=== PATIENT | male | born 2000 | race Caucasian/White ===

== ENCOUNTER 2022-03-24 13:05 | Inpatient (IN) ==
[2022-03-24] MEDS ORDERED: LORazepam 2 MG/1 ML VIAL ONE ×3 (13:46→13:51)
[2022-03-24] MEDS ORDERED: levETIRAcetam 1,000 MG in 0.9 % SODIUM CHLORIDE 100 ML IV STA (13:50)
[2022-03-24] MEDS ORDERED: KETAMINE HCL INJ 50 MG/ML 10 ML VIAL ONE (13:56)
[2022-03-24] MEDS ORDERED: diphenhydrAMINE 50 MG/ML VIAL ONE ×2 (14:00→15:12)
[2022-03-24 14:17] LABS: Basophils # (auto) 0.06 K/uL (0-0.2); Basophils % (auto) 0.5 %; Eosinophils # (auto) 0.04 K/uL (0-0.50); Eosinophils % (auto) 0.3 %; Hematocrit (blood only) 46.8 % (40.1-51.0); Immature Granulocytes # (auto) 0.11 K/uL (0.00-0.02); Immature Granulocytes % (auto) 0.9 %; Lymphocytes # (auto) 1.87 K/uL (1.2-3.4); Lymphocytes % (auto) 14.5 %; Mean Corpuscular Hemoglobin 32.5 pg (25.0-34.0); Mean Corpuscular Hgb Conc 34.2 g/dL (32.0-36.0); Mean Corpuscular Volume 94.9 fL (80.0-100.0); Mean Platelet Volume 10.1 fL (9.4-12.4); Monocytes # (auto) 0.67 K/uL (0.24-0.82); Monocytes % (auto) 5.2 %; Neutrophils # (auto) 10.18 K/uL (1.4-6.5); Neutrophils % (auto) 78.6 %; Platelet Count 307 K/uL (130-400); RDW Coefficient of Variation 12.2 % (11.5-14.5); RDW Standard Deviation 42.6 fL (36.4-46.3); Red Blood Count 4.93 M/uL (4.63-6.08); White Blood Count 12.93 K/ul (4.8-10.8)
[2022-03-24] MEDS ORDERED: LORazepam 2 MG/1 ML VIAL IV STA ×2 (14:18)
[2022-03-24] MEDS ORDERED: KETAMINE HCL INJ 50 MG/ML 10 ML VIAL IV STA ×2 (14:18→14:48)
--- NOTE | 2022-03-24 14:24 | Emergency Department Note ---
Impression & Plan Delirium, Seizure ED Provider Note HISTORY OF PRESENT ILLNESS: Patient is a 23-year-old male presenting with seizure-like activity. Per report, patient was found by his roommate in his parked car and having seizure- like activity. He was able to get the patient out of the car and called 911. On EMS arrival, they found the patient face down and postictal. Roommate reports that the patient was acting very abnormally today and seemed to be having significant panic attacks. No reported seizure history. No reported changes in medications. No reported head trauma. On arrival to the ER, the patient is actively seizing ROS: Patient currently has altered mental status and is unable to provide accurate information regarding ROS, histories, meds, or allergies. Any information regarding ROS, Past medical or surgical history, social or family history documented below has been obtained from the EMR. Any additional history regarding this cannot be obtained presently due to his medical condition. PHYSICAL EXAM: Constitutional: Patient appears in mild distress. HENT: Head: Normocephalic and atraumatic. Eyes: EOMI, PERRL Mouth/Throat: Mucous membranes moist. Mucousa is bloody. Small laceration to tongue. Neck: Trachea midline. Neck supple. Cardiovascular: Tachycardic with regular rhythm. No murmurs, rubs or gallops. Intact distal pulses. Pulmonary/Chest: No respiratory distress. Breath sounds clear and equal bilaterally. No wheezes or rales. No chest wall tenderness to palpation. Abdominal: BS +. Abdomen soft, no tenderness, rebound or guarding. Back: No midline spinal tenderness, no paraspinal tenderness, no CVA tenderness. Musculoskeletal: No edema, tenderness or deformity noted. Skin: Warm and dry. No rash, erythema, pallor or cyanosis Psychiatric: Unable to assess Neurological: Patient witnessed having a tonic-clonic seizure. Lasted for about 1 minute and was given 2 mg of Ativan. Patient is postictal and confused but moving all extremities spontaneously MDM: - Patient presented with seizure-like activity. On my assessment, the patient is actively seizing. He was given 2 mg of IV Ativan with cessation of the seizure. However, the patient was significantly confused postictal and was attempting to punch myself and nursing staff. He was given an additional 2 mg of Ativan but continued to be unruly. For patient and staff safety, the patient was given 100 mg IV ketamine and 50 mg of IV Benadryl for sedation. He was then placed in restraints in order to facilitate care. -About 20 minutes after sedation was given, patient began to thrash on the bed and attempt to block restraints. He was yelling obscenities at nursing staff. He was given an additional 100 mg of IV ketamine, Ativan and further Benadryl for sedation - EKG negative for acute ischemic changes. - Laboratory workup showed leukocytosis (WBC 12.93 - likely secondary to seizure episode); stable electrolytes; elevated anion gap (17 - due to elevated lactate); elevated lactate (16); elevated procal (21.23) - Bonner inserted. - Initial CXR negative for acute pathology. -Patient again awoke from sedation completely oriented yelling obscenities and attempting to swing at staff while in restraints. Decision was made to intubate the patient for agitated delirium. RSI with etomidate, 100 mg IV ketamine and rocuronium. Post-intubation sedation with propofol. - CT head wo contrast ordered. - Hospitlaist, Dr. Euceda, consulted for admission. - Patient admitted to ICU under hospitalist service for further evaluation and management. Endotracheal Intubation Indication: agitated delirium. The patient was on 100% oxygen via NC prior to the procedure. Suction, airway equipment, RSI drugs, respiratory equipment, and appropriate personnel were prepared prior to the initiation of the procedure. Induction was performed with 20 mg IV etomidate and 100 mg IV ketamine. After observing the clinical benefit of the medications, the airway was easily visualized utilizing a glidescope. A 7.5 size ETT tube was placed atraumatically to 25 cm using standard technique. The cuff inflated without signs of malfunction. There were bilateral breath sounds, positive colormetric change, no gastric sounds, a good capnography waveform, and post procedure pulse oximetry was 95%. Post intubation sedation was administered using propofol. There were no complications. ASSESSMENT AND PLAN: Diagnosis: agitated delirium; seizures Plan: admit Past Med/Surg History Medical History Lumbar pain Social History Smoking Status: Current some day smoker Hx Alcohol Use: Yes Alcohol Intake Frequency: 2-3 x/Week Alcohol Intake Frequency Comment: 1-2 drinks/week Hx Substance Use: No Preferred Language: Azeri current occupational status: student Feels Safe at Home: Yes Allergies Allergies Allergy/AdvReac Type Severity Reaction Status Date / Time No Known Allergies Allergy Verified 03/24/22 15:13 Home Meds Home Medications Medication Instructions Recorded Confirmed No Known Home Medications 03/24/22 03/24/22 Results & Data (ED) Vital Signs Vital Signs - 24 hr 03/24/22 13:16 03/24/22 13:27 03/24/22 15:03 Temperature 36.6 C Temperature Source Oral Pulse Rate 105 H Pulse Rate [Left Finger] Pulse Rhythm Regular Respiratory Rate 18 Respiratory Effort / Characteristics Non-Labored Spontaneous Respiratory Depth Normal Respiratory Pattern Regular Blood Pressure 118/62 Blood Pressure [Left Arm] Blood Pressure Mean 80 Blood Pressure Mean [Left Arm] Blood Pressure Position Lying Blood Pressure Position [Left Arm] Pulse Oximetry 95 100 Oxygen Delivery Method Room Air Room Air Nasal Cannula Oxygen Flow Rate 95 4 Sepsis Recent Fever Within 48 Hours No Sepsis New/Unexplained Change in Mental Status No Sepsis Action Taken by Nursing No Action Required Oxygen Flow Rate - Titration 2 Pulse Oximetry Post Tiitration 100 03/24/22 16:00 Temperature Temperature Source Pulse Rate Pulse Rate [Left Finger] 119 H Pulse Rhythm Respiratory Rate 21 Respiratory Effort / Characteristics Respiratory Depth Respiratory Pattern Blood Pressure Blood Pressure [Left Arm] 166/89 H Blood Pressure Mean Blood Pressure Mean [Left Arm] 114 Blood Pressure Position Blood Pressure Position [Left Arm] Lying Pulse Oximetry 95 Oxygen Delivery Method Mechanical Vent Oxygen Flow Rate Sepsis Recent Fever Within 48 Hours Sepsis New/Unexplained Change in Mental Status Sepsis Action Taken by Nursing Oxygen Flow Rate - Titration Pulse Oximetry Post Tiitration Laboratory Data Result diagrams: 03/24/22 13:22 03/24/22 13:22 Lab Results 03/24/22 03/24/22 03/24/22 Range/Units 13:22 13:22 13:22 WBC 12.93 H (4.8-10.8) K/ul RBC 4.93 (4.63-6.08) M/uL Hgb 16.0 (14.0-18.0) g/dl POC Hgb (14.0-18.0) g/dl Hct 46.8 (40.1-51.0) % POC Hct (42-52) % MCV 94.9 (80.0-100.0) fL MCH 32.5 (25.0-34.0) pg MCHC 34.2 (32.0-36.0) g/dL RDW Std Deviation 42.6 (36.4-46.3) fL RDW Coeff of Hailey 12.2 (11.5-14.5) % Plt Count 307 (130-400) K/uL MPV 10.1 (9.4-12.4) fL Immature Gran % (Auto) 0.9 % Neut % (Auto) 78.6 % Lymph % (Auto) 14.5 % [place] % (Auto) 5.2 % Eos % (Auto) 0.3 % Baso % (Auto) 0.5 % Neut # (Auto) 10.18 H (1.4-6.5) K/uL Lymph # (Auto) 1.87 (1.2-3.4) K/uL [place] # (Auto) 0.67 (0.24-0.82) K/uL Eos # (Auto) 0.04 (0-0.50) K/uL Baso # (Auto) 0.06 (0-0.2) K/uL Immature Gran # (Auto) 0.11 H (0.00-0.02) K/uL POC Sodium (135-144) mmol/L Sodium 136 (136-145) mmol/L POC Potassium (3.3-5.0) mmol/L Potassium 4.5 (3.5-5.1) mmol/L POC Chloride (101-112) mmol/L Chloride 103 (98-107) mmol/L Carbon Dioxide 16 L (21-32) mmol/L POC Total CO2 (24-31) mmol/L Anion Gap 17 H (3-11) POC Anion Gap (16-25) mmol/L POC BUN (7-18) mg/dl BUN 17 (6-23) mg/dl Creatinine 1.33 (0.6-1.4) mg/dl POC Creatinine (0.6-1.3) mg/dl Est Cr Clr Drug Dosing 95.6 ml/min Est GFR ( Amer) 87.3 ml/min Est GFR (Non-Af Amer) 75.3 ml/min BUN/Creatinine Ratio 12.8 (10-20) Glucose 159 H (70-99(Fasting)) mg/dl POC Glucose (other) (70-99) mg/dl Lactate (0.4-2.0) mmol/L Calcium 9.5 (8.5-10.1) mg/dl POC Ioniz Calcium Pat (1.12-1.32) mmol/l Total Bilirubin 0.4 (0.2-1.0) mg/dl AST 25 (13-39) U/L ALT 23 (7-52) U/L Alkaline Phosphatase 74 (34-104) U/L Total Protein 7.8 (6.0-8.3) gm/dl Albumin 4.9 (3.4-5.0) gm/dl Globulin 2.9 (2.5-4.0) gm/dl Albumin/Globulin Ratio 1.7 (0.9-2) Prolactin 21.23 ng/ml Urine Color Urine Appearance (Clear) Urine pH (4.5-7.5) Ur Specific [place] (1.000-1.030) Urine Protein (Negative) Urine Glucose (UA) (Negative) Urine Ketones (Negative) Urine Blood (Negative) Urine Nitrite (Negative) Urine Bilirubin (Negative) Urine Urobilinogen (Negative) Ur Leukocyte Esterase (Negative) Ethyl Alcohol mg/dL (<10.0) mg/dl 03/24/22 03/24/22 03/24/22 Range/Units 13:22 14:19 14:22 WBC (4.8-10.8) K/ul RBC (4.63-6.08) M/uL Hgb (14.0-18.0) g/dl POC Hgb 17.0 (14.0-18.0) g/dl Hct (40.1-51.0) % POC Hct 50 (42-52) % MCV (80.0-100.0) fL MCH (25.0-34.0) pg MCHC (32.0-36.0) g/dL RDW Std Deviation (36.4-46.3) fL RDW Coeff of Hailey (11.5-14.5) % Plt Count (130-400) K/uL MPV (9.4-12.4) fL Immature Gran % (Auto) % Neut % (Auto) % Lymph % (Auto) % [place] % (Auto) % Eos % (Auto) % Baso % (Auto) % Neut # (Auto) (1.4-6.5) K/uL Lymph # (Auto) (1.2-3.4) K/uL [place] # (Auto) (0.24-0.82) K/uL Eos # (Auto) (0-0.50) K/uL Baso # (Auto) (0-0.2) K/uL Immature Gran # (Auto) (0.00-0.02) K/uL POC Sodium 141 (135-144) mmol/L Sodium (136-145) mmol/L POC Potassium 4.0 (3.3-5.0) mmol/L Potassium (3.5-5.1) mmol/L POC Chloride 110 (101-112) mmol/L Chloride (98-107) mmol/L Carbon Dioxide (21-32) mmol/L POC Total CO2 10 L (24-31) mmol/L Anion Gap (3-11) POC Anion Gap 26.0 H (16-25) mmol/L POC BUN 19 H (7-18) mg/dl BUN (6-23) mg/dl Creatinine (0.6-1.4) mg/dl POC Creatinine 1.3 (0.6-1.3) mg/dl Est Cr Clr Drug Dosing ml/min Est GFR ( Amer) ml/min Est GFR (Non-Af Amer) ml/min BUN/Creatinine Ratio (10-20) Glucose (70-99(Fasting)) mg/dl POC Glucose (other) 161 H (70-99) mg/dl Lactate 16.0 H* (0.4-2.0) mmol/L Calcium (8.5-10.1) mg/dl POC Ioniz Calcium Pat 1.21 (1.12-1.32) mmol/l Total Bilirubin (0.2-1.0) mg/dl AST (13-39) U/L ALT (7-52) U/L Alkaline Phosphatase (34-104) U/L Total Protein (6.0-8.3) gm/dl Albumin (3.4-5.0) gm/dl Globulin (2.5-4.0) gm/dl Albumin/Globulin Ratio (0.9-2) Prolactin ng/ml Urine Color Urine Appearance (Clear) Urine pH (4.5-7.5) Ur Specific [place] (1.000-1.030) Urine Protein (Negative) Urine Glucose (UA) (Negative) Urine Ketones (Negative) Urine Blood (Negative) Urine Nitrite (Negative) Urine Bilirubin (Negative) Urine Urobilinogen (Negative) Ur Leukocyte Esterase (Negative) Ethyl Alcohol mg/dL < 10.0 (<10.0) mg/dl 03/24/22 Range/Units 15:30 WBC (4.8-10.8) K/ul RBC (4.63-6.08) M/uL Hgb (14.0-18.0) g/dl POC Hgb (14.0-18.0) g/dl Hct (40.1-51.0) % POC Hct (42-52) % MCV (80.0-100.0) fL MCH (25.0-34.0) pg MCHC (32.0-36.0) g/dL RDW Std Deviation (36.4-46.3) fL RDW Coeff of Hailey (11.5-14.5) % Plt Count (130-400) K/uL MPV (9.4-12.4) fL Immature Gran % (Auto) % Neut % (Auto) % Lymph % (Auto) % [place] % (Auto) % Eos % (Auto) % Baso % (Auto) % Neut # (Auto) (1.4-6.5) K/uL Lymph # (Auto) (1.2-3.4) K/uL [place] # (Auto) (0.24-0.82) K/uL Eos # (Auto) (0-0.50) K/uL Baso # (Auto) (0-0.2) K/uL Immature Gran # (Auto) (0.00-0.02) K/uL POC Sodium (135-144) mmol/L Sodium (136-145) mmol/L POC Potassium (3.3-5.0) mmol/L Potassium (3.5-5.1) mmol/L POC Chloride (101-112) mmol/L Chloride (98-107) mmol/L Carbon Dioxide (21-32) mmol/L POC Total CO2 (24-31) mmol/L Anion Gap (3-11) POC Anion Gap (16-25) mmol/L POC BUN (7-18) mg/dl BUN (6-23) mg/dl Creatinine (0.6-1.4) mg/dl POC Creatinine (0.6-1.3) mg/dl Est Cr Clr Drug Dosing ml/min Est GFR ( Amer) ml/min Est GFR (Non-Af Amer) ml/min BUN/Creatinine Ratio (10-20) Glucose (70-99(Fasting)) mg/dl POC Glucose (other) (70-99) mg/dl Lactate (0.4-2.0) mmol/L Calcium (8.5-10.1) mg/dl POC Ioniz Calcium Pat (1.12-1.32) mmol/l Total Bilirubin (0.2-1.0) mg/dl AST (13-39) U/L ALT (7-52) U/L Alkaline Phosphatase (34-104) U/L Total Protein (6.0-8.3) gm/dl Albumin (3.4-5.0) gm/dl Globulin (2.5-4.0) gm/dl Albumin/Globulin Ratio (0.9-2) Prolactin ng/ml Urine Color Yellow Urine Appearance Clear (Clear) Urine pH 5.0 (4.5-7.5) Ur Specific [place] 1.014 (1.000-1.030) Urine Protein 1+ H (Negative) Urine Glucose (UA) Negative (Negative) Urine Ketones Negative (Negative) Urine Blood 2+ H (Negative) Urine Nitrite Negative (Negative) Urine Bilirubin Negative (Negative) Urine Urobilinogen Negative (Negative) Ur Leukocyte Esterase Negative (Negative) Ethyl Alcohol mg/dL (<10.0) mg/dl Administered Medications Propofol (Diprivan) 1,000 mg in 100 mls @ 10.956 mls/hr IV .[id number] [facility]; Protocol Stop: 03/27/22 15:59 Last Admin: 03/24/22 16:00 Dose: 20 mcg/kg/min, 11 mls/hr Documented By: LOLA Co-signed By: MARK Propofol (Propofol Bolus From Bag) 20 mg IV Q5M PRN PRN Reason: Sedation Stop: 03/27/22 15:56 Last Admin: 03/24/22 16:25 Dose: 20 mg Documented By: LOLA Co-signed By: MARK Discontinued Medications Diphenhydramine HCl (Diphenhydramine 50 Mg/Ml Vial) Confirm Administered Dose 50 mg .ROUTE .STK-MED ONE Stop: 03/24/22 14:01 Last Admin: 03/24/22 14:33 Dose: 50 mg Documented By: PEARL Diphenhydramine HCl (Diphenhydramine 50 Mg/Ml Vial) Confirm Administered Dose 50 mg .ROUTE .STK-MED ONE Stop: 03/24/22 15:13 Last Admin: 03/24/22 15:17 Dose: 25 mg Documented By: PEARL Levetiracetam 1,000 mg/ Sodium (Chloride) 110 mls @ 440 mls/hr IV NOW STA Stop: 03/24/22 14:04 Last Infusion: 03/24/22 14:57 Dose: 0 mls/hr Documented By: Admin: 03/24/22 14:32 Dose: 440 mls/hr Documented By: PEARL Sodium Chloride (Nss 1000ml) 1,000 mls @ 999 mls/hr IV .Q1H1M ONE Stop: 03/24/22 15:48 Last Admin: 03/24/22 14:57 Dose: 999 mls/hr Documented By: NEETU Ketamine HCl (Ketamine Hcl Inj 50 Mg/Ml 10 Ml Vial) Confirm Administered Dose 500 mg .ROUTE .STK-MED ONE Stop: 03/24/22 13:57 Last Admin: 03/24/22 14:32 Dose: Not Given Documented By: PEARL Ketamine HCl (Ketamine Hcl Inj 50 Mg/Ml 10 Ml Vial) 100 mg IV NOW STA Stop: 03/24/22 14:19 Last Admin: 03/24/22 14:31 Dose: 100 mg Documented By: PEARL Ketamine HCl (Ketamine Hcl Inj 50 Mg/Ml 10 Ml Vial) 100 mg IV NOW STA Stop: 03/24/22 14:49 Last Admin: 03/24/22 14:56 Dose: 100 mg Documented By: PEARL Lorazepam (Lorazepam 1 Mg/1 Ml Syr) Confirm Administered Dose 1 mg .ROUTE .STK- MED ONE Stop: 03/24/22 13:47 Last Admin: 03/24/22 14:32 Dose: Not Given Documented By: PEARL Lorazepam (Lorazepam 1 Mg/1 Ml Syr) Confirm Administered Dose 1 mg .ROUTE .STK- MED ONE Stop: 03/24/22 13:49 Last Admin: 03/24/22 14:32 Dose: Not Given Documented By: PEARL Lorazepam (Lorazepam 1 Mg/1 Ml Syr) Confirm Administered Dose 2 mg .ROUTE .STK- MED ONE Stop: 03/24/22 13:52 Last Admin: 03/24/22 14:32 Dose: Not Given Documented By: PEARL Lorazepam (Lorazepam 1 Mg/1 Ml Syr) 2 mg IV NOW STA; Protocol Stop: 03/24/22 14:19 Last Admin: 03/24/22 14:32 Dose: 2 mg Documented By: PEARL Lorazepam (Lorazepam 1 Mg/1 Ml Syr) 2 mg IV NOW STA; Protocol Stop: 03/24/22 14:19 Last Admin: 03/24/22 14:31 Dose: 2 mg Documented By: PEARL Miscellaneous (Rapid Sequence Induction Bag) Confirm Administered Dose 1 each .ROUTE .STK-MED ONE Stop: 03/24/22 15:37 Last Admin: 03/24/22 16:19 Dose: Not Given Documented By: LOLA Propofol (Propofol Iv Emulsion 10 Mg/Ml 100 Ml Vial) Confirm Administered Dose 1,000 mg IV .STK-MED ONE Stop: 03/24/22 15:48 Last Admin: 03/24/22 16:19 Dose: Not Given Documented By: LOLA Imaging Data Radiologist's Impression: Chest X-Ray 03/24/22 14:02 SINGLE VIEW CHEST CLINICAL HISTORY: Seizure. FINDINGS: An AP, portable, supine chest radiograph is obtained. No prior studies are available for comparison at the time of dictation. The examination is degraded by portable technique and apical lordotic positioning. The cardiomediastinal silhouette is unremarkable. The lungs and pleural spaces are clear. No pneumothorax is seen. The bony thorax is grossly intact. IMPRESSION: No active disease in the chest. ACT 112: Negative or not required by law. Electronically signed by: Luis Contreras M.D. 03/24/2022 2:35 PM Chest X-Ray 03/24/22 16:00 SINGLE VIEW CHEST CLINICAL HISTORY: Intubation. FINDINGS: 2 AP, portable, supine chest radiographs are compared to study dated 03/24/2022. An endotracheal tube has been placed. The tip projects 2.5 cm above the trever. The cardiomediastinal silhouette is unremarkable. Bilateral airspace opacities are new from previous. No large pleural effusion or pneumothorax is seen. The bony thorax is grossly intact. IMPRESSION: 1. An endotracheal tube has been placed as above. 2. Multifocal bilateral airspace opacities are new from today's earlier examination. The appearance/time course favors developing pulmonary edema. Multifocal pneumonia could appear similar and clinical correlation will be required. Radiographic follow-up to resolution is recommended. ACT 112: Negative or not required by law. Electronically signed by: Luis Contreras M.D. 03/24/2022 4:17 PM Discharge Plan Visit Data Chief Complaint: Seizure Stated Complaint: SEIZURE ED Provider: Patricia Guzman Discharge Problem: Delirium, Seizure Patient Disposition: Admitted As Inpatient Forms Stand Alone [facility]: [facility] Prescriptions Prescriptions: No Action No Known Home Medications Referrals Referrals: PCP,NO [Primary Care Provider] -
[2022-03-24 14:33] LABS: iSTAT Creatinine 1.3 mg/dl (0.6-1.3); iSTAT Ionized Calcium 1.21 mmol/l (1.12-1.32)
[2022-03-24 14:35] LABS: Albumin Globulin Ratio 1.7 (0.9-2); Albumin Level 4.9 gm/dl (3.4-5.0); BUN Creatinine Ratio 12.8 (10-20); Bilirubin,Total 0.4 mg/dl (0.2-1.0); Calcium 9.5 mg/dl (8.5-10.1); Creatinine Clr Calc Pharmacy 95.6 ml/min; Est GFR (African American) 87.3 ml/min; Est GFR (Non-African American) 75.3 ml/min; Globulin 2.9 gm/dl (2.5-4.0); Potassium 4.5 mmol/L (3.5-5.1); Total Protein 7.8 gm/dl (6.0-8.3)
--- NOTE | 2022-03-24 14:37 | XRay Report ---
SINGLE VIEW CHEST CLINICAL HISTORY: Seizure. FINDINGS: An AP, portable, supine chest radiograph is obtained. No prior studies are available for co mparison at the time of dictation. The examination is degraded by portable technique and apical lordo tic positioning. The cardiomediastinal silhouette is unremarkable. The lungs and pleural spaces are c lear. No pneumothorax is seen. The bony thorax is grossly intact. IMPRESSION: No active disease in the chest. ACT 112: Negative or not required by law. Electronically signed by: Luis Contreras M.D. 03/24/2022 2:35 PM
[2022-03-24] MEDS ORDERED: SODIUM CHLORIDE 0.9% 1000ML 1,000 ML IV ONE ×2 (14:48→17:27)
[2022-03-24] MEDS ORDERED: RAPID SEQUENCE INDUCTION BAG ONE (15:36)
[2022-03-24] MEDS ORDERED: PROPOFOL IV EMULSION 10 MG/ML 100 ML VIAL IV ONE (15:47)
[2022-03-24] MEDS ORDERED: STAT IV Infusion **Titration per Protocol STA ×2 (15:57→16:47)
[2022-03-24] MEDS: propofoL 1,000 MG/100 ML VIAL IV SCH ×2 (16:00→21:45)
[2022-03-24 16:05] LABS: Appearance Urine Clear (Clear); Bacteria Urine Automated Negative (Negative); Bilirubin Urine Negative (Negative); Blood Urine 2+ (Negative); Color Urine Yellow; Glucose Urine UA Negative (Negative); Ketones Urine Negative (Negative); Leukocyte Esterase Urine Negative (Negative); Nitrite Urine Negative (Negative); Protein Urine 1+ (Negative); RBC Urine Automated 0-4 /hpf (0-4); Specific Gravity Urine 1.014 (1.000-1.030); Urobilinogen Urine Negative (Negative)
--- NOTE | 2022-03-24 16:19 | XRay Report ---
SINGLE VIEW CHEST CLINICAL HISTORY: Intubation. FINDINGS: 2 AP, portable, supine chest radiographs are compared to study dated 03/24/2022. An endotrac heal tube has been placed. The tip projects 2.5 cm above the trever. The cardiomediastinal silhouette is unremarkable. Bilateral airspace opacities are new from previous. No large pleural effusion or pn eumothorax is seen. The bony thorax is grossly intact. IMPRESSION: 1. An endotracheal tube has been placed as above. 2. Multifocal bilateral airspace opacities are new from today's earlier examination. The appearance/t cristina course favors developing pulmonary edema. Multifocal pneumonia could appear similar and clinical correlation will be required. Radiographic follow-up to resolution is recommended. ACT 112: Negative or not required by law. Electronically signed by: Luis Contreras M.D. 03/24/2022 4:17 PM
--- NOTE | 2022-03-24 16:19 | History & Physical Report ---
Date of Service March 24, 2022 Assessment & Plan (1) Seizure: Plan: Seizure, delirium.? Encephalopathy No known prior history of seizure Observed seizure activity while in the ER, postictal delirium Patient with history of marijuana use, no known heart drug use Extreme agitation in ER required intubation and sedation Due to severe agitation did receive a total of 300 mg ketamine, 75 mg Benadryl, 5 mg Ativan, 20 mg etomidate, and subsequently rocuroni um/propofol/fentanyl after intubation for airway protection Loaded with 1 g Keppra, continued 500 mg twice daily --> discontinued while on propofol U tox positive for marijuana, negative for PCP CThead pending Consistent with seizure lactate is elevated, patient with a mild leukocytosis? Demargination, no history of fever leading up to admission. - CT naf VBG trended Afebrile on admission, developed a fever after admission. MRI pending Empirically covered with acyclovir/azithromycin/ceftriaxone/vancomycin/dexamethasone Acute hypoxic respiratory failure,? Aspiration pneumonia Initially reported no respiratory symptoms, by roommate reported may have had a sore throat 5 days ago Did develop a fever following admission, MRI pended and covered with empiric antibiotics as Given severe illness and presentation covered with antibiotics as above Blood cultures pending Currently intubated on mechanical ventilation as noted Patient with past history of vape use, none in last 6 months per his brother and no observed vape use per patient's roommate. DVT prophylaxis: SCDs CODE STATUS: Full code Disposition: ICU Diet: N.p.o. (2) Delirium: History of Present Illness Primary Care Provider: NO PCP Elías is a 22-year-old male who resents with altered mental status and who was found down, and on arrival to the ER was actively seizing. Patient was reportedly with altered behavior and increased anxiety for 1 day. 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 He received 200 mg of ketamine, 75 mg of Benadryl, and a total of 5 mg of Ativan and still remained extremely combative. Patient received 20 mg of etomidate, another 100 mg of ketamine, and required rocuronium and intubation for sedation and airway protection. He was loaded with 1 g of Keppra for observed seizure on entry. Urine tox is pending. CThead is pending EKG: Sinus tachycardia, rate 110. No ST segment changes. No T wave inversions. History unable to be obtained the patient did intubation and sedation. Did talk to patient's brother and mother by phone. Patient's mother is Latrice Contreras available at [phone], who lives in [place] and is currently in route to the hospital. She reports that he is otherwise healthy with no chronic medical problems. Did have acne on Accutane as a teenager and history of some bloody noses in childhood, otherwise no medical problems and takes no regular medications. No known medication allergies. Occasional social alcohol use, marijuana use, no known recreational drug/heart drug use. No personal or family history of seizures. No family history of early VA, encephalopathy, heart/lung/renal disease. 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 Per report he was last normal yesterday evening and has had no fever, chills, cough and was not complaining of infecti ous symptoms or being ill leading up to his hospitalization. Per brother has vape in the past but has not in the last couple of months. Per patient's remain he has never seen the patient vape Medical History: Reviewed Medications: Reviewed Surgical History: Reviewed Allergies: Reviewed Social History: Social alcohol, marijuana use. No known heart drug/recreational drug use Code Status: Full code Allergies Allergy/AdvReac Type Severity Reaction Status Date / Time No Known Allergies Allergy Verified 03/24/22 15:13 Home Medications Medication Instructions Recorded Confirmed Type No Known Home Medications 03/24/22 03/24/22 History Past Med/Surg History Medical History Acute encephalopathy Acute hypoxemic respiratory failure Lumbar pain Marijuana abuse Sepsis Social History Smoking Status: Current some day smoker Hx Alcohol Use: Yes Alcohol Intake Frequency: 2-3 x/Week Alcohol Intake Frequency Comment: 1-2 drinks/week Hx Substance Use: No Preferred Language: [place] current occupational status: student Feels Safe at Home: Yes Review of Systems Review of Systems: Unobtainable due to ETT Physical Exam Physical Exam: General: Sedated, ETT in place. HEENT: Atraumatic, normocephalic. Pulm: Intubated, ventilated, diffusely coarse Cardiac: Tachycardic, -mrg. Radial pulses intact and symmetrical. Abdominal: Nontender, nondistended, soft. BS present. Extremities: Warm, dry Results & Data Results & [facility] ([facility]) Vital Signs (Past 12 Hours) Vital Signs Temp Pulse Resp BP Pulse Ox O2 Del Method O2 Flow Rate 03/24/22 15:03 100 Nasal Cannula 4 03/24/22 13:27 Room Air 95 03/24/22 13:16 36.6 C 105 H 18 118/62 95 Room Air PG Care Time/CCT Total # of Minutes Spent Total Time Spent with Patient: Total time spent is greater than 50% in coordination of care (as documented) at patient's floor/unit and/or counseling patient: Coding Level of Care Code 47591 Initial Inpt Care Lvl 3 Diagnoses Seizure R56.9 Delirium R41.0
[2022-03-24] MEDS: PROPOFOL BOLUS FROM BAG IV PRN ×4 (16:25→17:00)
[2022-03-24 16:39] LABS: Uric Acid Crystals Urine Present (None Prsent)
[2022-03-24] MEDS ORDERED: fentaNYL citrate 2,500 MCG/250 ML BAG IV ONE (16:45)
[2022-03-24] MEDS ORDERED: fentaNYL BOLUS from BAG IV STA (16:48)
[2022-03-24] MEDS: fentaNYL citrate 2,500 MCG/250 ML BAG IV SCH (16:50)
[2022-03-24 16:54] LABS: Amphetamines+Metham, Urine Neg (Neg); Barbiturates, Urine Neg (Neg); Benzodiazepine, Urine Neg (Neg); Cocaine, Urine Neg (Neg); MDMA (Ecstacy), Urine Neg (Neg); Methadone, Urine Neg (Neg); Opiate, Urine Neg (Neg); Phencyclidine, Urine Neg (Neg)
--- NOTE | 2022-03-24 16:56 | Electrocardiogram Report ---
Test Reason : Blood Pressure : / mmHG Vent. Rate : 111 BPM Atrial Rate : 111 BPM P-R Int : 132 ms QRS Dur : 086 ms QT Int : 332 ms P-R-T Axes : 063 061 036 degrees QTc Int : 451 ms Poor data quality, interpretation may be adversely affected Sinus tachycardia Poor R wave progression, consider anterior MN vs. lead placement vs. LVH Abnormal ECG No previous ECGs available Confirmed by Jose Elias Schulz ([id number]) on 03/24/2022 4:56:09 PM Referred By: Confirmed By:Jose Elias Schulz
[2022-03-24] MEDS: fentaNYL BOLUS from BAG IV PRN (17:00)
[2022-03-24] MEDS ORDERED: LORazepam 2 MG/1 ML VIAL IV PRN (17:04)
[2022-03-24 17:11] LABS: Base Excess VBG -12.6 mEq/L; HCO3 VBG 17 mmol/L; Oxygen Saturation VBG 99.3 %; PCO2 VBG 50 mmHg (38-50); PO2 VBG 120 mmHg; pH VBG 7.13 (7.36-7.41)
[2022-03-24 17:38] LABS: iSTAT Arterial Blood Gas HCO3 20 meg/L (19-24); iSTAT Arterial Blood Gas pCO2 41 mmHg (35-46); iSTAT Arterial Blood Gas pH 7.31 (7.35-7.45); iSTAT Arterial Blood Gas pO2 86 mmHg (80-95); iSTAT Carbon Dioxide 21 mmol/L (24-31); iSTAT Hematocrit 38 % (42-52); iSTAT Hemoglobin 12.9 g/dl (14.0-18.0); iSTAT Potassium 4.3 mmol/L (3.3-5.0); iSTAT Sodium 140 mmol/L (135-144)
--- NOTE | 2022-03-24 18:04 | CT Scan Report ---
CT SCAN OF THE BRAIN WITHOUT IV CONTRAST CLINICAL HISTORY: New onset seizure. COMPARISON STUDY: No priors. TECHNIQUE: Unenhanced axial CT scan of the brain is performed from the vertex to the skull base. A d ose lowering technique was utilized adhering to the principles of ALARA. The skull base was scanned t wice due to motion artifact. CT DOSE: 2360.32 mGy.cm FINDINGS: An endotracheal tube is noted on the security guard dispatcher tomogram Brain parenchyma: The brain parenchyma is normal in appearance. There is no hemorrhage, mass effect, or evidence of acute territorial ischemia by CT criteria. Romero-white matter differentiation is preser chelita. No extra-axial fluid collection is seen. Ventricles, sulci, cisterns: Normal in configuration. Intracranial vasculature: The visualized intracranial vasculature at the skull base is normal in appe arance. Calvarium: Unremarkable. Sinuses and mastoids: The visualized paranasal sinuses are clear. The mastoid air cells are well pneu matized. Orbits: The bony orbits are grossly intact. IMPRESSION: There is no hemorrhage, mass effect, or evidence of acute territorial ischemia by CT willem orta. ACT 112: Negative or not required by law. Electronically signed by: Luis Contreras M.D. 03/24/2022 6:02 PM
[2022-03-24] MEDS ORDERED: NORMOSOL-R 1,000 ML IV SCH (18:29)
[2022-03-24] MEDS ORDERED: NORMOSOL-R 1,000 ML IV ONE (18:35)
[2022-03-24] MEDS ORDERED: AZITHROMYCIN 500 MG in DEXTROSE 5% 250 ML IV STA ×2 (18:35→21:48)
[2022-03-24] MEDS ORDERED: VANCOMYCIN CONSULT ACTIVE PRN ×2 (18:38→18:43)
[2022-03-24] MEDS ORDERED: VANCOMYCIN HCL 1,750 MG in SODIUM CHLORIDE 0.9% 500 ML IV ONE (18:38)
[2022-03-24] MEDS ORDERED: ETOMIDATE 2 MG/ML 20 ML VIAL IV ONE (18:40)
[2022-03-24] MEDS ORDERED: ROCURONIUM BROMIDE 10 MG/ML 5 ML VIAL IV ONE (18:40)
[2022-03-24] MEDS ORDERED: LACTATED RINGER'S 1,000 ML IV ONE ×2 (18:43→21:36)
[2022-03-24] MEDS ORDERED: cefTRIAXone SODIUM 2,000 MG in DEXTROSE 5% 50 ML IV SCH (18:45)
--- NOTE | 2022-03-24 19:04 | Critical Care Consultation ---
Date of Consultation March 24, 2022 Assessment & Plan (1) Acute hypoxemic respiratory failure: Chest x-ray with bilateral reticulonodular infiltrates. CT chest without contrast pending. ?EVALI. ? Aspiration pneumonitis ? Atypical pneumonia ? Vasculitis such as pulmonary renal syndrome in the context of blood and protein in the urine. Obtain sputum cultures. Broad-spectrum antibiotics. Bio fire ordered. Consider bronchoscopy when more stable. Dexamethasone for potential idiopathic pneumonitis. Continue lung protective ventilation strategy. (2) Acute encephalopathy: Patient with likely seizure. ? Ingestion. ? Encephalitis versus meningitis. MRI brain pending. CT head negative. Will need to consider LP. We will start empiric acyclovir. Dexamethasone for potential meningitis. Check Tylenol level, salicylate and CK level. Doubt serotonin syndrome or neuroleptic malignant syndrome. If CK level elevated, will discontinue fentanyl. Hold on further antiepileptic at this time. Consider EEG. Patient currently on propofol. (3) Sepsis: Broad-spectrum antibiotics as above with vancomycin, acyclovir, azithromycin and ceftriaxone. Blood cultures, urine cultures and sputum cultures ordered. We will consider LP. (4) Marijuana abuse: ?EVALI Plan CRITICAL CARE TIME - I have personally spent 51 minutes of critical care time in the direct management of this patient. This is a life/limb threatening event. This includes time spent evaluating patient, direct bedside care, chart review, placing orders, interpretation of diagnostic studies, discussion with consultants, patient, and family members, as well as other required patient management activities. This time is exclusive of all separately billable procedures, and teaching time and separate from and in addition to any other critical care service time. History of Present Illness Attending Physician: Orlin Euceda MD History of Present Illness 22-year-old male who presented to the hospital with seizure-like activity. No history is obtainable from the patient as he is currently intubated and sedated. History is obtained from discussion with the hospitalist, bedside nurse and chart review. Apparently he was brought in by EMS as his roommate thought that the patient was having seizure-like activity. In the ER he was found to be extremely combative and was ultimately intubated due to hypoxia and airway protection. On exam in the ICU, he appeared intubated and sedated. He was tachypneic on the ventilator. He is currently on propofol and fentanyl. We increased the fentanyl and propofol rates and the patient appeared more comfortable and in sync with the ventilator. Labs were significant for a mixed respiratory and metabolic acidosis. Urine tox screen was significant for marijuana. Mild leukocytosis was seen. Severe lactic acidosis on presentation was seen up to 16 which decreased to 2.4. Allergies Allergy/AdvReac Type Severity Reaction Status Date / Time No Known Allergies Allergy Verified 03/24/22 15:13 Home Medications Medication Instructions Recorded Confirmed Type No Known Home Medications 03/24/22 03/24/22 History Patient History Medical History (Updated 03/24/22 @ 18:58 by Geo Coppola MD) Acute encephalopathy Acute hypoxemic respiratory failure Lumbar pain Marijuana abuse Sepsis Social History Smoking Status: Current some day smoker Hx Alcohol Use: Yes Alcohol Intake Frequency: 2-3 x/Week Alcohol Intake Frequency Comment: 1-2 drinks/week Hx Substance Use: No Preferred Language: Lithuanian current occupational status: student Feels Safe at Home: Yes Review of Systems Review of Systems: All systems reviewed & are unremarkable except as noted in HPI & below Physical Exam Physical Exam: Constitutional: Patient appears to be of their stated age. Patient is in no apparent distress. Patient is well-developed. Eyes: Pupils are equal round and reactive to light. Conjunctivae are normal. Anicteric sclera. Ears nose, mouth and throat: Intubated with a 7-1/2 tube. Neck: Trachea is midline. Visual inspection is normal. Respiratory: Coarse breath sounds bilaterally. Cardiovascular: Regular rate and rhythm. No murmurs. No edema. Gastrointestinal: Normal bowel sounds, soft, nontender and nondistended. No hepatosplenomegaly noted. Musculoskeletal: No cyanosis. Patient is able to move all extremities. Strength is 5 out of 5 in the upper and lower extremities. Skin: No rashes, warm dry and intact. Neurologic: No obvious focal neurological deficits seen. Psychiatric: Alert and oriented x3 with a euthymic affect. Results & Data Results & Data ([facility]) Vital Signs (Past 12 Hours) Vital Signs Temp Pulse Pulse Resp BP BP Pulse Ox 03/24/22 17:31 98 H 18 92/54 L 98 03/24/22 16:51 118 H 22 140/74 95 03/24/22 16:49 124 H 20 95 03/24/22 16:00 119 H 21 166/89 H 95 03/24/22 15:03 100 03/24/22 13:27 03/24/22 13:16 36.6 C 105 H 18 118/62 95 O2 Del Method O2 Flow Rate FiO2 03/24/22 17:31 Mechanical Vent 03/24/22 16:51 Mechanical Vent 03/24/22 16:49 30 03/24/22 16:00 Mechanical Vent 03/24/22 15:03 Nasal Cannula 4 03/24/22 13:27 Room Air 95 03/24/22 13:16 Room Air Coding Level of Care Code Critical Care 1st 30-74 mins Diagnoses Acute hypoxemic respiratory failure J96.01 Acute encephalopathy G93.40 Sepsis A41.9 Marijuana abuse F12.10 Time Spent (min) 51
[2022-03-24] MEDS ORDERED: VANCOMYCIN HCL 2,250 MG in SODIUM CHLORIDE 0.9% 500 ML IV SCH (19:30)
[2022-03-24] MEDS: dexAMETHasone 6 MG in SYRINGE 0 ML IV SCH (20:09)
[2022-03-24] MEDS ORDERED: Nursing to Pharmacy Communication SCH ×2 (20:45→21:45)
[2022-03-24 20:48] LABS: Adenovirus PCR Not Detected (NotDetected); Bordetella parapertussis PCR Not Detected (NotDetected); Bordetella pertussis PCR Not Detected (NotDetected); Chlamydia pneumoniae PCR Not Detected (NotDetected); Coronavirus 229E PCR Not Detected (NotDetected); Coronavirus CoV-2 (COVID19)PCR Not Detected (NotDetected); Coronavirus HKU1 PCR Not Detected (NotDetected); Coronavirus NL63 PCR Not Detected (NotDetected); Coronavirus OC43PCR Not Detected (NotDetected); Human Metapneumovirus PCR Not Detected (NotDetected); Influenza A PCR Not Detected (NotDetected); Influenza B PCR Not Detected (NotDetected); Mycoplasma pneumoniae PCR Not Detected (NotDetected); Parainfluenza Virus 1 PCR Not Detected (NotDetected); Parainfluenza Virus 2 PCR Not Detected (NotDetected); Parainfluenza Virus 3 PCR Not Detected (NotDetected); Parainfluenza Virus 4 PCR Not Detected (NotDetected); Respiratory Syncytial VirusPCR DETECTED (NotDetected)
[2022-03-24 20:51] LABS: Rhinovirus/Enterovirus PCR DETECTED (NotDetected)
[2022-03-24] MEDS ORDERED: FLUARIX QUADRIVALENT 0.5 ML SYR IM ONE (20:57)
[2022-03-24 21:06] LABS: Acetaminophen < 3 ug/ml (10-30); Salicylate < 3.0 mg/dl (3.0-30)
[2022-03-24] MEDS ORDERED: GADOBUTROL 65ML VIAL IV ONE (21:17)
[2022-03-24] MEDS: ACYCLOVIR SOD 900 MG in DEXTROSE 5% 250 ML IV SCH (22:16)
[2022-03-24] MEDS: ICU Protocol for HYPERglycemia SCH (22:38)
[2022-03-25] MEDS: cefTRIAXone SODIUM 2,000 MG in DEXTROSE 5% 50 ML IV SCH ×3 (00:08→20:54)
[2022-03-25 01:13] LABS: Appearance Urine Clear (Clear); Bacteria Urine Automated Negative (Negative); Bilirubin Urine Negative (Negative); Blood Urine 1+ (Negative); Color Urine Yellow; Epithelial Cell Urine Auto 20-30 /lpf (0-5); Glucose Urine UA Negative (Negative); Ketones Urine Negative (Negative); Leukocyte Esterase Urine Trace (Negative); Nitrite Urine Negative (Negative); Protein Urine Negative (Negative); RBC Urine Automated 0-4 /hpf (0-4); Specific Gravity Urine 1.005 (1.000-1.030); Urobilinogen Urine Negative (Negative); pH Urine 5.5 (4.5-7.5)
[2022-03-25] MEDS: propofoL 1,000 MG/100 ML VIAL IV SCH ×6 (01:27→22:24)
[2022-03-25] MEDS: ACYCLOVIR SOD 900 MG in DEXTROSE 5% 250 ML IV SCH (03:23)
[2022-03-25] MEDS: dexAMETHasone 6 MG in SYRINGE 0 ML IV SCH (03:23)
[2022-03-25 04:37] LABS: Albumin Globulin Ratio 1.7 (0.9-2); Albumin Level 3.6 gm/dl (3.4-5.0); BUN Creatinine Ratio 10.7 (10-20); Bilirubin,Total 0.4 mg/dl (0.2-1.0); Creatinine Clr Calc Pharmacy 64.4 ml/min; Est GFR (African American) 54.3 ml/min; Est GFR (Non-African American) 46.9 ml/min; Globulin 2.1 gm/dl (2.5-4.0); Magnesium 2.4 mg/dl (1.7-2.4); Phosphorus 4.8 mg/dl (2.5-4.9); Potassium 4.1 mmol/L (3.5-5.1); Total Protein 5.7 gm/dl (6.0-8.3)
[2022-03-25 04:39] LABS: Basophils # (auto) 0.01 K/uL (0-0.2); Basophils % (auto) 0.1 %; Hematocrit (blood only) 34.7 % (40.1-51.0); Immature Granulocytes # (auto) 0.03 K/uL (0.00-0.02); Immature Granulocytes % (auto) 0.3 %; Lymphocytes # (auto) 0.81 K/uL (1.2-3.4); Lymphocytes % (auto) 7.8 %; Mean Corpuscular Hemoglobin 32.7 pg (25.0-34.0); Mean Corpuscular Hgb Conc 34.6 g/dL (32.0-36.0); Mean Corpuscular Volume 94.6 fL (80.0-100.0); Mean Platelet Volume 9.7 fL (9.4-12.4); Monocytes # (auto) 0.65 K/uL (0.24-0.82); Monocytes % (auto) 6.3 %; Neutrophils # (auto) 8.84 K/uL (1.4-6.5); Neutrophils % (auto) 85.5 %; Platelet Count 219 K/uL (130-400); RDW Coefficient of Variation 12.5 % (11.5-14.5); RDW Standard Deviation 43.8 fL (36.4-46.3); Red Blood Count 3.67 M/uL (4.63-6.08); White Blood Count 10.34 K/ul (4.8-10.8)
--- NOTE | 2022-03-25 07:06 | XRay Report ---
XR chest 1V portable CLINICAL HISTORY: Endotracheal tube placement. COMPARISON STUDY: Chest radiograph March 24, 2022 at 4:[address] March 24, 2022. FINDINGS: Tip of endotracheal tube is 4.6 cm above the trever. There is no pneumothorax. Cardiac size is normal. No pleural effusion is identified. Bilateral lower lobe consolidation is again noted. IMPRESSION: 1. Satisfactory positioning of the endotracheal tube. 2. Persistent bibasilar consolidation. This may reflect pneumonia or aspiration pneumonitis. ACT 112: Negative or not required by law. Electronically signed by: Tyler Shepard M.D. 03/25/2022 7:05 AM
[2022-03-25] MEDS: ICU Protocol for HYPERglycemia SCH ×4 (07:34→21:07)
--- NOTE | 2022-03-25 07:35 | CT Scan Report ---
CT chest diagnostic wo con CT DOSE: 652.50 mGy.cm CLINICAL HISTORY: 22 years-old Male with evaluate pulmonoary barton for lung injury pattern. Acute r espiratory failure TECHNIQUE: Multiaxial CT images of the chest were performed without contrast. A dose lowering techni que was utilized adhering to the principles of ALARA. COMPARISON: Chest radiograph of same day FINDINGS: Unremarkable thyroid. Residual thymic tissue anterior mediastinum. Subcentimeter mediastina l and hilar lymph nodes are likely reactive. The heart is normal in size. Unremarkable thoracic aorta . Trace pleural effusions. Endotracheal tube is present within the trachea, 2.6 cm superior to the bayron na. Dense dependent lower lobe consolidation with additional linear consolidation within the medial s egment of the right middle lobe. Associated air bronchograms with groundglass densities. Mild additio nal dependent consolidation of the upper lobes. No overt pulmonary edema identified. Limited exam secondary to upper extremity positioning. No acute process of the imaged upper abdomen. No acute fracture is seen. IMPRESSION: 1. Satisfactory positioning of the endotracheal tube. 2. Density dependent predominant bilateral airspace opacities with air bronchograms are suggestive of aspiration. 3. No pneumothorax. ACT 112: Negative or not required by law. Electronically signed by: Jos Marin M.D. 03/25/2022 7:34 AM
--- NOTE | 2022-03-25 07:43 | Magnetic Resonance Report ---
MR brain wo/w con HISTORY: 22 years-old Male Encephalitis? Acutely altered mental status with seizures and respiratory failure COMPARISON: Head CT of same day TECHNIQUE: Multiplanar multisequence MRI of the brain was obtained both with and without the use of 9 cc Gadavist FINDINGS: Inserter Promotional Item localizer images demonstrate no gross extracranial abnormality. No restricted diffusion to sugg est acute or subacute infarct. Midline structures appear unremarkable. No acute intracranial hemorrha ge, midline shift, abnormal extra-axial collection, hydrocephalus or intracranial mass. Volume and si gnal of the brain parenchyma is within normal limits. No acute seizure focus identified. No evidence of mesial temporal sclerosis, moore matter heterotopia or cortical dysplasia. Cerebral venous sinuses and major arterial flow voids appear patent. Skull, orbits and soft tissues a re unremarkable. Mastoid air cells are clear. Layering secretions are noted within the oral pharyngea l airway. No abnormal enhancement. IMPRESSION: 1. No acute intracranial abnormality. 2. No evidence of mesial temporal sclerosis or abnormal enhancement. ACT 112: Negative or not required by law. The above report was generated using voice recognition software. It may contain grammatical, syntax o r spelling errors. Electronically signed by: Jos Marin M.D. 03/25/2022 7:41 AM
[2022-03-25] MEDS ORDERED: VANCOMYCIN HCL 1,000 MG in SODIUM CHLORIDE 0.9% 250 ML IV SCH (08:00)
[2022-03-25] MEDS ORDERED: STAT IV STA ×2 (08:20→18:19)
[2022-03-25] MEDS: NORMOSOL-R 1,000 ML IV SCH ×2 (08:55→16:37)
[2022-03-25] MEDS ORDERED: levETIRAcetam 500 MG in 0.9 % SODIUM CHLORIDE 100 ML IV SCH (09:00)
[2022-03-25] MEDS ORDERED: CALCIUM GLUCONATE 10% 1,000 MG in DEXTROSE 5% 50 ML IV ONE (09:00)
--- NOTE | 2022-03-25 09:07 | Critical Care Progress Note ---
Date of Service March 25, 2022 Assessment & Plan (1) Acute hypoxemic respiratory failure: Plan: CT chest with findings concerning for aspiration pneumonia and mild groundglass opacities. Patient positive for RSV and enterovirus on bio fire. Check ABG today. Low threshold for proning. Continue lung protective ventilation strategy. Discontinuing IV dexamethasone. Sputum cultures pending. Continue broad-spectrum antibiotics for possible superimposed bacterial infection. Will continue with daily spontaneous awakening trials and SBT. (2) Acute encephalopathy: Plan: Patient with likely seizure. ? Ingestion.? Withdrawal? Hypoxic encephalopathy. MRI brain unremarkable. CT head negative. Will need to consider LP. CK level, acetaminophen and salicylate level negative. Neurology consult placed. We will hold off on EEG and further antiepileptics at this time. Continue propofol and fentanyl. (3) Sepsis: Plan: Broad-spectrum antibiotics as above with vancomycin, azithromycin and ceftriaxone. Discontinue acyclovir is extremely unlikely that the patient has herpes encephalitis based on MRI imaging. Blood cultures, urine cultures and sputum cultures ordered. We will consider LP. (4) Marijuana abuse: Plan: ?EVALI (5) Acute kidney injury: Plan: Possibly ischemic ATN versus nephritis given blood and protein seen in the urine. We will start gentle crystalloid infusion. Low threshold for nephrology consultation. Repeat BMP later today. We will obtain renal ultrasound. Will discontinue acyclovir as this could cause CARLEE. Plan DVT prophylaxis with heparin 5000 units twice daily. If we do not end up proning the patient, will start tube feeds. CRITICAL CARE TIME - I have personally spent 47 minutes of critical care time in the direct management of this patient. This is a life/limb threatening event. This includes time spent evaluating patient, direct bedside care, chart review, placing orders, interpretation of diagnostic studies, discussion with consultants, patient, and family members, as well as other required patient management activities. This time is exclusive of all separately billable procedures, and teaching time and separate from and in addition to any other critical care service time. Admission and Anticipated Discharge Date Admission Date: March 24, 2022 Subjective We trialed the sedation vacation and a spontaneous breathing trial. Patient became extremely combative and at 1 point almost pulled off his endotracheal tube. He has thick pink-tinged secretions on occasion. He desaturated significantly during the spontaneous breathing trial to the low 80s and became tachypneic. He was able to follow commands intermittently like squeezing my fingers and wiggling his toes. He is currently on 14 of PEEP and 55% FiO2. He is on high doses of propofol and fentanyl. Review of Systems Review of Systems: Unobtainable due to cognitive status and Unobtainable due to endotracheal tube Physical Exam Physical Exam: Constitutional: Patient appears to be of their stated age. Intubated. Eyes: Pupils are equal round and reactive to light. Conjunctivae are normal. Anicteric sclera. Ears nose, mouth and throat: Intubated with a 7-1/2 tube. Neck: Trachea is midline. Visual inspection is normal. Respiratory: Coarse breath sounds bilaterally. Cardiovascular: Regular rate and rhythm. No murmurs. No edema. Gastrointestinal: Normal bowel sounds, soft, nontender and nondistended. No hepatosplenomegaly noted. Musculoskeletal: No cyanosis. Patient is able to move all extremities. Strength is 5 out of 5 in the upper and lower extremities. Skin: No rashes, warm dry and intact. Neurologic: No obvious focal neurological deficits seen. Psychiatric: Intubated and sedated. Results & Data Results & Data ([facility]) Vital Signs (Past 12 Hours) Vital Signs Temp Pulse Resp BP Pulse Ox O2 Del Method FiO2 03/25/22 08:07 98 H 20 89 L 75 03/25/22 07:30 37.0 C 79 18 106/60 94 Mechanical Vent 0.4 03/25/22 07:15 37.0 C 79 18 95 03/25/22 07:00 37.0 C 77 18 03/25/22 03:10 81 18 98 40 03/25/22 05:00 36.9 C 80 18 03/25/22 04:56 36.9 C 83 18 98 03/25/22 04:56 109/54 L 03/25/22 04:00 37.1 C 85 18 103/48 L 03/25/22 03:00 37.3 C 79 16 113/61 03/25/22 02:00 37.5 C 82 18 113/61 03/25/22 01:00 37.4 C 80 18 111/64 03/25/22 00:00 37.3 C 83 18 113/62 03/24/22 23:00 37.5 C 87 18 112/54 L 03/25/22 04:00 40 03/25/22 00:00 40 12/10/22 00:00 87 03/24/22 22:00 Mechanical Vent 03/24/22 22:50 37.5 C 86 18 98 03/24/22 22:40 37.6 C H 87 18 98 03/24/22 22:30 37.7 C H 85 18 03/24/22 22:20 82 18 99 03/24/22 22:10 85 18 99 03/24/22 22:00 86 19 100 03/24/22 21:54 90 13 100 03/24/22 22:20 82 18 99 40 Coding Level of Care Code Critical Care 1st 30-74 mins Diagnoses Acute hypoxemic respiratory failure J96.01 Acute encephalopathy G93.40 Sepsis A41.9 Marijuana abuse F12.10 Acute kidney injury N17.9 Time Spent (min) 47
--- NOTE | 2022-03-25 09:22 | Neurology Consultation ---
Date of Consultation March 25, 2022 Assessment & Plan (1) Seizure: (2) Acute encephalopathy: (3) Acute hypoxemic respiratory failure: (4) Sepsis: Plan patient had new onset seizures March 24 of uncertain etiology, but likely secondary to infection/sepsis. The patient had a positive marijuana test ( and the patient's mother states that he gets medical marijuana not marijuana "off the street"). Unfortunately, I cannot perform a neurologic examination because of the heavy sedation and intubation. He has been agitated with an acute cephalopathy and has an acute hypoxemic respiratory failure. Other considerations would be toxin exposure versus withdrawal syndrome Recommendations: 1. Consider LP to evaluate for infection. 2. hold on EEG for now but may consider in the future depending on his clinical course. 3. I will follow and hopefully I can do a more complete neuro exam once his sedation has been lowered. Overall, I spent 60 minutes with this case including review of records, review of MRI films, direct evaluation the patient at bedside, and discussion of the case with the patient's mother via telephone, and the RN and Dr. Coppola at bedside, including differential diagnosis and treatment options. History of Present Illness Reason for Consultation: Patient is a 22-year-old, who I was asked to see at the request of NAIF Simmons, for neurologic consultation regarding new onset seizures and acute encephalopathy Requesting Physician: NAIF Simmons Attending Physician: Matheus Xiong MD History of Present Illness patient is a 22-year-old student who came to the emergency room March 24 after having witnessed seizure activity in a parked car by his roommate. By the time EMS arrived at the scene he was not seizing and seemed postictal. There was history that the patient was having "panic attacks" and being somewhat abnormal with his behavior that day. I spoke to the patient's mother, Ulises Self, who as to the history. 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 Although he occasionally has wine and alcohol according to the patient's mother he is not a heavy drinker. She also does not believe he uses any tobacco products. He has never had any history of seizures or major illnesses or head trauma as an infant, child, or teen. He has no history of medical problems or surgeries. The only medicine he might have been taking was Accutane in the past for acne. He arrived at the emergency room at 1:16 p.m. on March 24 with temperature of 36.6, pulse 105, respiratory rate 28, blood pressure 118/62 and O2 satura tion 95%. He had a witnessed generalized tonic-clonic seizure in the emergency room and was given Ativan. following the seizure activity the patient was very confused and combative. He he became extremely agitated despite a total of 8 mg of Ativan and was given ketamine and Benadryl. Finally, it was decided to intubate the patient because of his agitated confusion. Prior to this he had no focal findings on exam , and he did have the ability to follow commands. Temperature was elevated after admission between 1800 and 2300 Hours on March 24. Maximum was 37.9. Today patient has not been febrile. Chest x-ray was unremarkable and a CT scan of the head was unremarkable. CT scan of the chest showed changes consistent with probable aspiration. An MRI of the brain, with and without contrast, was unremarkable with no lesions or evidence of inflammation or encephalitis. I reviewed these films. The patient's initial white count was elevated at 12.9 with elevated neutrophils. Today the white count has improved. Lactate was elevated at 16 and prolactin was elevated at 21. The rest of the Chem profile was unremarkable. Urinalysis was unremarkable and tox screen was positive for marijuana only. Apparently the patient was taken off sedation around 7 o'clock this morning. He could follow commands and seemed to have a symmetrical examination without obvious deficits but was very agitated. He then had coughing fits bringing up thick sputum. He was then put back on sedation. When I arrived to see him at 9:00 a.m. he was on a considerable amount of propofol and fentanyl sedation. Allergies Allergy/AdvReac Type Severity Reaction Status Date / Time No Known Allergies Allergy Verified 03/24/22 15:13 Home Medications Medication Instructions Recorded Confirmed Type No Known Home Medications 03/24/22 03/24/22 History Patient History Medical History Acute encephalopathy Acute hypoxemic respiratory failure Acute kidney injury Lumbar pain Marijuana abuse Sepsis Social History (Updated 03/25/22 @ 09:42 by Gilmar Ramos MD) Smoking Status: Unknown if ever smoked Second Hand Exposure: No; Do You Dip or Chew Tobacco: No; Tobacco Cessation Education Requested by Patient: No Hx Alcohol Use: Yes Alcohol type: hard liquor Alcohol Intake Frequency: 2-3 x/Week Alcohol Intake Frequency Comment: 1-2 drinks/week Hx Substance Use: No Preferred Language: Wallisian Communication Ability: Unable Gastroenterology Teacher Required: No Beliefs That Will Affect Care: None Current Living Situation: Other current occupational status: student 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 The patient was on large dose propofol and fentanyl and was heavily sedated. Therefore, no neurologic examination could be performed. He was afebrile and blood pressure was 106/60 with a pulse of 89 and regular. Temperature was 37.0 an O2 saturation was 90% on mechanical ventilation Results & Data ([facility]) Vital Signs (Past 12 Hours) Vital Signs Temp Pulse Resp BP Pulse Ox O2 Del Method FiO2 03/25/22 08:07 98 H 20 89 L 75 03/25/22 07:30 37.0 C 79 18 106/60 94 Mechanical Vent 0.4 03/25/22 07:15 37.0 C 79 18 95 03/25/22 07:00 37.0 C 77 18 03/25/22 03:10 81 18 98 40 03/25/22 05:00 36.9 C 80 18 03/25/22 04:56 36.9 C 83 18 98 03/25/22 04:56 109/54 L 03/25/22 04:00 37.1 C 85 18 103/48 L 03/25/22 03:00 37.3 C 79 16 113/61 03/25/22 02:00 37.5 C 82 18 113/61 03/25/22 01:00 37.4 C 80 18 111/64 03/25/22 00:00 37.3 C 83 18 113/62 03/24/22 23:00 37.5 C 87 18 112/54 L 03/25/22 04:00 40 03/25/22 00:00 40 03/25/22 00:00 87 03/24/22 22:00 Mechanical Vent 03/24/22 22:50 37.5 C 86 18 98 03/24/22 22:40 37.6 C H 87 18 98 03/24/22 22:30 37.7 C H 85 18 03/24/22 22:20 82 18 99 03/24/22 22:10 85 18 99 03/24/22 22:00 86 19 100 03/24/22 21:54 90 13 100 03/24/22 22:20 82 18 99 40 PG Care Time/CCT Total # of Minutes Spent Total Time Spent with Patient: Total time spent is greater than 50% in coordination of care (as documented) at patient's floor/unit and/or counseling patient: Coding Level of Care Code 49977 Inpt Consult Level 5 Diagnoses Seizure R56.9 Acute encephalopathy G93.40 Acute hypoxemic respiratory failure J96.01 Sepsis A41.9 Time Spent (min) 60
--- NOTE | 2022-03-25 09:25 | XRay Report ---
XR chest 1V portable CLINICAL HISTORY: Sudden hypoxia. COMPARISON STUDY: Chest CT March 24, 2022 and chest radiograph performed earlier today. FINDINGS: Tip of endotracheal tube is 4.4 cm above the trever. There is no pneumothorax or pleural ef fusion. Bilateral lower lobe consolidation persists. Cardiac size is normal. Mediastinal contours are normal. There is no evidence for pulmonary edema. IMPRESSION: 1. Satisfactory positioning of the endotracheal tube. 2. Persistent bibasilar consolidation suggestive of pneumonia or aspiration pneumonitis. ACT 112: Negative or not required by law. Electronically signed by: Tyler Shepard M.D. 03/25/2022 9:24 AM
[2022-03-25] MEDS: ALBUT/IPRATROP 3MG/0.5MG NEB 3 ML VIAL NEB SCH ×4 (10:57→23:23)
[2022-03-25 11:09] LABS: iSTAT Allen Test Pass; iSTAT Art Bld Gas pCO2 Correct 41 mmHg (35-46); iSTAT Art Bld Gas pH Corrected 7.325 (7.35-7.45); iSTAT Arterial Blood Gas HCO3 21 meg/L (19-24); iSTAT Arterial Blood Gas pCO2 40 mmHg (35-46); iSTAT Arterial Blood Gas pH 7.33 (7.35-7.45); iSTAT Arterial Blood Gas pO2 104 mmHg (80-95); iSTAT Arterial Blood Gas pO2 C 105; iSTAT Carbon Dioxide 22 mmol/L (24-31); iSTAT FiO2 45 %; iSTAT Hematocrit 34 % (42-52); iSTAT Hemoglobin 11.6 g/dl (14.0-18.0); iSTAT Potassium 4.2 mmol/L (3.3-5.0); iSTAT Site R Radial; iSTAT Sodium 142 mmol/L (135-144)
--- NOTE | 2022-03-25 11:35 | Hospitalist Progress Note ---
Date of Service March 25, 2022 Assessment & Plan (1) Seizure: Plan: -Patient was brought to the hospital after a seizure, no previous history of seizure according to his mother Observed seizure activity while in the ER, lactate elevated Patient with history of marijuana use Extreme agitation in ER required intubation and sedation U tox positive for marijuana, negative for PCP CThead did not show any acute pathology -MRI brain essentially wnl, no suggestion of encephalitis, no meningeal enhancement Empirically covered with acyclovir/azithromycin/ceftriaxone/vancomycin/dexamethasone -May need Lumbar Puncture (2) Acute hypoxemic respiratory failure: Plan: Acute hypoxic respiratory failure, chest x ray suggest Aspiration pneumonia Currently Intubated, ventilated and sedated -Wean as tolerated -Appreciate Critical care (3) Delirium: Plan continue hospitalization DVT prophylaxis: SCDs CODE STATUS: Full code Admission and Anticipated Discharge Date Admission Date: March 24, 2022 Subjective patient seen and examined, intubated, sedated and ventilated, mother by the bedside Review of Systems Review of Systems: unable to obtain Physical Exam Physical Exam: The patient is intubated, ventilated and sedated HEENT--unable to fully evaluate Neck--supple. No JVD. No bruits. Thyroid normal, trachea midline, no adenopathy. Heart--normal S1 and S2. No murmurs, rubs or gallops. Lungs--clear bilaterally, no respiratory distress, no accessory muscle use. Abdomen--normal bowel sounds and soft. Mild epigastric and left sided abdominal pain Extremities--no cyanosis or clubbing. No edema. Dermatologic--normal skin turgor, normal color, no abnormal lymph nodes, no rash. Neurologic--intubated , sedated Rheumatologic--normal range of motion. Psychiatric--unable to assess Results & Data Results & Data ([facility]) Vital Signs (Past 12 Hours) Vital Signs Temp Pulse Resp BP Pulse Ox O2 Del Method FiO2 03/25/22 11:14 88 16 95 40 03/25/22 09:45 98.8 F 80 16 95 03/25/22 09:30 99.0 F 81 16 03/25/22 09:15 99.0 F 79 16 92 03/25/22 09:00 99.0 F 84 16 90 03/25/22 08:45 99.0 F 85 16 90 03/25/22 08:34 105/55 L 03/25/22 08:34 99.0 F 88 14 87 L 03/25/22 08:30 99.0 F 90 16 03/25/22 08:24 99.0 F 94 H 18 90 03/25/22 08:24 110/54 L 03/25/22 08:15 98.8 F 96 H 18 89 L 03/25/22 08:00 98.8 F 99 H 16 88 L 03/25/22 08:00 122/70 03/25/22 07:45 98.8 F 81 18 97 03/25/22 08:03 Mechanical Vent 03/25/22 08:00 40 03/25/22 08:07 98 H 20 89 L 75 03/25/22 07:30 98.6 F 79 18 106/60 94 Mechanical Vent 0.4 03/25/22 07:15 98.6 F 79 18 95 03/25/22 07:00 98.6 F 77 18 03/25/22 03:10 81 18 98 40 03/25/22 05:00 98.4 F 80 18 03/25/22 04:56 98.4 F 83 18 98 03/25/22 04:56 109/54 L 03/25/22 04:00 98.8 F 85 18 103/48 L 03/25/22 03:00 99.1 F 79 16 113/61 03/25/22 02:00 99.5 F 82 18 113/61 03/25/22 01:00 99.3 F 80 18 111/64 03/25/22 00:00 99.1 F 83 18 113/62 03/25/22 04:00 40 03/25/22 00:00 40 03/25/22 00:00 87 PG Care Time/CCT Total # of Minutes Spent Total Time Spent with Patient: Total time spent is greater than 50% in coordination of care (as documented) at patient's floor/unit and/or counseling patient: Coding Level of Care Code 64531 Subseq Hosp Care Lvl 2 Diagnoses Seizure R56.9 Acute hypoxemic respiratory failure J96.01 Delirium R41.0 Time Spent (min) 35
[2022-03-25] MEDS: fentaNYL citrate 2,500 MCG/250 ML BAG IV SCH (12:03)
--- NOTE | 2022-03-25 12:11 | Ultrasound Report ---
RENAL ULTRASOUND CLINICAL HISTORY: Acute kidney injury. COMPARISON STUDY: None. TECHNIQUE: Sonography of the kidneys and the urinary bladder was performed. FINDINGS: The right kidney measures 10.9 cm in length and the left measures 11.6 cm. There is no hydr onephrosis. Renal echogenicity may be slightly increased. 1.5 cm right renal cyst is present. No raj l calculi are identified. A Bonner balloon within the bladder is present. Bladder is not collapsed. Th ere is possible debris within the bladder. IMPRESSION: 1. No hydronephrosis. 2. Possible debris versus artifact within the bladder. This could be correlated with urinalysis. ACT 112: Negative or not required by law. Electronically signed by: Tyler Shepard M.D. 03/25/2022 12:09 PM
[2022-03-25] MEDS ORDERED: VANCOMYCIN HCL 1,000 MG in SODIUM CHLORIDE 0.9% 250 ML IV STA (12:44)
--- NOTE | 2022-03-25 13:02 | Pharmacy Report ---
Pharmacy PK ABX Note - Date of Service March 25, 2022 - Assessment and Plan Assessment * 22 year old M receiving ceftriaxone, vancomycin, and azithromycin for treatment of sepsis 2nd PNA and/or meningitis. Currently intubated in ICU. LP being considered. * CARLEE noted with increase in SCr from 1.33 to 1.97 mg/dL. UOP remains adequate * Will stop scheduled vancomycin and dose via level * STAT random level this AM therapeutic at 16.1 mcg/mL. Will give a one-time 11 mg/kg dose of vancomycin and obtain a random level w AM labs Plan Vancomycin * 1000 mg IV x1 * Random level ordered for 03/26 w AM labs Pharmacy will continue to follow and will adjust dose/frequency as necessary. Thank you. Pharmacy has transitioned to AUC monitoring for vancomycin. AUC/LEÓN is the preferred PK/PD target and is associated with decreased risk of nephrotoxicity compared to traditional trough targets.
[2022-03-25] MEDS ORDERED: VECURONIUM BROMIDE 10 MG VIAL IV ONE (16:12)
[2022-03-25] MEDS ORDERED: VECURONIUM BROMIDE 10 MG VIAL IV STA ×2 (16:25)
[2022-03-25] MEDS ORDERED: NORMOSOL-R 500 ML IV ONE (16:32)
[2022-03-25] MEDS ORDERED: METOPROLOL TARTRATE 1 MG/ML VIAL IV STA (16:32)
[2022-03-25] MEDS ORDERED: METOPROLOL TARTRATE 1 MG/ML VIAL IV ONE (16:33)
[2022-03-25] MEDS: MIDAZOLAM HCL 1 MG/ML 2ML VIAL IV PRN ×2 (17:00→18:35)
[2022-03-25 17:15] LABS: BUN Creatinine Ratio 10.6 (10-20); Calcium 8.8 mg/dl (8.5-10.1); Est GFR (African American) 43.9 ml/min; Est GFR (Non-African American) 37.9 ml/min; Potassium 4.4 mmol/L (3.5-5.1)
[2022-03-25] MEDS ORDERED: STAT IV Infusion **Titration per Protocol STA ×3 (18:07→18:19)
[2022-03-25] MEDS ORDERED: NOREPINEPHRINE/D5W 4 MG/250 ML PLCT IV SCH (18:15)
[2022-03-25] MEDS: CISATRACURIUM BESYLATE 40 MG in DEXTROSE 5% 80 ML IV SCH ×2 (18:44→22:42)
[2022-03-25] MEDS: MIDAZOLAM HCL 125 MG/250 ML BAG IV SCH (19:30)
[2022-03-25] MEDS: ACETAMINOPHEN 325 MG TAB PO PRN (20:21)
[2022-03-25] MEDS: SODIUM CHLOR 7% 4 ML NEB NEB SCH (20:31)
[2022-03-25] MEDS: HEPARIN SOD 5,000 UNIT/0.5 ML VIAL SQ SCH (20:50)
[2022-03-25] MEDS: ARTIFICIAL TEARS OP OINT 3.5 GM TUBE OP SCH ×2 (20:51→23:05)
[2022-03-25 21:01] LABS: BUN Creatinine Ratio 12.2 (10-20); Calcium 8.2 mg/dl (8.5-10.1); Creatinine Clr Calc Pharmacy 59.6 ml/min; Est GFR (African American) 49.4 ml/min; Est GFR (Non-African American) 42.6 ml/min; Potassium 4.1 mmol/L (3.5-5.1)
[2022-03-25] MEDS ORDERED: CISATRACURIUM BOLUS FROM BAG IV ONE (21:33)
[2022-03-25] MEDS: AZITHROMYCIN 250 MG in DEXTROSE 5% 250 ML IV SCH (21:41)
[2022-03-26] MEDS ORDERED: ACETAMINOPHEN 1,000 MG/100 ML VIAL IV STA (00:06)
[2022-03-26] MEDS: NORMOSOL-R 1,000 ML IV SCH ×3 (00:53→18:26)
[2022-03-26] MEDS: CISATRACURIUM BESYLATE IV SCH ×4 (01:34→19:28)
[2022-03-26] MEDS: DEXTROSE 5% IV SCH ×4 (01:34→19:28)
[2022-03-26] MEDS: CISATRACURIUM BESYLATE 40 MG in DEXTROSE 5% 80 ML IV SCH (01:38)
[2022-03-26] MEDS: propofoL 1,000 MG/100 ML VIAL IV SCH ×11 (02:07→19:28)
[2022-03-26] MEDS: ALBUT/IPRATROP 3MG/0.5MG NEB 3 ML VIAL NEB SCH ×4 (02:24→15:52)
[2022-03-26 03:58] LABS: Calcium 7.9 mg/dl (8.5-10.1); Creatinine Clr Calc Pharmacy 69.4 ml/min; Est GFR (African American) 59.4 ml/min; Est GFR (Non-African American) 51.2 ml/min; Magnesium 2.3 mg/dl (1.7-2.4); Phosphorus 4.5 mg/dl (2.5-4.9); Potassium 4.2 mmol/L (3.5-5.1)
[2022-03-26 04:25] LABS: iSTAT Allen Test Pass; iSTAT Art Bld Gas pCO2 Correct 57 mmHg (35-46); iSTAT Art Bld Gas pH Corrected 7.236 (7.35-7.45); iSTAT Arterial Blood Gas HCO3 24 meg/L (19-24); iSTAT Arterial Blood Gas pCO2 58 mmHg (35-46); iSTAT Arterial Blood Gas pH 7.24 (7.35-7.45); iSTAT Arterial Blood Gas pO2 71 mmHg (80-95); iSTAT Arterial Blood Gas pO2 C 71; iSTAT Carbon Dioxide 26 mmol/L (24-31); iSTAT FiO2 70 %; iSTAT Hematocrit 40 % (42-52); iSTAT Hemoglobin 13.6 g/dl (14.0-18.0); iSTAT Potassium 4.1 mmol/L (3.3-5.0); iSTAT Site R Radial; iSTAT Sodium 140 mmol/L (135-144)
[2022-03-26] MEDS: ARTIFICIAL TEARS OP OINT 3.5 GM TUBE OP SCH ×6 (04:53→21:41)
[2022-03-26 05:08] LABS: Basophils # (auto) 0.02 K/uL (0-0.2); Basophils % (auto) 0.1 %; Hematocrit (blood only) 40.2 % (40.1-51.0); Hemoglobin 13.1 g/dl (14.0-18.0); Immature Granulocytes % (auto) 0.5 %; Lymphocytes # (auto) 1.03 K/uL (1.2-3.4); Lymphocytes % (auto) 5.3 %; Mean Corpuscular Hemoglobin 32.2 pg (25.0-34.0); Mean Corpuscular Hgb Conc 32.6 g/dL (32.0-36.0); Mean Corpuscular Volume 98.8 fL (80.0-100.0); Mean Platelet Volume 10.4 fL (9.4-12.4); Monocytes % (auto) 5.1 %; Neutrophils # (auto) 17.42 K/uL (1.4-6.5); Platelet Count 219 K/uL (130-400); RDW Standard Deviation 47.1 fL (36.4-46.3); Red Blood Count 4.07 M/uL (4.63-6.08); White Blood Count 19.57 K/ul (4.8-10.8)
[2022-03-26] MEDS: fentaNYL citrate 2,500 MCG/250 ML BAG IV SCH (06:12)
[2022-03-26] MEDS ORDERED: VANCOMYCIN LEVEL ONE (07:30)
[2022-03-26] MEDS: ICU Protocol for HYPERglycemia SCH ×3 (07:32→14:11)
[2022-03-26] MEDS: cefTRIAXone SODIUM 2,000 MG in DEXTROSE 5% 50 ML IV SCH (07:52)
[2022-03-26] MEDS: HEPARIN SOD 5,000 UNIT/0.5 ML VIAL SQ SCH ×2 (07:53→19:29)
--- NOTE | 2022-03-26 07:56 | XRay Report ---
XR chest 1V portable HISTORY: 22 years-old Male evaluate OGT placement and ETT/lung fileds status post placement of an en dotracheal and enteric tube COMPARISON: Chest radiograph of same day at 9:11 AM TECHNIQUE: Semierect AP view of the chest FINDINGS: The cardiomediastinal and hilar silhouettes are unchanged. Layering pleural effusions with progressiv e bibasilar consolidation. Pulmonary vascular congestion suggested. No pneumothorax. Endotracheal tub e overlies the midline, 4.8 cm superior to the trever. Enteric tube distal tip projected over the dis bryn stomach versus proximal duodenum. Bones appear grossly intact. IMPRESSION: 1. Endotracheal and enteric tube placement as above. 2. Layering pleural effusions with progressively worsened bibasilar opacities. 3. No pneumothorax. ACT 112: Negative or not required by law. The above report was generated using voice recognition software. It may contain grammatical, syntax o r spelling errors. Electronically signed by: Jos Marin M.D. 03/26/2022 7:55 AM
[2022-03-26] MEDS: SODIUM CHLOR 7% 4 ML NEB NEB SCH ×2 (08:14→20:47)
[2022-03-26] MEDS ORDERED: VANCOMYCIN HCL 1,000 MG in SODIUM CHLORIDE 0.9% 250 ML IV STA (09:23)
[2022-03-26] MEDS ORDERED: MEROPENEM 2,000 MG in 0.9 % SODIUM CHLORIDE 58 ML IV SCH (10:00)
--- NOTE | 2022-03-26 10:15 | Pharmacy Report ---
Pharmacy PK ABX Note - Date of Service March 26, 2022 - Assessment and Plan Assessment * 22 year old M receiving ceftriaxone, vancomycin, and azithromycin for treatment of sepsis 2nd PNA and/or meningitis. Currently intubated in ICU. LP being considered. * CARLEE noted with increase in SCr from 1.33 to 1.97 mg/dL. UOP remains adequate * Will stop scheduled vancomycin and dose via level * STAT random level this AM therapeutic at 16.1 mcg/mL. Will give a one-time 11 mg/kg dose of vancomycin and obtain a random level w AM labs Plan Vancomycin * 1000 mg IV x1 * Random level ordered for 03/26 w AM labs Pharmacy will continue to follow and will adjust dose/frequency as necessary. Thank you. Pharmacy has transitioned to AUC monitoring for vancomycin. AUC/LEÓN is the preferred PK/PD target and is associated with decreased risk of nephrotoxicity compared to traditional trough targets.
[2022-03-26] MEDS ORDERED: POLYETHYLENE (MIRALAX) 17 GM PACK PO PRN (10:16)
--- NOTE | 2022-03-26 10:23 | Critical Care Progress Note ---
Date of Service March 26, 2022 Assessment & Plan (1) ARDS (adult respiratory distress syndrome): Plan: Patient with ARDS essentially secondary to RSV and aspiration pneumonitis. We will transition antibiotics to cefepime and Flagyl. Patient appears to have severe ARDS. We will likely proceed with proning today. Continue lung protective ventilation strategy and neuromuscular blockade. Allow for permissive hypercapnia with a pH of 7.25 or greater. Sputum cultures pending. (2) Acute hypoxemic respiratory failure: Plan: See comments above. (3) Acute encephalopathy: Plan: Patient with likely seizure. ? Ingestion.? Withdrawal? Hypoxic encephalopathy. MRI brain unremarkable. CT head negative. Doubtful of meningitis as the patient does follow commands but becomes very combative when sedation is weaned. Neurology consult placed. We will hold off on EEG and further antiepileptics at this time. Continue propofol and fentanyl. (4) Sepsis: Plan: Secondary to RSV and aspiration pneumonia. We will transition antibiotics to cefepime and Flagyl. MRSA screen was negative and will DC vancomycin. Doubtful of meningitis as noted above. (5) Marijuana abuse: Plan: ?EVALI (6) Acute kidney injury: Plan: Creatinine improved, but still elevated. Urine output appears adequate. We will continue with gentle hydration. We will adjust nephrotoxic medications. If creatinine rises again, will need to consider transfer to tertiary center for renal biopsy. SUSANNE screen, ANCA screen and anti-GBM screen pending. (7) RSV (acute bronchiolitis due to respiratory syncytial virus): Plan: Supportive care as above. We will hold off on steroids at this time. I did give him a dose of steroids on admission. Plan DVT prophylaxis with heparin 5000 units twice daily. CRITICAL CARE TIME - I have personally spent 61 minutes of critical care time in the direct management of this patient. This is a life/limb threatening event. This includes time spent evaluating patient, direct bedside care, chart review, placing orders, interpretation of diagnostic studies, discussion with consultants, patient, and family members, as well as other required patient management activities. This time is exclusive of all separately billable procedures, and teaching time and separate from and in addition to any other critical care service time. Admission and Anticipated Discharge Date Admission Date: March 24, 2022 Subjective Patient seen and examined. Remains on propofol, fentanyl and Nimbex infusion. Review of systems unable to be obtained due to the patient's intubation status and sedation status. Physical Exam Physical Exam: Constitutional: Patient appears to be of their stated age. Intubated. Eyes: Pupils are equal round and reactive to light. Conjunctivae are normal. Anicteric sclera. Ears nose, mouth and throat: Intubated with a 7-1/2 tube. Neck: Trachea is midline. Visual inspection is normal. Respiratory: Coarse breath sounds bilaterally. Cardiovascular: Regular rate and rhythm. No murmurs. No edema. Gastrointestinal: Normal bowel sounds, soft, nontender and nondistended. No hepatosplenomegaly noted. Musculoskeletal: No cyanosis. Patient is able to move all extremities. Skin: No rashes, warm dry and intact. Neurologic: No obvious focal neurological deficits seen. Psychiatric: Intubated and sedated. Results & Data Results & Data ([facility]) Vital Signs (Past 12 Hours) Vital Signs Temp Pulse Pulse Resp BP Pulse Ox O2 Del Method 03/26/22 08:45 37.7 C H 156 H 17 94 03/26/22 08:30 37.6 C H 156 H 17 95 03/26/22 08:30 181/118 H 03/26/22 08:15 37.6 C H 115 H 20 94 03/26/22 08:00 37.6 C H 116 H 20 94 03/26/22 08:00 108/72 03/26/22 07:45 37.6 C H 116 H 20 94 03/26/22 07:30 37.6 C H 115 H 20 95 Mechanical Vent 03/26/22 07:30 101/63 03/26/22 07:15 37.5 C 116 H 20 95 03/26/22 07:00 37.5 C 115 H 20 96 03/26/22 07:00 98/64 L 03/26/22 07:30 96 H 20 95 03/26/22 08:49 Mechanical Vent 03/26/22 08:00 03/26/22 06:20 37.3 C 115 H 20 94 03/26/22 06:10 37.3 C 115 H 20 94 03/26/22 06:00 37.2 C 117 H 20 94 03/26/22 06:00 95/63 L 03/26/22 05:50 37.2 C 120 H 20 94 03/26/22 05:40 37.2 C 121 H 20 94 03/26/22 05:30 37.2 C 121 H 20 94 03/26/22 05:30 103/68 03/26/22 05:20 37.1 C 120 H 20 93 03/26/22 05:10 37.1 C 121 H 20 94 03/26/22 05:00 37.1 C 120 H 20 93 03/26/22 05:00 118/79 03/26/22 04:50 37.0 C 123 H 20 93 03/26/22 04:40 37.0 C 122 H 20 93 03/26/22 04:30 37.0 C 119 H 20 94 03/26/22 04:30 119/81 03/26/22 04:20 36.9 C 125 H 20 93 03/26/22 04:10 36.9 C 123 H 20 96 03/26/22 02:30 120 H 16 94 03/26/22 04:12 20 03/26/22 04:00 36.9 C 124 H 16 94 03/26/22 04:00 106/71 03/26/22 03:50 36.9 C 125 H 16 94 03/26/22 03:40 36.9 C 125 H 16 94 03/26/22 03:30 36.9 C 126 H 16 94 03/26/22 03:30 112/72 03/26/22 03:20 36.9 C 127 H 16 93 03/26/22 03:10 36.9 C 127 H 16 95 03/26/22 03:00 36.9 C 127 H 16 96 03/26/22 03:00 119/70 03/26/22 02:50 36.9 C 126 H 16 96 03/26/22 02:45 37.0 C 128 H 16 96 03/26/22 02:45 113/73 03/26/22 02:40 37.0 C 124 H 16 95 03/26/22 02:30 37.1 C 119 H 16 96 03/26/22 02:20 37.1 C 121 H 13 95 03/26/22 02:10 37.2 C 121 H 16 94 03/26/22 02:00 37.2 C 121 H 16 94 03/26/22 02:00 113/80 03/26/22 01:50 37.3 C 122 H 14 94 03/26/22 01:40 37.4 C 120 H 16 93 03/26/22 01:30 37.4 C 123 H 16 93 03/26/22 01:30 122/66 03/26/22 01:20 37.5 C 126 H 14 93 03/26/22 01:10 37.6 C H 129 H 16 94 03/26/22 01:00 37.7 C H 127 H 16 94 03/26/22 01:00 136/58 L 03/26/22 00:50 37.8 C H 131 H 14 93 03/26/22 00:40 37.8 C H 134 H 16 94 03/26/22 00:30 37.9 C H 135 H 16 94 03/26/22 00:30 112/66 03/26/22 00:20 38.0 C H 138 H 13 93 03/26/22 04:00 03/25/22 23:23 129 H 16 93 Mechanical Vent 03/25/22 23:15 129 H 16 93 03/26/22 00:10 38.1 C H 139 H 16 94 03/26/22 00:00 38.1 C H 143 H 16 93 03/26/22 00:00 117/61 03/25/22 23:50 38.2 C H 144 H 13 93 03/25/22 23:40 38.2 C H 144 H 13 93 03/25/22 23:30 38.3 C H 137 H 16 94 03/25/22 23:30 124/75 03/25/22 23:20 38.4 C H 130 H 16 93 03/25/22 23:10 38.5 C H 130 H 16 92 03/25/22 23:00 38.6 C H 132 H 16 90 03/25/22 23:00 127/58 L 03/25/22 22:50 38.6 C H 133 H 16 93 03/25/22 22:40 38.7 C H 132 H 16 89 L 03/25/22 22:30 38.7 C H 135 H 16 90 03/25/22 22:30 110/58 L 03/25/22 22:23 38.7 C H 135 H 16 91 03/25/22 22:23 113/57 L 03/25/22 22:20 38.6 C H 136 H 16 93 03/26/22 00:00 03/26/22 00:00 149 H FiO2 03/26/22 08:45 03/26/22 08:30 03/26/22 08:30 03/26/22 08:15 03/26/22 08:00 03/26/22 08:00 03/26/22 07:45 03/26/22 07:30 0.55 03/26/22 07:30 03/26/22 07:15 03/26/22 07:00 03/26/22 07:00 03/26/22 07:30 60 03/26/22 08:49 03/26/22 08:00 0.55 03/26/22 06:20 03/26/22 06:10 03/26/22 06:00 03/26/22 06:00 03/26/22 05:50 03/26/22 05:40 03/26/22 05:30 03/26/22 05:30 03/26/22 05:20 03/26/22 05:10 03/26/22 05:00 03/26/22 05:00 03/26/22 04:50 03/26/22 04:40 03/26/22 04:30 03/26/22 04:30 03/26/22 04:20 03/26/22 04:10 03/26/22 02:30 70 03/26/22 04:12 60 03/26/22 04:00 03/26/22 04:00 03/26/22 03:50 03/26/22 03:40 03/26/22 03:30 03/26/22 03:30 03/26/22 03:20 03/26/22 03:10 03/26/22 03:00 03/26/22 03:00 03/26/22 02:50 03/26/22 02:45 03/26/22 02:45 03/26/22 02:40 03/26/22 02:30 03/26/22 02:20 03/26/22 02:10 03/26/22 02:00 03/26/22 02:00 03/26/22 01:50 03/26/22 01:40 03/26/22 01:30 03/26/22 01:30 03/26/22 01:20 03/26/22 01:10 03/26/22 01:00 03/26/22 01:00 03/26/22 00:50 03/26/22 00:40 03/26/22 00:30 03/26/22 00:30 03/26/22 00:20 03/26/22 04:00 60 03/25/22 23:23 80 03/25/22 23:15 80 03/26/22 00:10 03/26/22 00:00 03/26/22 00:00 03/25/22 23:50 03/25/22 23:40 03/25/22 23:30 03/25/22 23:30 03/25/22 23:20 03/25/22 23:10 03/25/22 23:00 03/25/22 23:00 03/25/22 22:50 03/25/22 22:40 03/25/22 22:30 03/25/22 22:30 03/25/22 22:23 03/25/22 22:23 03/25/22 22:20 03/26/22 00:00 80 03/26/22 00:00 Coding Level of Care Code Critical Care 1st 30-74 mins Diagnoses ARDS (adult respiratory distress syndrome) J80 Acute hypoxemic respiratory failure J96.01 Acute encephalopathy G93.40 Sepsis A41.9 Marijuana abuse F12.10 Acute kidney injury N17.9 RSV (acute bronchiolitis due to respiratory syncytial virus) J21.0 Time Spent (min) 61
--- NOTE | 2022-03-26 10:36 | XRay Report ---
XR chest 1V portable HISTORY: 22 years-old Male follow up aspiration acute respiratory failure COMPARISON: 03/25/2022 TECHNIQUE: AP view of the chest FINDINGS: The cardiomediastinal and hilar silhouettes are unchanged. Layering pleural effusions with unchanged bibasilar consolidation. Pulmonary vascular congestion suggested. No pneumothorax. Endotracheal tube overlies the midline, 4.4 cm superior to the trever. Enteric tube distal tip projected over the dista l stomach versus proximal duodenum. Bones appear grossly intact. IMPRESSION: 1. Stable endotracheal and enteric tubes. 2. Unchanged layering pleural effusions with bibasilar consolidation. ACT 112: Negative or not required by law. The above report was generated using voice recognition software. It may contain grammatical, syntax o r spelling errors. Electronically signed by: Jos Marin M.D. 03/26/2022 10:33 AM
--- NOTE | 2022-03-26 10:44 | Hospitalist Progress Note ---
Date of Service March 26, 2022 Assessment & Plan (1) Seizure: Plan: -Patient was brought to the hospital after a seizure, no previous history of seizure according to his mother Observed seizure activity while in the ER,initial lactate elevated Patient with history of marijuana use Extreme agitation in ER required intubation and sedation U tox positive for marijuana, negative for PCP CThead did not show any acute pathology -MRI brain essentially wnl, no suggestion of encephalitis, no meningeal enhancement Initially Empirically covered with acyclovir/azithromycin/ceftriaxone/vancomycin/dexamethasone -Acyclovir has been discontinued -Patient still intubated , sedated and ventilated -May need Lumbar Puncture (2) Acute hypoxemic respiratory failure: Plan: Acute hypoxic respiratory failure, chest x ray suggest Aspiration pneumonia Currently Intubated, ventilated and sedated -Suggest to broaden antibiotics on account of suspected aspiration PNA -Wean as tolerated -Appreciate Critical care (3) HTN (hypertension): Plan: Elevated Blood pressure, no diagnosis of HTN IV PRN meds for BP control (4) Aspiration pneumonia: Plan: Followin seizure X ray suggests aspiration Patient now on Cefepime, Azithromycin, Flagyl (5) Delirium: Plan continue hospitalization DVT prophylaxis: SCDs CODE STATUS: Full code Admission and Anticipated Discharge Date Admission Date: March 24, 2022 Subjective patient seen and examined, still intubated, sedated and ventilated Review of Systems Review of Systems: unable to obtain Physical Exam Physical Exam: The patient is intubated, ventilated and sedated HEENT--unable to fully evaluate Neck--supple. No JVD. No bruits. Thyroid normal, trachea midline, no adenopathy. Heart--normal S1 and S2. No murmurs, rubs or gallops. Lungs--clear bilaterally, no respiratory distress, no accessory muscle use. Abdomen--normal bowel sounds and soft. Mild epigastric and left sided abdominal pain Extremities--no cyanosis or clubbing. No edema. Dermatologic--normal skin turgor, normal color, no abnormal lymph nodes, no rash. Neurologic--intubated , sedated Rheumatologic--normal range of motion. Psychiatric--unable to assess Results & Data Results & Data ([facility]) Vital Signs (Past 12 Hours) Vital Signs Temp Pulse Pulse Resp BP Pulse Ox O2 Del Method 03/26/22 08:45 99.9 F H 156 H 17 94 03/26/22 08:30 99.7 F H 156 H 17 95 03/26/22 08:30 181/118 H 03/26/22 08:15 99.7 F H 115 H 20 94 03/26/22 08:00 99.7 F H 116 H 20 94 03/26/22 08:00 108/72 03/26/22 07:45 99.7 F H 116 H 20 94 03/26/22 07:30 99.7 F H 115 H 20 95 Mechanical Vent 03/26/22 07:30 101/63 03/26/22 07:15 99.5 F 116 H 20 95 03/26/22 07:00 99.5 F 115 H 20 96 03/26/22 07:00 98/64 L 03/26/22 07:30 96 H 20 95 03/26/22 08:49 Mechanical Vent 03/26/22 08:00 03/26/22 06:20 99.1 F 115 H 20 94 03/26/22 06:10 99.1 F 115 H 20 94 03/26/22 06:00 99.0 F 117 H 20 94 03/26/22 06:00 95/63 L 03/26/22 05:50 99.0 F 120 H 20 94 03/26/22 05:40 99.0 F 121 H 20 94 03/26/22 05:30 99.0 F 121 H 20 94 03/26/22 05:30 103/68 03/26/22 05:20 98.8 F 120 H 20 93 03/26/22 05:10 98.8 F 121 H 20 94 03/26/22 05:00 98.8 F 120 H 20 93 03/26/22 05:00 118/79 03/26/22 04:50 98.6 F 123 H 20 93 03/26/22 04:40 98.6 F 122 H 20 93 03/26/22 04:30 98.6 F 119 H 20 94 03/26/22 04:30 119/81 03/26/22 04:20 98.4 F 125 H 20 93 03/26/22 04:10 98.4 F 123 H 20 96 03/26/22 02:30 120 H 16 94 03/26/22 04:12 20 03/26/22 04:00 98.4 F 124 H 16 94 03/26/22 04:00 106/71 12/11/22 03:50 98.4 F 125 H 16 94 03/26/22 03:40 98.4 F 125 H 16 94 03/26/22 03:30 98.4 F 126 H 16 94 03/26/22 03:30 112/72 03/26/22 03:20 98.4 F 127 H 16 93 03/26/22 03:10 98.4 F 127 H 16 95 03/26/22 03:00 98.4 F 127 H 16 96 03/26/22 03:00 119/70 03/26/22 02:50 98.4 F 126 H 16 96 03/26/22 02:45 98.6 F 128 H 16 96 03/26/22 02:45 113/73 03/26/22 02:40 98.6 F 124 H 16 95 03/26/22 02:30 98.8 F 119 H 16 96 03/26/22 02:20 98.8 F 121 H 13 95 03/26/22 02:10 99.0 F 121 H 16 94 03/26/22 02:00 99.0 F 121 H 16 94 03/26/22 02:00 113/80 03/26/22 01:50 99.1 F 122 H 14 94 03/26/22 01:40 99.3 F 120 H 16 93 03/26/22 01:30 99.3 F 123 H 16 93 03/26/22 01:30 122/66 03/26/22 01:20 99.5 F 126 H 14 93 03/26/22 01:10 99.7 F H 129 H 16 94 03/26/22 01:00 99.9 F H 127 H 16 94 03/26/22 01:00 136/58 L 03/26/22 00:50 100.0 F H 131 H 14 93 03/26/22 00:40 100.0 F H 134 H 16 94 03/26/22 00:30 100.2 F H 135 H 16 94 03/26/22 00:30 112/66 03/26/22 00:20 100.4 F H 138 H 13 93 03/26/22 04:00 03/25/22 23:23 129 H 16 93 Mechanical Vent 03/25/22 23:15 129 H 16 93 03/26/22 00:10 100.6 F H 139 H 16 94 03/26/22 00:00 100.6 F H 143 H 16 93 03/26/22 00:00 117/61 03/25/22 23:50 100.8 F H 144 H 13 93 03/25/22 23:40 100.8 F H 144 H 13 93 03/25/22 23:30 100.9 F H 137 H 16 94 03/25/22 23:30 124/75 03/25/22 23:20 101.1 F H 130 H 16 93 03/25/22 23:10 101.3 F H 130 H 16 92 03/25/22 23:00 101.5 F H 132 H 16 90 03/25/22 23:00 127/58 L 03/25/22 22:50 101.5 F H 133 H 16 93 03/25/22 22:40 101.7 F H 132 H 16 89 L 03/26/22 00:00 03/26/22 00:00 149 H FiO2 03/26/22 08:45 03/26/22 08:30 03/26/22 08:30 03/26/22 08:15 03/26/22 08:00 03/26/22 08:00 03/26/22 07:45 03/26/22 07:30 0.55 03/26/22 07:30 03/26/22 07:15 03/26/22 07:00 03/26/22 07:00 03/26/22 07:30 60 03/26/22 08:49 03/26/22 08:00 0.55 03/26/22 06:20 03/26/22 06:10 03/26/22 06:00 03/26/22 06:00 03/26/22 05:50 03/26/22 05:40 03/26/22 05:30 03/26/22 05:30 03/26/22 05:20 03/26/22 05:10 03/26/22 05:00 03/26/22 05:00 03/26/22 04:50 03/26/22 04:40 03/26/22 04:30 03/26/22 04:30 03/26/22 04:20 03/26/22 04:10 03/26/22 02:30 70 03/26/22 04:12 60 03/26/22 04:00 03/26/22 04:00 03/26/22 03:50 03/26/22 03:40 03/26/22 03:30 03/26/22 03:30 03/26/22 03:20 03/26/22 03:10 03/26/22 03:00 03/26/22 03:00 03/26/22 02:50 03/26/22 02:45 03/26/22 02:45 03/26/22 02:40 03/26/22 02:30 03/26/22 02:20 03/26/22 02:10 03/26/22 02:00 03/26/22 02:00 03/26/22 01:50 03/26/22 01:40 03/26/22 01:30 03/26/22 01:30 03/26/22 01:20 03/26/22 01:10 03/26/22 01:00 03/26/22 01:00 03/26/22 00:50 03/26/22 00:40 03/26/22 00:30 03/26/22 00:30 03/26/22 00:20 03/26/22 04:00 60 03/25/22 23:23 80 03/25/22 23:15 80 03/26/22 00:10 03/26/22 00:00 03/26/22 00:00 03/25/22 23:50 03/25/22 23:40 03/25/22 23:30 03/25/22 23:30 03/25/22 23:20 03/25/22 23:10 03/25/22 23:00 03/25/22 23:00 03/25/22 22:50 03/25/22 22:40 03/26/22 00:00 80 03/26/22 00:00 PG Care Time/CCT Total # of Minutes Spent Total Time Spent with Patient: Total time spent is greater than 50% in coordination of care (as documented) at patient's floor/unit and/or counseling patient: Coding Level of Care Code 31634 Subseq Hosp Care Lvl 2 Diagnoses Seizure R56.9 Acute hypoxemic respiratory failure J96.01 HTN (hypertension) I10 Aspiration pneumonia J69.0 Delirium R41.0 Time Spent (min) 35
[2022-03-26 10:52] LABS: BUN Creatinine Ratio 11.4 (10-20); Calcium 7.9 mg/dl (8.5-10.1); Creatinine Clr Calc Pharmacy 76.2 ml/min; Est GFR (African American) 66.8 ml/min; Est GFR (Non-African American) 57.6 ml/min; Potassium 4.1 mmol/L (3.5-5.1)
[2022-03-26] MEDS: CEFEPIME 2,000 MG in SYRINGE 0 ML IV SCH ×2 (11:03→17:33)
[2022-03-26] MEDS: DOCUSATE SODIUM/SENNA 50/8.6MG TAB PO SCH (11:09)
[2022-03-26] MEDS: metroNIDAZOLE 500 MG/100 ML BAG IV SCH ×2 (11:12→17:38)
[2022-03-26] MEDS ORDERED: LACTATED RINGER'S 500 ML IV ONE (12:52)
[2022-03-26] MEDS ORDERED: ACETAMINOPHEN 1,000 MG/100 ML VIAL IV PRN (13:35)
[2022-03-26] MEDS: ACETAMINOPHEN 1,000 MG/100 ML VIAL IV PRN ×2 (13:57→21:40)
--- NOTE | 2022-03-26 13:59 | Procedure Note ---
Supervising Physician Co-Signing Physician Notes PREOPERATIVE DIAGNOSIS: Aspiration pneumonia POSTOPERATIVE DIAGNOSIS: Aspiration PROCEDURE PERFORMED: Flexible fiberoptic bronchoscopy with bronchial washings from the right lower lobe COMPLICATIONS: None. INDICATION: Airway clearance and evaluation for infection PROCEDURE: Informed consent was taken from patient's surrogate, mother. She understand the risks and benefits of the procedure and wished to proceed. Patient was on the ventilator with continuous sedation running. Bronchoscope was inserted via the endotracheal tube. Endotracheal tube appeared to be appropriately placed above the trever. Trever was sharp. Bilateral tracheobronchial tree inspection was performed. Thick mucoid impactions were noted particular in the lower lobes bilaterally which were aspirated free. Washings were performed of the right lower lobe.. Purulent material was aspirated. Scope was ultimately withdrawn and the patient tolerated procedure well. Recommendations: Bronchial fluid sent for cultures, cytology and cell counts. [facility] [place] Procedure Codes (Charges) Pulmonary/Thoracic Procedure 1: Pulmonary and Thoracic: 45674 Dx bronchoscopy/wash
--- NOTE | 2022-03-26 15:00 | XRay Report ---
XR chest 1V portable HISTORY: 22 years-old Male post bronch status post bronchoscopy COMPARISON: Chest radiograph of same day at 10:19 AM TECHNIQUE: AP view of the chest FINDINGS: The cardiomediastinal and hilar silhouettes are unchanged. Layering pleural effusions with persistent bibasilar consolidation. Pulmonary vascular congestion suggested. No pneumothorax. Endotracheal tube overlies the midline, 4.3 cm superior to the trever. Telemetry leads are coiled over the chest. The enteric tube distal tip is projecting inferiorly outside the [id number]. Bones appear grossly inta ct. IMPRESSION: 1. Stable endotracheal and enteric tubes. 2. Persistent layering pleural effusions with bibasilar consolidation. 3. No pneumothorax identified. ACT 112: Negative or not required by law. The above report was generated using voice recognition software. It may contain grammatical, syntax o r spelling errors. Electronically signed by: Jos Marin M.D. 03/26/2022 2:58 PM
--- NOTE | 2022-03-26 15:47 | Communication Note ---
Date of Service: March 26, 2022 Patient placed in a prone position at 1545 with my supervision at bedside. Patient tolerated proning maneuver well. Decreased FiO2 from 45 to 40%. We will obtain an ABG in an hour. Prone for 16 to 20 hours. Continue to wean Nimbex as able. Coding Level of Care Code None
[2022-03-26] MEDS: MIDAZOLAM HCL 125 MG/250 ML BAG IV SCH (15:54)
[2022-03-26 16:49] LABS: Neutrophil Body Fluid Man 90 %
[2022-03-26 16:50] LABS: Fluid Mono/Macrophage 7 %; Lymphocyte Body Fluid Man 3 %
--- NOTE | 2022-03-26 17:25 | XCELERA ---
[id number]
[2022-03-26 17:38] LABS: iSTAT Allen Test Pass; iSTAT Art Bld Gas pCO2 Correct 50 mmHg (35-46); iSTAT Art Bld Gas pH Corrected 7.316 (7.35-7.45); iSTAT Arterial Blood Gas HCO3 25 meg/L (19-24); iSTAT Arterial Blood Gas pCO2 46 mmHg (35-46); iSTAT Arterial Blood Gas pH 7.34 (7.35-7.45); iSTAT Arterial Blood Gas pO2 60 mmHg (80-95); iSTAT Arterial Blood Gas pO2 C 68; iSTAT Carbon Dioxide 27 mmol/L (24-31); iSTAT FiO2 45 %; iSTAT Hematocrit 37 % (42-52); iSTAT Hemoglobin 12.6 g/dl (14.0-18.0); iSTAT Potassium 3.5 mmol/L (3.3-5.0); iSTAT Site L Radial; iSTAT Sodium 140 mmol/L (135-144)
[2022-03-26] MEDS ORDERED: IPRATROPIUM BROMIDE NEB SOLN 0.02% 2.5 ML VIAL NEB PRN (17:39)
[2022-03-26] MEDS ORDERED: LEVALBUTEROL 1.25MG/0.5ML NEB NEB PRN (17:39)
[2022-03-26] MEDS ORDERED: VANCOMYCIN HCL 1,000 MG in SODIUM CHLORIDE 0.9% 250 ML IV ONE (21:00)
[2022-03-26] MEDS: AZITHROMYCIN 250 MG in DEXTROSE 5% 250 ML IV SCH (21:39)
[2022-03-26 22:57] LABS: Marijuana Quant, GCMS Urine 186 ng/mL (<5)
[2022-03-27] MEDS: propofoL 1,000 MG/100 ML VIAL IV SCH ×9 (00:24→19:17)
[2022-03-27] MEDS: DEXTROSE 5% IV SCH ×6 (01:44→11:39)
[2022-03-27] MEDS: CISATRACURIUM BESYLATE IV SCH ×6 (01:44→11:39)
[2022-03-27] MEDS: NORMOSOL-R 1,000 ML IV SCH ×2 (01:47→09:00)
[2022-03-27] MEDS: CEFEPIME 2,000 MG in SYRINGE 0 ML IV SCH (01:53)
[2022-03-27] MEDS: metroNIDAZOLE 500 MG/100 ML BAG IV SCH (01:54)
[2022-03-27] MEDS: ARTIFICIAL TEARS OP OINT 3.5 GM TUBE OP SCH ×3 (02:47→11:09)
[2022-03-27 04:14] LABS: iSTAT Allen Test Pass; iSTAT Art Bld Gas pCO2 Correct 46 mmHg (35-46); iSTAT Art Bld Gas pH Corrected 7.369 (7.35-7.45); iSTAT Arterial Blood Gas HCO3 26 meg/L (19-24); iSTAT Arterial Blood Gas pCO2 44 mmHg (35-46); iSTAT Arterial Blood Gas pH 7.39 (7.35-7.45); iSTAT Arterial Blood Gas pO2 58 mmHg (80-95); iSTAT Arterial Blood Gas pO2 C 63; iSTAT Carbon Dioxide 27 mmol/L (24-31); iSTAT FiO2 50 %; iSTAT Hematocrit 35 % (42-52); iSTAT Hemoglobin 11.9 g/dl (14.0-18.0); iSTAT Potassium 3.5 mmol/L (3.3-5.0); iSTAT Site L Radial; iSTAT Sodium 139 mmol/L (135-144)
[2022-03-27 05:20] LABS: Basophils # (auto) 0.05 K/uL (0-0.2); Basophils % (auto) 0.5 %; Eosinophils # (auto) 0.07 K/uL (0-0.50); Eosinophils % (auto) 0.7 %; Hematocrit (blood only) 34.3 % (40.1-51.0); Hemoglobin 11.7 g/dl (14.0-18.0); Immature Granulocytes # (auto) 0.04 K/uL (0.00-0.02); Immature Granulocytes % (auto) 0.4 %; Lymphocytes # (auto) 1.29 K/uL (1.2-3.4); Lymphocytes % (auto) 12.4 %; Mean Corpuscular Hemoglobin 32.7 pg (25.0-34.0); Mean Corpuscular Hgb Conc 34.1 g/dL (32.0-36.0); Mean Corpuscular Volume 95.8 fL (80.0-100.0); Mean Platelet Volume 10.2 fL (9.4-12.4); Monocytes # (auto) 0.72 K/uL (0.24-0.82); Monocytes % (auto) 6.9 %; Neutrophils # (auto) 8.26 K/uL (1.4-6.5); Neutrophils % (auto) 79.1 %; Platelet Count 187 K/uL (130-400); RDW Coefficient of Variation 12.6 % (11.5-14.5); RDW Standard Deviation 44.5 fL (36.4-46.3); Red Blood Count 3.58 M/uL (4.63-6.08); White Blood Count 10.43 K/ul (4.8-10.8)
[2022-03-27 05:57] LABS: BUN Creatinine Ratio 11.6 (10-20); Calcium 7.9 mg/dl (8.5-10.1); Creatinine Clr Calc Pharmacy 112.9 ml/min; Est GFR (African American) 107.5 ml/min; Est GFR (Non-African American) 92.7 ml/min; Magnesium 1.9 mg/dl (1.7-2.4); Phosphorus 2.3 mg/dl (2.5-4.9); Potassium 3.5 mmol/L (3.5-5.1)
--- NOTE | 2022-03-27 06:12 | Electrocardiogram Report ---
Test Reason : Blood Pressure : / mmHG Vent. Rate : 141 BPM Atrial Rate : 141 BPM P-R Int : 142 ms QRS Dur : 076 ms QT Int : 270 ms P-R-T Axes : 068 067 059 degrees QTc Int : 413 ms Sinus tachycardia Otherwise normal ECG When compared with ECG of 24-MAR-2022 13:13, No significant change was found Confirmed by Devyn Sebastian ([id number]) on 03/27/2022 6:12:35 AM Referred By: REFERRED SELF Confirmed By:Devyn Sebastian
[2022-03-27] MEDS: fentaNYL citrate 2,500 MCG/250 ML BAG IV SCH (06:40)
[2022-03-27] MEDS: SODIUM CHLOR 7% 4 ML NEB NEB SCH ×2 (07:56→20:31)
[2022-03-27] MEDS: ALBUT/IPRATROP 3MG/0.5MG NEB 3 ML VIAL NEB PRN ×3 (07:56→16:02)
[2022-03-27] MEDS: DOCUSATE SODIUM/SENNA 50/8.6MG TAB PO SCH (08:00)
[2022-03-27] MEDS: ACETAMINOPHEN 1,000 MG/100 ML VIAL IV PRN ×2 (08:18→15:21)
--- NOTE | 2022-03-27 09:29 | Critical Care Progress Note ---
Date of Service March 27, 2022 Assessment & Plan (1) ARDS (adult respiratory distress syndrome): Plan: ICU Assessment and Plans Reason Critically Ill: 22-year-old male here with PMHx medical marijuana usage who presented with seizure and who was admitted for [facility]. Neuro - [facility] ICU: NEGATIVE Sedation: Propofol, fentanyl, midazolam, PRN ativan Analgesia: PRN tylenol Acute Encephalopathy -MRI brain unremarkable. CT head negative. -Neurology consulted, seizure 03/24 likely 2/2 infection hold EEG -lumbar puncture today, obtained 14cc clear CSF CSF studies and meningitis panel negative -he has been off acyclovir since 03/25 4am -cefepime flyagyl azithromycin discontinued, will use rocephin 2000mg q12hr -testing for HIV, lyme consent received from mom -discontinue neuromuscular blockade Cardiac - Elevated Troponin -downtrending Respiratory - ARDS -Patient with ARDS essentially secondary to RSV and aspiration pneumonitis. -sputum culture MSSA -mechanically vented and proned, will stop proning today -dc neuromuscular blockade -he has been off acyclovir since 03/25 4am -cefepime flyagyl azithromycin discontinued, will use rocephin 2g q12hr GI - -NPO -on prophylactic PPI -continue bowel regime RENAL/LYTES - CARLEE -resolved, replace lytes as needed, continue to monitor -SUSANNE screen, ANCA screen and anti-GBM screen pending. - No concerns at this time. ENDO - No concerns at this time. HEME - Stable H&H. Heparin on hold ID - Sepsis 2/2 MSSA pneumonia -cefepime Flagyl azithromycin discontinued, will use rocephin 2g q12hr for 10 days total abx -monitor fever curve, continue PRN tylenol INTEGUMENTARY - skin clean dry intact LINES/IV ACCESS - PIVs intact. DVT PROPHYLAXIS - -heparin on hold Thank you for allowing us to be part of this patient's care. Please refer to Dr. Moore's documentation for any further recommendations. (2) RSV (acute bronchiolitis due to respiratory syncytial virus): (3) HTN (hypertension): (4) Aspiration pneumonia: (5) Sepsis: (6) Acute encephalopathy: (7) Acute hypoxemic respiratory failure: (8) Seizure: (9) Marijuana abuse: (10) Acute kidney injury: Admission and Anticipated Discharge Date Admission Date: March 24, 2022 Supervising Physician Co-Signing Physician Notes Dr. Guevara was resident physician during care of patient. I separately evaluated patient for burns portions of the history and the exam. I was present during the critical portion of medical decision making, and I discussed the case with the resident. I generally agree with the findings and plan. Improving ARDS, MSSA pneumonia on appropriate antibiotic coverage anticipate 10 days antibiotic duration. We will discussed with patient's mother regarding possible LP, has been off acyclovir, white count downtrending however still having fevers. Certainly the patient's purulence in his lungs could be explaining his fevers. Will also discuss possible HIV testing and hepatitis C given illicit substances in his UDS. If family agreeable with lumbar puncture, will obtain then return from prone positioning and discontinue neuromuscular blockade. De-escalate from cefepime to Rocephin as single agent discontinue Flagyl. I have personally spent 55 minutes of critical care time in the direct management of this patient. This is a life/limb threatening event. This includes time spent evaluating patient, direct bedside care, chart review, placing orders, interpretation of diagnostic studies, discussion with consultants, patient, and/or family members regarding treatment decisions, as well as other required patient management activities. This time is exclusive of all separately billable procedures, and teaching time and separate from and in addition to any other critical care service time. Subjective Patient seen at bedside, prone and intubated. Review of Systems Review of Systems: Unobtainable due to endotracheal tube Physical Exam Constitutional: well developed, well nourished and + mechanically ventilated Neck: trachea midline, no thyromegaly Respiratory: Auscultation: lungs clear to auscultation bilaterally Cardiovascular: Rate/Rhythm: regular rate and regular rhythm Skin: no rashes, warm and dry Neurologic: + obtunded Results & Data Results & Data ([facility] [place]) Vital Signs (Past 12 Hours) Vital Signs Temp Pulse Resp BP Pulse Ox O2 Del Method FiO2 03/27/22 08:52 Mechanical Vent 50 03/27/22 08:00 50 03/27/22 08:00 103 H 03/27/22 08:00 103 H 20 97 50 03/27/22 06:00 38.0 C H 107 H 20 97 03/27/22 05:30 37.9 C H 110 H 20 96 03/27/22 05:00 38.0 C H 106 H 20 91 03/27/22 05:00 165/81 H 03/27/22 04:30 38.1 C H 117 H 17 94 03/27/22 04:00 38.2 C H 116 H 20 91 03/27/22 04:00 147/87 H 03/27/22 03:30 38.1 C H 127 H 20 95 03/27/22 03:00 38.0 C H 116 H 20 96 03/27/22 03:00 163/98 H 03/27/22 02:30 37.8 C H 127 H 20 97 03/27/22 02:01 37.7 C H 107 H 18 97 03/27/22 02:01 138/81 03/27/22 02:00 37.7 C H 110 H 20 96 03/27/22 01:30 37.9 C H 102 H 20 92 03/27/22 01:30 99/59 L 03/27/22 04:00 50 03/27/22 04:33 20 50 03/27/22 02:23 111 H 20 96 50 03/27/22 01:15 97/58 L 03/27/22 01:15 37.9 C H 107 H 20 92 03/27/22 01:00 38.0 C H 111 H 20 90 03/27/22 01:00 100/49 L 03/27/22 00:46 97/55 L 03/27/22 00:46 38.1 C H 111 H 17 91 03/27/22 00:30 38.1 C H 116 H 22 93 03/27/22 00:30 155/105 H 03/27/22 00:15 119/82 03/27/22 00:15 38.1 C H 110 H 20 93 03/27/22 00:00 38.2 C H 110 H 20 96 03/27/22 00:00 124/69 03/26/22 23:45 115/73 03/26/22 23:45 38.2 C H 115 H 20 96 03/26/22 23:30 38.3 C H 118 H 20 96 03/26/22 23:30 130/71 03/26/22 23:15 107/59 L 03/26/22 23:15 38.4 C H 119 H 20 96 03/26/22 23:00 38.4 C H 126 H 20 93 03/26/22 23:00 138/75 03/26/22 22:45 128/72 03/26/22 22:45 121 H 20 96 03/27/22 00:00 50 03/26/22 22:30 128 H 20 96 03/26/22 22:30 136/74 03/26/22 22:15 119/86 03/26/22 22:15 126 H 20 95 03/26/22 22:00 38.4 C H 137 H 20 95 03/26/22 22:00 135/81 03/26/22 21:45 140/77 03/26/22 21:45 108 H 20 95 03/26/22 21:30 144 H 20 95 03/26/22 21:30 157/103 H 03/26/22 22:48 124 H 20 96 50 Resident Activity Tracking Resident Involvement: Resident Care Provided Care Provided: Adult Hospital Medicine
[2022-03-27] MEDS: HEPARIN SOD 5,000 UNIT/0.5 ML VIAL SQ SCH (10:17)
[2022-03-27] MEDS ORDERED: LIDOCAINE 1% LOCAL 20 ML VIAL ONE (10:33)
--- NOTE | 2022-03-27 10:48 | Procedure Note ---
Procedure Note Date of Service March 27, 2022 Note Procedure Date: 03/27/2022 Procedure: Lumbar puncture Pre-procedure Diagnosis: Acute Encephalopathy Post-procedure Diagnosis: same as above Prior to Procedure: Informed Consent: The risks, benefits, indications, potential complications, and alternatives were explained to the [patient/family] and informed consent obtained. Attending Staff: Tramaine Moore DO Resident/Physician Diet Supervisor: Belinda Guevara D.O. Indications: Elías Contreras is a 22 year old male patient with acute encephalopathy The identity of the patient was confirmed and a bedside time out was performed. Description of Procedure: Patient was positioned in the right lateral decubitus position, prepped and draped in usual sterile fashion. The L3-4 space located with bilateral iliac crests as landmarks. 1% Lidocaine without epinephrine was used to anesthetize the area. A 18 gauge spinal needle was introduced into the subarachnoid space. Stylet was removed with appropriate fluid return. Needle removed after adequate fluid collected and sterile bandage placed at puncture site. 14 mL of CSF fluid collected. Fluid was clear. Specimen(s): sent for Gram Stain, culture, cell count, glucose, protein, meningitis biofire Complications: none Estimated Blood Loss: trace Coding Resident Activity Tracking Resident Involvement: Resident Care Provided Care Provided: Adult [facility]
[2022-03-27] MEDS: cefTRIAXone SODIUM 2,000 MG in DEXTROSE 5% 50 ML IV SCH ×2 (11:08→23:18)
[2022-03-27] MEDS: LACTULOSE SYRUP 30 GM/45 ML UDP PO SCH (11:08)
[2022-03-27] MEDS: PANTOprazole 40 MG in SYRINGE 0 ML IV SCH (11:08)
[2022-03-27 11:24] LABS: Lyme Ab IgG w/WB Rflx Negative (Negative); Lyme Ab IgM w/WB Rflx Negative (Negative)
[2022-03-27 11:54] LABS: Total Protein CSF 30.8 mg/dl (15-45)
[2022-03-27] MEDS ORDERED: POTASSIUM PHOS 3 MMOL/1 ML INFUSION IV STA (11:54)
[2022-03-27 12:10] LABS: Appearance CSF Clear; CSF Count Tube # 3; CSF Xanthrochromic No xanthochromia; Color CSF Colorless
[2022-03-27] MEDS ORDERED: POTASSIUM PHOSPHATE 18 MMOL in SODIUM CHLORIDE 0.9% 500 ML IV ONE (12:30)
[2022-03-27 12:49] LABS: Cryptococcus neoformans/ga PCR Not Detected (NotDetected); Cytomegalovirus PCR Not Detected (NotDetected); Enterovirus PCR Not Detected (NotDetected); Escherichia coli K1 PCR Not Detected (NotDetected); Haemophilius influenzae PCR Not Detected (NotDetected); Herpes Simplex Virus 1 PCR Not Detected (NotDetected); Herpes Simplex Virus 2 PCR Not Detected (NotDetected); Human Herpes Virus 6 PCR Not Detected (NotDetected); Human Parechovirus PCR Not Detected (NotDetected); Listeria monocytogenes PCR Not Detected (NotDetected); Neisseria meningitidis PCR Not Detected (NotDetected); Streptococcus agalactiae PCR Not Detected (NotDetected); Streptococcus pneumoniae PCR Not Detected (NotDetected); Varicella Zoster Virus PCR Not Detected (NotDetected)
[2022-03-27] MEDS ORDERED: FUROSEMIDE INJ 20 MG/2 ML VIAL IV ONE (13:38)
[2022-03-27] MEDS: TUBE FEEDING WATER FLUSH NG SCH ×2 (13:51→20:31)
[2022-03-27] MEDS: PEPTAMEN INTENSE VHP 1.0 CAL 1,000 ML BAG OG SCH (13:53)
[2022-03-27] MEDS: MIDAZOLAM HCL 125 MG/250 ML BAG IV SCH (16:13)
--- NOTE | 2022-03-27 16:59 | Hospitalist Progress Note ---
Date of Service March 27, 2022 Assessment & Plan (1) Acute hypoxemic respiratory failure: Plan: ARDS and acute hypoxic respiratory failure, CXRs suggest aspiration pneumonia. RSV was also positive on admission. Vent suction sputum cx from 03/25 growing MSSA. Currently intubated, ventilated and sedated - Currently on ceftriaxone - Appreciate Critical care (2) Seizure: Plan: -Patient was brought to the hospital after a seizure, no previous history of seizure according to his mother. Observed seizure activity while in the ER, initial lactate elevated. Patient with history of marijuana use Extreme agitation in ER required intubation and sedation MRI brain essentially wnl, no suggestion of encephalitis, no meningeal enhancement. Initially empirically covered with acyclovir/azith romycin/ceftriaxone/vancomycin/dexamethasone - LP on 03/27 with negative BioFire panel. CSF culture pending. De-escalated abx to ceftriaxone per ICU attending. (3) Aspiration pneumonia: Plan: Following seizure. - As above (4) HTN (hypertension): Plan: Prior elevated blood pressure, no diagnosis of HTN. Presently low-normal at 97/56. - IV PRN meds for BP control (5) Delirium: Plan: Infectious encephalopathy. - Conservative measures. Presently sedated due to intubation. (6) DVT prophylaxis: Plan: Heparin on hold per ICU team - Resume as able Admission and Anticipated Discharge Date Admission Date: March 24, 2022 Subjective Intubated and sedated Review of Systems Review of Systems: Unobtainable due to cognitive status and Unobtainable due to endotracheal tube Physical Exam Constitutional: + acute distress and + ill appearing Eyes: EOM intact bilaterally; no conjunctival abnormality ENMT: external ear and nose normal, oropharynx normal Neck: trachea midline, no thyromegaly normal visual inspection Respiratory: normal respiratory effort, lungs clear to auscultation no respiratory distress Cardiovascular: RRR, no murmur, no edema Gastrointestinal (Abdomen): Inspection/Auscultation: abdomen normal to inspection; abdomen not distended Skin: no rashes, warm and dry Neurologic: + does not move all extremities and + not awake Psychiatric: Orientation: + not alert and + not oriented to person Results & Data Results & Data ([facility]) Vital Signs (Past 12 Hours) Vital Signs Temp Pulse Resp BP Pulse Ox O2 Del Method FiO2 03/27/22 16:30 97/56 L 03/27/22 16:30 38.4 C H 116 H 20 94 03/27/22 16:00 38.7 C H 118 H 20 96 03/27/22 16:00 97/56 L 03/27/22 15:30 143/88 H 03/27/22 15:30 38.8 C H 150 H 32 H 80 L 03/27/22 15:00 38.5 C H 118 H 20 97 03/27/22 15:00 112/68 03/27/22 14:30 38.4 C H 112 H 20 95 03/27/22 14:30 106/64 03/27/22 16:00 90 03/27/22 16:00 118 H 03/27/22 16:03 118 H 20 94 90 03/27/22 14:00 38.2 C H 115 H 19 95 03/27/22 14:00 94/62 L 03/27/22 13:31 133 H 23 88 L 03/27/22 13:31 127/93 03/27/22 13:23 37.9 C H 110 H 18 91 03/27/22 13:23 88/56 L 03/27/22 13:00 37.8 C H 114 H 21 90 03/27/22 13:00 88/55 L 03/27/22 12:00 37.7 C H 127 H 25 H 94 03/27/22 12:00 96/57 L 03/27/22 11:00 37.8 C H 105 H 20 91 03/27/22 11:00 101/52 L 03/27/22 10:52 128 H 20 88 L 03/27/22 10:52 146/76 H 03/27/22 10:01 157/92 H 03/27/22 10:01 37.9 C H 109 H 20 03/27/22 10:00 37.9 C H 107 H 20 95 03/27/22 09:01 145/91 H 03/27/22 09:01 38.1 C H 111 H 20 94 03/27/22 09:00 38.1 C H 114 H 20 94 03/27/22 08:15 174/93 H 03/27/22 08:15 38.0 C H 112 H 20 99 03/27/22 08:00 37.9 C H 100 H 20 97 03/27/22 08:00 180/94 H 03/27/22 07:45 172/93 H 03/27/22 07:45 37.8 C H 100 H 20 96 03/27/22 07:00 37.9 C H 104 H 20 98 03/27/22 07:00 146/85 H 03/27/22 06:45 38.0 C H 102 H 20 95 03/27/22 11:48 108 H 21 97 80 03/27/22 11:23 103 H 03/27/22 11:23 50 03/27/22 08:52 Mechanical Vent 50 03/27/22 08:00 50 03/27/22 08:00 103 H 03/27/22 08:00 103 H 20 97 50 03/27/22 06:00 38.0 C H 107 H 20 97 03/27/22 05:30 37.9 C H 110 H 20 96 03/27/22 05:00 38.0 C H 106 H 20 91 03/27/22 05:00 165/81 H PG Care Time/CCT Total # of Minutes Spent Total Time Spent with Patient: Total time spent is greater than 50% in coordination of care (as documented) at patient's floor/unit and/or counseling patient: Coding Level of Care Code 93090 Subseq Hosp Care Lvl 3 Diagnoses Acute hypoxemic respiratory failure J96.01 Seizure R56.9 Aspiration pneumonia J69.0 HTN (hypertension) I10 Delirium R41.0 DVT prophylaxis Z29.9
[2022-03-27 21:08] LABS: BUN Creatinine Ratio 10.1 (10-20); Calcium 7.8 mg/dl (8.5-10.1); Est GFR (African American) 83.5 ml/min; Est GFR (Non-African American) 72.1 ml/min; Magnesium 1.9 mg/dl (1.7-2.4); Potassium 3.7 mmol/L (3.5-5.1)
--- NOTE | 2022-03-27 21:45 | XRay Report ---
SINGLE VIEW CHEST CLINICAL HISTORY: Endotracheal tube assessment. FINDINGS: 2 AP, portable, upright chest radiographs are compared to study dated 03/[facility]/2022. [facility] [place] is degraded by portable technique and apical lordotic positioning. An endotracheal tube is in place and projects approximately 4 cm the trever. An enteric tube projects below the diaphragm. The c ardiomediastinal silhouette is unremarkable. Pulmonary vascular congestion is suspected. Bilateral ai rspace opacities are similar yesterday. Small pleural effusions are suspected. No pneumothorax is see n. The bony thorax is grossly intact. IMPRESSION: 1. Endotracheal and enteric tubes as above. 2. Suspect pulmonary vascular congestion. 3. Bilateral airspace opacities are similar to previous, as are layering pleural effusions. ACT 112: Negative or not required by law. Electronically signed by: Luis Contreras M.D. 03/27/2022 9:44 PM
[2022-03-27] MEDS: POTASSIUM CHLORIDE 20 MEQ/15 ML UDC NG SCH (22:01)
[2022-03-27] MEDS: POT PHOSPHATE MONOBASIC W/ SOD TAB NG SCH (22:01)
[2022-03-27] MEDS: MAGNESIUM OXIDE 400 MG TAB NG SCH (22:01)
[2022-03-27] MEDS ORDERED: IBUPROFEN 200 MG/10 ML UDC PO STA (22:12)
[2022-03-28] MEDS: TUBE FEEDING WATER FLUSH NG SCH ×6 (00:08→22:12)
[2022-03-28] MEDS: fentaNYL citrate 2,500 MCG/250 ML BAG IV SCH ×4 (01:21→16:14)
[2022-03-28] MEDS: MAGNESIUM OXIDE 400 MG TAB NG SCH ×5 (01:21→22:19)
[2022-03-28] MEDS: POT PHOSPHATE MONOBASIC W/ SOD TAB NG SCH ×5 (01:21→16:44)
[2022-03-28] MEDS: POTASSIUM CHLORIDE 20 MEQ/15 ML UDC NG SCH ×5 (01:21→22:18)
[2022-03-28] MEDS: propofoL 1,000 MG/100 ML VIAL IV SCH ×7 (01:21→18:24)
[2022-03-28 06:03] LABS: Basophils # (auto) 0.04 K/uL (0-0.2); Basophils % (auto) 0.7 %; Eosinophils # (auto) 0.22 K/uL (0-0.50); Eosinophils % (auto) 3.8 %; Hematocrit (blood only) 33.1 % (40.1-51.0); Hemoglobin 11.2 g/dl (14.0-18.0); Immature Granulocytes # (auto) 0.02 K/uL (0.00-0.02); Immature Granulocytes % (auto) 0.3 %; Lymphocytes # (auto) 1.01 K/uL (1.2-3.4); Lymphocytes % (auto) 17.2 %; Mean Corpuscular Hemoglobin 32.6 pg (25.0-34.0); Mean Corpuscular Hgb Conc 33.8 g/dL (32.0-36.0); Mean Corpuscular Volume 96.2 fL (80.0-100.0); Mean Platelet Volume 9.6 fL (9.4-12.4); Monocytes # (auto) 0.41 K/uL (0.24-0.82); Neutrophils # (auto) 4.16 K/uL (1.4-6.5); Platelet Count 181 K/uL (130-400); RDW Coefficient of Variation 12.4 % (11.5-14.5); RDW Standard Deviation 43.8 fL (36.4-46.3); Red Blood Count 3.44 M/uL (4.63-6.08); White Blood Count 5.86 K/ul (4.8-10.8)
[2022-03-28 06:29] LABS: BUN Creatinine Ratio 12.1 (10-20); Calcium 7.9 mg/dl (8.5-10.1); Creatinine Clr Calc Pharmacy 95.8 ml/min; Est GFR (African American) 88.1 ml/min; Potassium 3.5 mmol/L (3.5-5.1)
[2022-03-28] MEDS: ICU ELECTROLYTE REPLACEMENT PROTOCOL SCH ×2 (06:35→18:32)
--- NOTE | 2022-03-28 07:40 | Critical Care Progress Note ---
Date of Service March 28, 2022 Assessment & Plan (1) ARDS (adult respiratory distress syndrome): Plan: ICU Assessment and Plans Reason Critically Ill: 22-year-old male here with PMHx medical marijuana usage who presented with seizure and who was admitted for [facility] Neuro - [facility] ICU: NEGATIVE Sedation: Propofol, fentanyl, midazolam, PRN ativan Analgesia: PRN tylenol Acute Encephalopathy -MRI brain unremarkable. CT head negative. -Neurology consulted, seizure 03/24 likely 2/2 infection hold EEG -lumbar puncture 03/27 CSF studies and meningitis panel negative, low concern meningitis -he has been off acyclovir since 03/25 4am -cefepime flyagyl azithromycin discontinued, will use rocephin 2000mg q12hr -testing for HIV, lyme consent received from mom -discontinue neuromuscular blockade Cardiac - Elevated Troponin -downtrending Respiratory - ARDS -Patient with ARDS essentially secondary to RSV and aspiration pneumonitis. -sputum culture MSSA -mechanically vented and proned, stopped proning 03/27 -dc neuromuscular blockade -he has been off acyclovir since 03/25 4am -cefepime flyagyl azithromycin discontinued, switched to rocephin 03/28, dc'd and switched to cefazolin Mucus Plugging -plan for bronch today GI - -NPO -on prophylactic PPI -continue bowel regime RENAL/LYTES - CARLEE -resolved, replace lytes as needed, continue to monitor -SUSANNE screen, ANCA screen and anti-GBM screen pending. - No concerns at this time. ENDO - No concerns at this time. HEME - Stable H&H. Heparin on hold ID - Sepsis /2 MSSA pneumonia -cefepime flyagyl azithromycin discontinued, switched to rocephin 03/28, dc'd and switched to cefazolin for 10 days total abx -monitor fever curve, continue PRN tylenol INTEGUMENTARY - skin clean dry intact LINES/IV ACCESS - PIVs intact. DVT PROPHYLAXIS - -lovenox Thank you for allowing us to be part of this patient's care. Please refer to Dr. Moore's documentation for any further recommendations. (2) RSV (acute bronchiolitis due to respiratory syncytial virus): (3) HTN (hypertension): (4) Aspiration pneumonia: (5) Sepsis: (6) Acute encephalopathy: (7) Acute hypoxemic respiratory failure: (8) Seizure: (9) Marijuana abuse: (10) Acute kidney injury: Admission and Anticipated Discharge Date Admission Date: March 24, 2022 Supervising Physician Co-Signing Physician Notes Dr. Guevara was resident physician during care of patient. I separately evaluated patient for burns portions of the history and the exam. I was present during the critical portion of medical decision making, and I discussed the case with the resident. I generally agree with the findings and plan. waxing and waning oxygenation, suctioning purulent secretions, off NMB, anticipate bronchoscopy to remove purulence; however, will consider possible weaning and extubation. LP results reviewed. Convert to cefazolin from rocephin. Lovenox for dvt prophylaxis. I have personally spent 40 minutes of critical care time in the direct management of this patient. This is a life/limb threatening event. This includes time spent evaluating patient, direct bedside care, chart review, placing orders, interpretation of diagnostic studies, discussion with consultants, patient, and/or family members regarding treatment decisions, as well as other required patient management activities. This time is exclusive of all separately billable procedures, and teaching time and separate from and in addition to any other critical care service time. Subjective Patient seen at bedside, intubated and sedated. Max temp overnight 39.1 C, received tylenol ibuprofen and ice for temperature control. Otherwise no acute events overnight. Review of Systems Review of Systems: Unobtainable due to endotracheal tube Physical Exam Constitutional: well developed, well nourished and + mechanically ventilated ENMT: external ear and nose normal, oropharynx normal Neck: trachea midline, no thyromegaly Respiratory: Auscultation: lungs clear to auscultation bilaterally Cardiovascular: Rate/Rhythm: regular rate and regular rhythm Gastrointestinal (Abdomen): Inspection/Auscultation: abdomen normal to inspection Percussion/Palpation: abdomen soft Skin: no rashes, warm and dry Neurologic: + obtunded Results & Data Results & Data ([facility]) Vital Signs (Past 12 Hours) Vital Signs Temp Pulse Pulse Resp BP Pulse Ox O2 Del Method 03/28/22 07:30 38.2 C H 102 H 20 91/37 L 91 Mechanical Vent 03/28/22 07:00 38.1 C H 106 H 20 90/48 L 90 Mechanical Vent 03/28/22 07:00 101 H 03/28/22 07:00 03/28/22 05:37 03/28/22 05:00 37.5 C 93 H 20 88 L 03/28/22 05:00 91/55 L 03/28/22 04:30 37.3 C 90 19 03/28/22 04:30 109/66 03/28/22 04:00 37.3 C 87 18 03/28/22 04:00 107/62 03/28/22 03:30 37.3 C 91 H 18 90 03/28/22 03:30 109/56 L 03/28/22 03:00 37.4 C 93 H 18 90 03/28/22 03:00 102/56 L 03/28/22 02:30 37.5 C 92 H 18 92 03/28/22 02:30 99/59 L 03/28/22 02:00 37.7 C H 96 H 18 03/28/22 02:00 102/54 L 03/28/22 05:10 03/28/22 04:44 03/28/22 01:15 03/28/22 02:35 94 H 20 93 03/28/22 04:00 03/28/22 01:30 37.8 C H 102 H 17 03/28/22 01:30 93/50 L 03/28/22 01:00 37.9 C H 104 H 20 95 03/28/22 01:00 122/70 03/28/22 00:30 38.0 C H 102 H 20 93 03/28/22 00:30 113/70 03/27/22 23:50 110 H 20 94 03/28/22 00:00 38.2 C H 106 H 20 93 03/28/22 00:00 105/68 03/27/22 23:30 38.7 C H 107 H 20 92 03/27/22 23:30 102/50 L 03/27/22 23:00 39.0 C H 116 H 20 95 03/27/22 23:00 105/69 03/27/22 22:30 118/74 03/27/22 22:30 39.1 C H 111 H 20 03/27/22 22:00 38.8 C H 110 H 21 96 03/27/22 22:00 126/72 03/27/22 21:31 99/64 L 03/27/22 21:31 38.6 C H 108 H 20 98 03/27/22 21:00 38.5 C H 101 H 20 03/27/22 21:00 98/62 L 03/27/22 20:30 84/48 L 03/27/22 20:30 38.6 C H 106 H 20 95 03/27/22 20:21 90/48 L 03/27/22 20:21 38.6 C H 110 H 20 95 03/27/22 20:00 38.5 C H 110 H 20 95 03/28/22 00:00 03/27/22 20:31 106 H 20 94 Mechanical Vent 03/27/22 20:31 106 H 20 94 03/27/22 20:00 Mechanical Vent 03/27/22 20:00 FiO2 03/28/22 07:30 50 03/28/22 07:00 50 03/28/22 07:00 03/28/22 07:00 50 03/28/22 05:37 70 03/28/22 05:00 03/28/22 05:00 03/28/22 04:30 03/28/22 04:30 03/28/22 04:00 03/28/22 04:00 03/28/22 03:30 03/28/22 03:30 03/28/22 03:00 03/28/22 03:00 03/28/22 02:30 03/28/22 02:30 03/28/22 02:00 03/28/22 02:00 03/28/22 05:10 80 03/28/22 04:44 60 03/28/22 01:15 60 03/28/22 02:35 50 03/28/22 04:00 60 03/28/22 01:30 03/28/22 01:30 03/28/22 01:00 03/28/22 01:00 03/28/22 00:30 03/28/22 00:30 03/27/22 23:50 70 03/28/22 00:00 03/28/22 00:00 03/27/22 23:30 03/27/22 23:30 03/27/22 23:00 03/27/22 23:00 03/27/22 22:30 03/27/22 22:30 03/27/22 22:00 03/27/22 22:00 03/27/22 21:31 03/27/22 21:31 03/27/22 21:00 03/27/22 21:00 03/27/22 20:30 03/27/22 20:30 03/27/22 20:21 03/27/22 20:21 03/27/22 20:00 03/28/22 00:00 70 03/27/22 20:31 80 03/27/22 20:31 80 03/27/22 20:00 03/27/22 20:00 80 Resident Activity Tracking Resident Involvement: Resident Care Provided Care Provided: Adult Hospital Medicine
[2022-03-28] MEDS: SODIUM CHLOR 7% 4 ML NEB NEB SCH ×2 (07:43→20:20)
[2022-03-28] MEDS: LACTULOSE SYRUP 30 GM/45 ML UDP PO SCH (08:37)
[2022-03-28] MEDS: DOCUSATE SODIUM/SENNA 50/8.6MG TAB PO SCH ×2 (08:37→22:12)
--- NOTE | 2022-03-28 08:44 | XRay Report ---
XR chest 1V portable HISTORY: Respiratory distress. eval tube and lung barton while intubated COMPARISON: Chest 03/27/2022. FINDINGS: There are low lung volumes. No pneumothorax. The heart is top normal in size. Bilateral mid to lower lung zone hazy airspace opacities and small bilateral pleural effusions persist. Nasogastri c tube terminates below the diaphragm. Endotracheal tube terminates approximately 5.5 cm from the car aleshia. IMPRESSION: 1. Lines and tubes as above. 2. No significant change in the hazy bilateral mid to lower lung zone airspace opacities and small bi lateral pleural effusions. ACT 112: Negative or not required by law. Electronically signed by: Ruddy Mares M.D. 03/28/2022 8:42 AM
[2022-03-28] MEDS ORDERED: LORazepam 4 MG in SYRINGE 0 ML IV PRN (09:03)
[2022-03-28] MEDS: MIDAZOLAM HCL 125 MG/250 ML BAG IV SCH ×2 (09:46→13:36)
[2022-03-28] MEDS ORDERED: DOCUSATE SODIUM/SENNA 50/8.6MG TAB PO ONE (10:15)
[2022-03-28] MEDS: fentaNYL BOLUS from BAG IV PRN ×2 (10:15→10:35)
[2022-03-28] MEDS: MIDAZOLAM BOLUS FROM BAG IV PRN ×4 (10:15→11:08)
[2022-03-28] MEDS: PROPOFOL BOLUS FROM BAG IV PRN ×5 (10:15→13:59)
[2022-03-28] MEDS ORDERED: STAT IV Infusion **Titration per Protocol STA ×2 (11:09→14:01)
[2022-03-28] MEDS: dexMEDEtomidine 200 MCG/50 ML BAG IV SCH ×5 (11:30→22:19)
[2022-03-28] MEDS: ENOXAPARIN INJ 40 MG/0.4 ML SYR SQ SCH (12:04)
[2022-03-28] MEDS: ceFAZolin 2,000 MG in SYRINGE 0 ML IV SCH ×2 (12:06→18:26)
[2022-03-28] MEDS: PANTOprazole 40 MG in SYRINGE 0 ML IV SCH (12:06)
[2022-03-28] MEDS: IBUPROFEN 200 MG/10 ML UDC PO PRN (12:12)
[2022-03-28] MEDS ORDERED: NOREPINEPHRINE/D5W 4 MG/250 ML IV ONE (14:02)
[2022-03-28] MEDS: NOREPINEPHRINE/D5W 4 MG/250 ML PLCT IV SCH (14:13)
--- NOTE | 2022-03-28 15:48 | Hospitalist Progress Note ---
Date of Service March 28, 2022 Assessment & Plan (1) Acute hypoxemic respiratory failure: Plan: ARDS and acute hypoxic respiratory failure, CXRs suggest aspiration pneumonia. RSV was also positive on admission. Vent suction sputum cx from 03/25 growing MSSA. Currently intubated, ventilated and sedated - Currently on cefazolin for MSSA pneumonia. - Appreciate Critical care (2) Seizure: Plan: Patient was brought to the hospital after a seizure, no previous history of seizure according to his mother. Observed seizure activity while in the ER, initial lactate & prolactin elevated. Patient with history of marijuana use Extreme agitation in ER required intubation and sedation MRI brain essentially wnl, no suggestion of encephalitis, no meningeal enhancement. Initially empirically covered with acyclovir/azithromycin/ceftriaxone/vancomycin/dexamethasone - LP on 03/27 with negative [employer] panel. CSF culture pending. De-escalated abx to cefazolin per ICU attending. (3) Aspiration pneumonia: Plan: Following seizure. - As above (4) HTN (hypertension): Plan: Prior elevated blood pressure, no diagnosis of HTN. Presently low-normal at 97/56. - IV PRN meds for BP control (5) Delirium: Plan: Infectious encephalopathy. - Conservative measures. Presently sedated due to intubation. (6) DVT prophylaxis: Plan: Heparin on hold per ICU team - Resume as able Admission and Anticipated Discharge Date Admission Date: March 24, 2022 Subjective Intubated and sedated. Per RN, he has been agitated throughout the day. Physical Exam Constitutional: WD/WN, vitals as above + acute distress and + ill appearing Eyes: EOM intact bilaterally; no conjunctival abnormality ENMT: external ear and nose normal, oropharynx normal Neck: trachea midline, no thyromegaly normal visual inspection Respiratory: normal respiratory effort, lungs clear to auscultation no respiratory distress Cardiovascular: RRR, no murmur, no edema Gastrointestinal (Abdomen): Inspection/Auscultation: abdomen normal to inspection; abdomen not distended Musculoskeletal: no cyanosis or clubbing, extremities motor strength 5/5 Skin: no rashes, warm and dry Neurologic: + does not move all extremities and + not awake Psychiatric: Orientation: cooperative; + not alert and + not oriented to person Results & Data Results & Data ([facility]) Vital Signs (Past 12 Hours) Vital Signs Temp Pulse Resp BP Pulse Ox O2 Del Method FiO2 03/28/22 13:33 38.8 C H 104 H 20 86/40 L 94 Mechanical Vent 100 03/28/22 13:30 38.9 C H 104 H 20 82/38 L 94 Mechanical Vent 100 03/28/22 13:23 38.9 C H 104 H 20 81/36 L 93 Mechanical Vent 100 03/28/22 13:20 38.9 C H 106 H 20 75/41 L 93 Mechanical Vent 100 03/28/22 13:13 38.9 C H 107 H 18 84/46 L 93 Mechanical Vent 100 03/28/22 13:10 38.9 C H 108 H 20 83/42 L 93 Mechanical Vent 100 03/28/22 13:09 38.9 C H 106 H 20 90/42 L 93 Mechanical Vent 100 03/28/22 13:05 38.9 C H 109 H 20 78/40 L 93 Mechanical Vent 100 03/28/22 13:00 39.0 C H 109 H 20 133/113 H 92 Mechanical Vent 100 03/28/22 12:55 39.0 C H 111 H 24 99/59 L 91 Mechanical Vent 100 03/28/22 12:52 39.0 C H 112 H 23 93/40 L 92 Mechanical Vent 100 03/28/22 12:50 39.0 C H 113 H 21 89/40 L 91 Mechanical Vent 100 03/28/22 12:45 39.1 C H 115 H 21 102/38 L 92 Mechanical Vent 100 03/28/22 12:44 39.0 C H 112 H 21 91/41 L 93 Mechanical Vent 100 03/28/22 12:40 39.1 C H 110 H 23 98/45 L 95 Mechanical Vent 100 03/28/22 12:37 39.1 C H 107 H 18 84/37 L 93 Mechanical Vent 100 03/28/22 12:35 39.2 C H 116 H 21 96/49 L 92 Mechanical Vent 100 03/28/22 12:30 39.2 C H 124 H 20 102/53 L 92 Mechanical Vent 100 03/28/22 12:25 39.2 C H 147 H 32 H 124/82 90 Mechanical Vent 100 03/28/22 12:20 39.2 C H 162 H 51 H 138/113 H 81 L Mechanical Vent 100 03/28/22 12:15 39.3 C H 123 H 22 108/73 93 Mechanical Vent 100 03/28/22 12:13 39.3 C H 120 H 17 106/53 L 94 Mechanical Vent 100 03/28/22 12:10 39.3 C H 120 H 17 94/49 L 94 100 03/28/22 12:05 39.3 C H 120 H 21 99/55 L 94 Mechanical Vent 100 03/28/22 12:00 100 03/28/22 11:34 140 H 24 92 100 03/28/22 11:33 Mechanical Vent 03/28/22 10:00 38.1 C H 105 H 20 130/63 96 Mechanical Vent 50 03/28/22 09:30 37.9 C H 104 H 20 104/52 L 95 Mechanical Vent 50 03/28/22 09:00 37.9 C H 99 H 20 92/49 L 93 Mechanical Vent 50 03/28/22 08:30 37.9 C H 97 H 20 90/42 L 92 Mechanical Vent 50 03/28/22 10:06 Mechanical Vent 50 03/28/22 08:00 37.9 C H 99 H 20 92/43 L 91 Mechanical Vent 50 03/28/22 08:09 102 H 20 90 50 03/28/22 07:30 38.2 C H 102 H 20 91/37 L 91 Mechanical Vent 50 03/28/22 07:00 38.1 C H 106 H 20 90/48 L 90 Mechanical Vent 50 03/28/22 07:00 Mechanical Vent 50 03/28/22 07:00 101 H 03/28/22 07:00 50 03/28/22 05:37 70 03/28/22 05:00 37.5 C 93 H 20 88 L 03/28/22 05:00 91/55 L 03/28/22 04:30 37.3 C 90 19 03/28/22 04:30 109/66 03/28/22 04:00 37.3 C 87 18 03/28/22 04:00 107/62 03/28/22 05:10 80 03/28/22 04:44 60 03/28/22 04:00 60 PG Care Time/CCT Total # of Minutes Spent Total Time Spent with Patient: Total time spent is greater than 50% in coordination of care (as documented) at patient's floor/unit and/or counseling patient: Coding Level of Care Code 02145 Subseq Hosp Care Lvl 3 Diagnoses Acute hypoxemic respiratory failure J96.01 Seizure R56.9 Aspiration pneumonia J69.0 HTN (hypertension) I10 Delirium R41.0 DVT prophylaxis Z29.9
--- NOTE | 2022-03-28 16:01 | Billing Data ---
Date of Service March 27, 2022 Coding Level of Care Code Critical Care 1st - mins
--- NOTE | 2022-03-28 16:01 | Billing Data ---
Date of Service March 28, 2022 Coding Level of Care Code Critical Care 1st - mins
--- NOTE | 2022-03-28 16:09 | Procedure Note ---
Procedure Note Date of Service March 28, 2022 Note Procedure: fiberoptic bronchoscopy Pre-procedure indication: Pulmonary infiltrate Post-procedure Diagnosis: same as above Prior to Procedure: Attending Staff: Sun Moore DO Resident/APC: Kylah Guevara DO Skin Prep: Not applicable Anesthesia: Continuous infusion The identity of the patient was confirmed and a bedside time out was performed. Description of Procedure: Fiberoptic bronchoscopy was performed via endotracheal tube. Bronchoalveolar lavage was not performed. There was greater than 50% less than 75% dynamic airway collapse with forced exhalation. There was no significant purulence noted. The airways were globally hyperemic. No mucoid impaction was noted. Complications: None Specimens: None Estimated blood loss: Zero Coding CPT Codes Pulmonary/Thoracic - Pulmonary and Thoracic: 49145 Dx bronchoscopy/BAL ([id number]) [facility] Procedure Codes (Charges) Pulmonary/Thoracic Procedure 1: Pulmonary and Thoracic: 62909 Dx bronchoscopy/BAL
[2022-03-28 18:22] LABS: Phosphorus 2.7 mg/dl (2.5-4.9); Potassium 3.7 mmol/L (3.5-5.1)
[2022-03-29] MEDS: TUBE FEEDING WATER FLUSH NG SCH ×6 (00:01→20:00)
[2022-03-29] MEDS: dexMEDEtomidine 200 MCG/50 ML BAG IV SCH ×3 (01:18→07:23)
[2022-03-29] MEDS: ceFAZolin 2,000 MG in SYRINGE 0 ML IV SCH ×3 (02:58→19:34)
[2022-03-29] MEDS: propofoL 1,000 MG/100 ML VIAL IV SCH ×7 (06:12→21:26)
[2022-03-29] MEDS: NOREPINEPHRINE/D5W 4 MG/250 ML PLCT IV SCH ×2 (06:32→11:20)
[2022-03-29] MEDS ORDERED: KETAMINE HCL INJ 50 MG/ML 10 ML VIAL ONE (07:08)
[2022-03-29] MEDS ORDERED: KETAMINE HCL INJ 50 MG/ML 10 ML VIAL IV STA ×2 (07:10→07:13)
[2022-03-29] MEDS ORDERED: RAPID SEQUENCE INDUCTION BAG ONE (07:16)
--- NOTE | 2022-03-29 07:46 | XRay Report ---
SINGLE VIEW CHEST CLINICAL HISTORY: Respiratory failure. FINDINGS: An AP, portable, semierect chest radiograph is compared to study dated 03/28/2022. The exam ination is degraded by portable technique and apical lordotic positioning. Endotracheal and enteric t ubes are unchanged in position. The cardiomediastinal silhouette is unremarkable. Pulmonary vascular congestion is suspected. Bilateral airspace opacities are similar yesterday. Small pleural effusions are noted. No pneumothorax is seen. The bony thorax is grossly intact. IMPRESSION: 1. Stable lines and tubes. 2. Suspect pulmonary vascular congestion. 3. Bilateral airspace opacities are similar to previous, as are small pleural effusions. ACT 112: Negative or not required by law. Electronically signed by: Luis Contreras M.D. 03/29/2022 7:45 AM
--- NOTE | 2022-03-29 08:06 | Critical Care Progress Note ---
Date of Service March 29, 2022 Assessment & Plan (1) ARDS (adult respiratory distress syndrome): Plan: ICU Assessment and Plans Reason Critically Ill: 22-year-old male here with PMHx medical marijuana usage who presented with seizure and who [facility] Neuro - [facility] ICU: NEGATIVE Sedation: Precedex propofol fentanyl midazolam serogquel Analgesia: PRN tylenol, motrin Acute Encephalopathy -MRI brain unremarkable. CT head negative. -Neurology consulted, seizure 03/24 likely 2/2 infection - attempted extubation 03/29 patient appeared to begin seizing again, reintubated will obtain EEG -lumbar puncture 03/27 CSF studies and meningitis panel negative, low concern meningitis -he has been off acyclovir since 03/25 4am -cefepime flyagyl azithromycin discontinued, switched to rocephin 03/28, dc'd and switched to cefazolin -testing for HIV, lyme consent received from mom -discontinue neuromuscular blockade Agitation -soft restraints ordered -1:1 sitter -ordered precedex Cardiac - Elevated Troponin -downtrending Volume overload -/2 IVF -ordered lasix Respiratory - ARDS -Patient with ARDS essentially secondary to RSV and aspiration pneumonitis. -sputum culture MSSA -mechanically vented and proned, stopped proning 03/27 extubation trial 03/29 became hypoxic, reintubated -dc neuromuscular blockade -he has been off acyclovir since 03/25 4am -cefepime flyagyl azithromycin discontinued, switched to rocephin 03/28, dc'd an d switched to cefazolin Mucus Plugging -bronch 03/29 negative for mucus plugging GI - -tube feeds -on prophylactic PPI -continue bowel regime -ordered dignishield RENAL/LYTES - CARLEE -resolved, replace lytes as needed, continue to monitor -SUSANNE screen, ANCA screen and anti-GBM screen pending. - No concerns at this time. ENDO - No concerns at this time. HEME - Stable H&H. ID - Sepsis /2 MSSA pneumonia -cefepime Flagyl azithromycin discontinued, switched to rocephin 03/28, dc'd and switched to cefazolin for 10 days total abx -monitor fever curve, continue PRN tylenol motrin INTEGUMENTARY - skin clean dry intact LINES/IV ACCESS - PIVs intact. DVT PROPHYLAXIS - -lovenox Thank you for allowing us to be part of this patient's care. Please refer to Dr. Moore's documentation for any further recommendations. (2) RSV (acute bronchiolitis due to respiratory syncytial virus): (3) HTN (hypertension): (4) Aspiration pneumonia: (5) Sepsis: (6) Acute encephalopathy: (7) Acute hypoxemic respiratory failure: (8) Seizure: (9) Marijuana abuse: (10) Acute kidney injury: Admission and Anticipated Discharge Date Admission Date: March 24, 2022 Supervising Physician Co-Signing Physician Notes Dr. Guevara was resident physician during care of patient. I separately evaluated patient for burns portions of the history and the exam. I was present during the critical portion of medical decision making, and I discussed the case with the resident. I generally agree with the findings and plan. Oxygenation improved. Increasing sedative requirements and having episodes of sitting up requiring significant bolus dosing as he is attempting to remove endotracheal tube. Given improvements in oxygenation and increasing combativeness we attempted a trial of extubation, and maintain Precedex for light anxiolysis to facilitate noninvasive high flow oxygen. Patient initially did well, reported to nursing staff that he smokes approximately 7 g of marijuana daily and drinks "A lot" of alcohol daily. Patient became more agitated with bowel movement and subsequently became combative and had increasing oxygen requirement during his agitation. We elected to reintubate given significant combativeness placing himself and staff at risk. Reinitiating sedation with ketamine and Precedex with Versed to augment effects also starting Seroquel 50 mg twice daily. Retracted ET tube 2 cm. Patient moving bowels. Elevated LFTs, will send acute hepatitis panel. gentle diuresis 20mg lasix x1, increase tube feedings to goal. I have personally spent 50 minutes of critical care time in the direct management of this patient. This is a life/limb threatening event. This includes time spent evaluating patient, direct bedside care, chart review, placing orders, interpretation of diagnostic studies, discussion with consultants, patient, and/or family members regarding treatment decisions, as well as other required patient management activities. This time is exclusive of all separately billable procedures, and teaching time and separate from and in addition to any other critical care service time. Subjective Patient seen at bedside, in soft restraints agitated but easily redirectable. Patient requests his oxygen be removed, calms down when explained that he needs the oxygen to breath, however he quickly forgets. Currently in soft restraints. He states he smokes 7 of marijuana and drinks alcohol daily. Patient complains of some SOB at this time, some abd pain. No recorded BM as of this morning. Patient became hypoxic after extubation trial, was reintubated Review of Systems Review of Systems: Unobtainable due to cognitive status Physical Exam Constitutional: well developed, well nourished and + in distress Eyes: PERRL, conjunctivae normal, anicteric sclerae ENMT: external ear and nose normal, oropharynx normal Neck: trachea midline, no thyromegaly Respiratory: Auscultation: lungs clear to auscultation bilaterally Cardiovascular: Rate/Rhythm: regular rate and regular rhythm Gastrointestinal (Abdomen): Inspection/Auscultation: + abdomen distended Percussion/Palpation: + abdomen tender (left sided, minor) Skin: no rashes, warm and dry Psychiatric: Orientation: oriented to person Results & Data Results & Data ([facility]) Vital Signs (Past 12 Hours) Vital Signs Temp Pulse Pulse Resp BP Pulse Ox O2 Del Method 03/29/22 05:00 38.0 C H 73 26 H 77 L 03/29/22 05:00 141/89 H 03/29/22 04:15 38.0 C H 88 25 H 97 03/29/22 04:15 150/97 H 03/29/22 04:00 38.0 C H 80 20 95 03/29/22 04:00 133/87 03/29/22 03:45 38.0 C H 81 21 95 03/29/22 03:45 130/85 03/29/22 03:30 37.9 C H 79 21 95 03/29/22 03:30 138/95 03/29/22 03:15 139/92 03/29/22 03:15 37.9 C H 80 21 95 03/29/22 03:00 37.9 C H 81 21 96 03/29/22 03:00 132/87 03/29/22 02:45 37.9 C H 80 20 95 03/29/22 02:45 134/87 03/29/22 02:30 37.9 C H 81 20 96 03/29/22 02:30 133/88 03/29/22 02:15 37.9 C H 81 21 96 03/29/22 02:15 130/86 03/29/22 02:00 37.9 C H 80 20 96 03/29/22 02:00 132/81 03/29/22 01:45 37.9 C H 81 21 96 03/29/22 01:45 134/84 03/29/22 01:30 131/80 03/29/22 01:30 37.9 C H 81 21 96 03/29/22 01:15 130/83 03/29/22 01:15 37.9 C H 79 20 96 03/29/22 01:00 37.9 C H 82 20 96 03/29/22 01:00 132/77 03/29/22 00:45 133/79 03/29/22 00:45 37.9 C H 83 21 96 03/29/22 00:30 128/80 03/29/22 00:30 37.9 C H 83 20 95 03/29/22 00:15 37.9 C H 82 21 94 03/29/22 00:15 124/78 03/29/22 00:00 37.9 C H 85 20 92 03/29/22 00:00 124/76 03/28/22 23:45 37.8 C H 81 22 95 03/28/22 23:45 131/83 03/28/22 23:30 37.8 C H 83 21 95 03/28/22 23:30 135/85 03/28/22 23:15 131/82 03/28/22 23:15 37.8 C H 83 22 95 03/28/22 23:00 37.8 C H 85 21 95 03/28/22 23:00 125/77 03/28/22 22:45 37.8 C H 84 22 95 03/28/22 22:45 126/80 03/28/22 22:30 119/79 03/28/22 22:30 37.8 C H 84 21 95 03/29/22 04:23 79 23 93 03/29/22 04:00 03/29/22 00:29 80 21 95 03/29/22 00:00 03/28/22 22:00 37.7 C H 84 20 95 03/28/22 22:00 125/79 03/28/22 21:45 119/78 03/28/22 21:45 37.7 C H 85 21 94 03/28/22 21:30 37.7 C H 83 20 94 03/28/22 21:30 121/78 03/28/22 21:15 118/75 03/28/22 21:15 37.7 C H 84 20 93 03/28/22 21:00 37.8 C H 83 21 92 03/28/22 21:00 123/75 03/28/22 20:45 37.8 C H 85 21 91 03/28/22 20:45 120/75 03/28/22 20:30 37.8 C H 85 20 91 03/28/22 20:30 113/74 03/28/22 20:15 37.9 C H 82 20 97 03/28/22 20:15 116/70 03/28/22 20:20 86 22 90 03/28/22 20:20 86 22 90 Mechanical Vent FiO2 03/29/22 05:00 03/29/22 05:00 03/29/22 04:15 03/29/22 04:15 03/29/22 04:00 03/29/22 04:00 03/29/22 03:45 03/29/22 03:45 03/29/22 03:30 03/29/22 03:30 03/29/22 03:15 03/29/22 03:15 03/29/22 03:00 03/29/22 03:00 03/29/22 02:45 03/29/22 02:45 03/29/22 02:30 03/29/22 02:30 03/29/22 02:15 03/29/22 02:15 03/29/22 02:00 03/29/22 02:00 03/29/22 01:45 03/29/22 01:45 03/29/22 01:30 03/29/22 01:30 03/29/22 01:15 03/29/22 01:15 03/29/22 01:00 03/29/22 01:00 03/29/22 00:45 03/29/22 00:45 03/29/22 00:30 03/29/22 00:30 03/29/22 00:15 03/29/22 00:15 03/29/22 00:00 03/29/22 00:00 03/28/22 23:45 03/28/22 23:45 03/28/22 23:30 03/28/22 23:30 03/28/22 23:15 03/28/22 23:15 03/28/22 23:00 03/28/22 23:00 03/28/22 22:45 03/28/22 22:45 03/28/22 22:30 03/28/22 22:30 03/29/22 04:23 60 03/29/22 04:00 60 03/29/22 00:29 60 03/29/22 00:00 60 03/28/22 22:00 03/28/22 22:00 03/28/22 21:45 03/28/22 21:45 03/28/22 21:30 03/28/22 21:30 03/28/22 21:15 03/28/22 21:15 03/28/22 21:00 03/28/22 21:00 03/28/22 20:45 03/28/22 20:45 03/28/22 20:30 03/28/22 20:30 03/28/22 20:15 03/28/22 20:15 03/28/22 20:20 60 03/28/22 20:20 60 Resident Activity Tracking Resident Involvement: Resident Care Provided Care Provided: Adult Hospital Medicine
[2022-03-29] MEDS: SODIUM CHLOR 7% 4 ML NEB NEB SCH (08:18)
[2022-03-29] MEDS: fentaNYL citrate 2,500 MCG/250 ML BAG IV SCH ×3 (08:44→21:25)
[2022-03-29] MEDS: dexMEDEtomidine 400 MCG/100 ML Bag (Premixed) IV SCH ×6 (09:00→23:03)
[2022-03-29 09:02] LABS: Albumin Globulin Ratio 1.1 (0.9-2); Albumin Level 3.1 gm/dl (3.4-5.0); BUN Creatinine Ratio 16.3 (10-20); Bilirubin,Total 0.5 mg/dl (0.2-1.0); Calcium 8.2 mg/dl (8.5-10.1); Creatinine Clr Calc Pharmacy 103.2 ml/min; Est GFR (Non-African American) 82.8 ml/min; Globulin 2.8 gm/dl (2.5-4.0); Magnesium 1.9 mg/dl (1.7-2.4); Phosphorus 2.7 mg/dl (2.5-4.9); Potassium 3.8 mmol/L (3.5-5.1); Total Protein 5.9 gm/dl (6.0-8.3)
[2022-03-29] MEDS ORDERED: VECURONIUM BROMIDE 10 MG VIAL IV ONE (09:12)
[2022-03-29] MEDS ORDERED: ALBUTEROL 0.083% NEBU SOLN 3 ML VIAL ONE (09:15)
[2022-03-29 09:21] LABS: Hematocrit (blood only) 33.9 % (40.1-51.0); Hemoglobin 11.6 g/dl (14.0-18.0); Mean Corpuscular Hemoglobin 32.9 pg (25.0-34.0); Mean Corpuscular Hgb Conc 34.2 g/dL (32.0-36.0); Mean Platelet Volume 9.5 fL (9.4-12.4); Platelet Count 203 K/uL (130-400); RDW Coefficient of Variation 12.4 % (11.5-14.5); RDW Standard Deviation 43.6 fL (36.4-46.3); Red Blood Count 3.53 M/uL (4.63-6.08); White Blood Count 5.35 K/ul (4.8-10.8)
[2022-03-29] MEDS ORDERED: KETAMINE / NSS 500 MG/500 ML BAG IV SCH (09:30)
--- NOTE | 2022-03-29 09:39 | XRay Report ---
SINGLE VIEW CHEST CLINICAL HISTORY: Endotracheal tube repositioning. Respiratory failure. FINDINGS: An AP, portable, supine chest radiograph is compared to study performed earlier the same da y 03/29/2022. The examination is degraded by portable technique and apical lordotic positioning. An e nteric tube is unchanged in position. The endotracheal tube has been advanced and now projects at the level of the right mainstem bronchus. The cardiomediastinal silhouette is unremarkable. Pulmonary va scular congestion is suspected. Bilateral airspace opacities are similar yesterday. Small pleural eff usions are suspect. No pneumothorax is seen. The bony thorax is grossly intact. IMPRESSION: 1. The endotracheal tube has been advanced and now projects at the right mainstem bronchus. This shou ld be pulled back. 2. Suspect pulmonary vascular congestion. 3. Bilateral airspace opacities are similar to previous. ACT 112: Negative or not required by law. Electronically signed by: Luis Contreras M.D. 03/29/2022 9:37 AM
[2022-03-29] MEDS ORDERED: FUROSEMIDE INJ 20 MG/2 ML VIAL IV ONE ×2 (09:43→12:40)
--- NOTE | 2022-03-29 09:45 | Procedure Note ---
Procedure Note Date of Service March 29, 2022 Note Procedure Date: Noted above Procedure: Endotracheal intubation Pre-procedure Diagnosis: Agitation with acute hypoxic respiratory failure Post-procedure Diagnosis: same as above Prior to Procedure: Informed Consent: emergent Attending Staff: Sun Moore DO The identity of the patient was confirmed and a bedside time out was performed. Description of Procedure: Patient was evaluated and required intubation for impending respiratory failure. The patient was prepared in the usual fashion. A video laryngoscope was used. A 8.0 mm inner diameter endotrachial tube was placed endotracheally to 24 cm at the teeth. A grade 1 view was obtained. The endotracheal tube was noted to pass through the vocal cords. Chest rise was bilateral. Bilateral breath sounds were heard without air sounds in the abdomen. Mist was noted in the endotracheal tube. End-tidal CO2 measurement was positive. Endotracheal tube was retracted 2 cm after chest x-ray. Complications: None Findings: Not applicable Specimens: Not applicable Estimated blood loss: Zero Coding
[2022-03-29] MEDS: MIDAZOLAM HCL 125 MG/250 ML BAG IV SCH ×3 (09:50→19:34)
[2022-03-29] MEDS: MIDAZOLAM BOLUS FROM BAG IV PRN ×4 (09:55→20:27)
[2022-03-29] MEDS ORDERED: levETIRAcetam 1,000 MG in 0.9 % SODIUM CHLORIDE 100 ML IV STA (10:10)
[2022-03-29] MEDS ORDERED: MIDAZOLAM HCL 5 MG/ML 1 ML VIAL IV STA (10:10)
[2022-03-29] MEDS: fentaNYL BOLUS from BAG IV PRN ×2 (10:26→10:27)
[2022-03-29] MEDS ORDERED: STAT IV Infusion **Titration per Protocol STA ×2 (11:05→17:40)
[2022-03-29] MEDS ORDERED: PROPOFOL IV EMULSION 10 MG/ML 100 ML VIAL IV ONE (11:05)
[2022-03-29] MEDS: DOCUSATE SODIUM/SENNA 50/8.6MG TAB PO SCH (11:15)
[2022-03-29] MEDS ORDERED: Nursing to Pharmacy Communication SCH ×2 (11:30→18:15)
--- NOTE | 2022-03-29 12:06 | Electroencephalogram ---
EEG Procedure Note Date of Service March 29, 2022 Start / End Times Start Time: 11:15 AM End Time: 11:35 AM Referring Physician Belinda Guevara DO History Seizure-like activity Home Medication List Medication Instructions Recorded Confirmed Type No Known Home Medications 03/24/22 03/24/22 History Inpatient Medication List Acetaminophen (Acetaminophen 325 Mg Tab) 650 mg PO Q4H PRN PRN Reason: Fever Stop: 04/24/22 17:15 Last Admin: 03/25/22 20:21 Dose: 650 mg Documented By: DANNY Albuterol (Albut/Ipratrop 3mg/0.5mg Neb 3 Ml Vial) 3 ml NEB Q4R PRN; Protocol PRN Reason: Shortness Of Breath Or Wheezing Stop: 04/24/22 10:59 Last Admin: 03/27/22 16:02 Dose: 3 ml Documented By: Admin: 03/27/22 11:47 Dose: 3 ml Documented By: Admin: 03/27/22 07:56 Dose: 3 ml Documented By: KATHERYN Enoxaparin Sodium (Enoxaparin Inj 40 Mg/0.4 Ml Syr) 40 mg SQ DAILY [facility] Stop: 04/27/22 10:59 Last Admin: 03/28/22 12:04 Dose: 40 mg Documented By: CHEPE Fentanyl Citrate (Fentanyl Bolus From Bag) 50 mcg IV Q60M PRN PRN Reason: Pain or Agitation Stop: 04/07/22 16:46 Last Admin: 03/29/22 10:27 Dose: 100 mcg Documented By: CHEPE Co-signed By: TERESITA Admin: 03/29/22 10:26 Dose: 100 mcg Documented By: CHEPE Co-signed By: TERESITA Admin: 03/28/22 10:35 Dose: 100 mcg Documented By: CHEEP Co-signed By: TRISTA Admin: 03/28/22 10:15 Dose: 50 mcg Documented By: CHEPE Co-signed By: KELSY Admin: 03/24/22 17:00 Dose: 50 mcg Documented By: IONE Co-signed By: MARK Fentanyl Citrate (Fentanyl Citrate) 2,500 mcg in 250 mls @ 20 mls/hr IV .[id number] [facility]; Protocol Stop: 04/07/22 16:59 Last Titration: 03/29/22 11:15 Dose: 200 mcg/hr, 20 mls/hr Documented By: WRS Co-signed By: AMW Titration: 03/29/22 11:00 Dose: 175 mcg/hr, 17.5 mls/hr Documented By: WRS Co-signed By: AMW Titration: 03/29/22 10:50 Dose: 150 mcg/hr, 15 mls/hr Documented By: WRS Co-signed By: AMW Titration: 03/29/22 10:40 Dose: 125 mcg/hr, 12.5 mls/hr Documented By: WRS Co-signed By: AMW Admin: 03/29/22 10:29 Dose: 100 mcg/hr, 10 mls/hr Documented By: AMW Co-signed By: KGY Admin: 03/29/22 08:44 Dose: Not Given Documented By: Titration: 03/29/22 07:10 Dose: 0 mcg/hr, 0 mls/hr Documented By: WRS Co-signed By: AMW Titration: 03/29/22 07:10 Dose: 0 mcg/hr, 0 mls/hr Documented By: AMW Co-signed By: WRS Titration: 03/29/22 06:52 Dose: 100 mcg/hr, 10 mls/hr Documented By: TP Co-signed By: WRS Titration: 03/28/22 18:54 Dose: 100 mcg/hr, 10 mls/hr Documented By: WRS Co-signed By: TP Titration: 03/28/22 16:14 Dose: 100 mcg/hr, 10 mls/hr Documented By: WRS Co-signed By: AMW Admin: 03/28/22 16:14 Dose: 100 mcg/hr, 10 mls/hr Documented By: WRS Co-signed By: AMW Titration: 03/28/22 13:06 Dose: 100 mcg/hr, 10 mls/hr Documented By: WRS Co-signed By: HLK Admin: 03/28/22 12:53 Dose: Not Given Documented By: Admin: 03/28/22 12:52 Dose: Not Given Documented By: Titration: 03/28/22 12:22 Dose: 200 mcg/hr, 20 mls/hr Documented By: WRS Co-signed By: HLK Titration: 03/28/22 12:13 Dose: 125 mcg/hr, 12.5 mls/hr Documented By: WRS Co-signed By: HLK Titration: 03/28/22 12:11 Dose: 150 mcg/hr, 15 mls/hr Documented By: WRS Co-signed By: KGY Titration: 03/28/22 12:00 Dose: 175 mcg/hr, 17.5 mls/hr Documented By: WRS Co-signed By: KGY Titration: 03/28/22 10:40 Dose: 200 mcg/hr, 20 mls/hr Documented By: WRS Co-signed By: KGY Titration: 03/28/22 06:59 Dose: 100 mcg/hr, 10 mls/hr Documented By: TP Co-signed By: WRS Admin: 03/28/22 01:21 Dose: 100 mcg/hr, 10 mls/hr Documented By: TP Co-signed By: LLP Titration: 03/28/22 01:21 Dose: 100 mcg/hr, 10 mls/hr Documented By: TP Co-signed By: LLP Titration: 03/27/22 19:03 Dose: 100 mcg/hr, 10 mls/hr Documented By: TP Co-signed By: KELLY Titration: 03/27/22 07:00 Dose: 100 mcg/hr, 10 mls/hr Documented By: KELLY Co-signed By: TP Admin: 03/27/22 06:40 Dose: 100 mcg/hr, 10 mls/hr Documented By: TP Co-signed By: LLP Titration: 03/27/22 06:40 Dose: 100 mcg/hr, 10 mls/hr Documented By: TP Co-signed By: LLP Titration: 03/26/22 19:10 Dose: 100 mcg/hr, 10 mls/hr Documented By: TP Co-signed By: CAM Titration: 03/26/22 06:54 Dose: 100 mcg/hr, 10 mls/hr Documented By: CAM Co-signed By: LMP Admin: 03/26/22 06:12 Dose: 100 mcg/hr, 10 mls/hr Documented By: LMP Co-signed By: TP Titration: 03/26/22 06:12 Dose: 100 mcg/hr, 10 mls/hr Documented By: LMP Co-signed By: TP Titration: 03/25/22 19:00 Dose: 100 mcg/hr, 10 mls/hr Documented By: LMP Co-signed By: LANRE Admin: 03/25/22 12:03 Dose: 100 mcg/hr, 10 mls/hr Documented By: LANRE Co-signed By: [id number] Titration: 03/25/22 12:03 Dose: 100 mcg/hr, 10 mls/hr Documented By: CAM Co-signed By: [id number] Titration: 03/24/22 19:08 Dose: 100 mcg/hr, 10 mls/hr Documented By: LMP Co-signed By: RAN Admin: 03/24/22 16:50 Dose: 50 mcg/hr, 5 mls/hr Documented By: IONE Co-signed By: MARK Midazolam HCl (Versed) 125 mg in 250 mls @ 24 mls/hr IV .[id number] [facility]; Protocol Stop: 04/24/22 18:29 Last Admin: 03/29/22 11:22 Dose: Not Given Documented By: Titration: 03/29/22 10:27 Dose: 12 mg/hr, 24 mls/hr Documented By: WRS Co-signed By: AMW Titration: 03/29/22 10:18 Dose: 3 mg/hr, 6 mls/hr Documented By: AMW Co-signed By: KGY Admin: 03/29/22 09:50 Dose: 2 mg/hr, 4 mls/hr Documented By: WRS Co-signed By: AMW Titration: 03/29/22 08:40 Dose: 0 mg/hr, 0 mls/hr Documented By: WRS Co-signed By: AMW Titration: 03/29/22 07:10 Dose: 0 mg/hr, 0 mls/hr Documented By: AMW Co-signed By: WRS Titration: 03/29/22 06:52 Dose: 2 mg/hr, 4 mls/hr Documented By: TP Co-signed By: WRS Titration: 03/28/22 18:54 Dose: 5 mg/hr, 10 mls/hr Documented By: WRS Co-signed By: TP Titration: 03/28/22 13:58 Dose: 5 mg/hr, 10 mls/hr Documented By: WRS Co-signed By: HLK Admin: 03/28/22 13:36 Dose: Not Given Documented By: Titration: 03/28/22 13:24 Dose: 4 mg/hr, 8 mls/hr Documented By: WRS Co-signed By: AMW Titration: 03/28/22 13:06 Dose: 5 mg/hr, 10 mls/hr Documented By: WRS Co-signed By: HLK Titration: 03/28/22 12:22 Dose: 5 mg/hr, 10 mls/hr Documented By: WRS Co-signed By: HLK Admin: 03/28/22 09:46 Dose: 5 mg/hr, 10 mls/hr Documented By: WRS Co-signed By: GPF Titration: 03/28/22 09:46 Dose: 5 mg/hr, 10 mls/hr Documented By: WRS Co-signed By: GPF Titration: 03/28/22 06:59 Dose: 5 mg/hr, 10 mls/hr Documented By: TP Co-signed By: WRS Titration: 03/27/22 19:03 Dose: 5 mg/hr, 10 mls/hr Documented By: TP Co-signed By: KELLY Admin: 03/27/22 16:13 Dose: 5 mg/hr, 10 mls/hr Documented By: KELLY Co-signed By: NALINI Titration: 03/27/22 16:13 Dose: 5 mg/hr, 10 mls/hr Documented By: KELLY Co-signed By: AJB Titration: 03/27/22 07:00 Dose: 5 mg/hr, 10 mls/hr Documented By: KELLY Co-signed By: TP Titration: 03/26/22 19:10 Dose: 5 mg/hr, 10 mls/hr Documented By: TP Co-signed By: CAM Admin: 03/26/22 15:54 Dose: 5 mg/hr, 10 mls/hr Documented By: CAM Co-signed By: JLM Titration: 03/26/22 15:54 Dose: 5 mg/hr, 10 mls/hr Documented By: CAM Co-signed By: JLM Titration: 03/26/22 06:54 Dose: 5 mg/hr, 10 mls/hr Documented By: CAM Co-signed By: LMP Titration: 03/25/22 22:29 Dose: 5 mg/hr, 10 mls/hr Documented By: LMP Co-signed By: TP Admin: 03/25/22 19:30 Dose: 2 mg/hr, 4 mls/hr Documented By: DANNY Co-signed By: MONI Pantoprazole Sodium 40 mg/ (Syringe) 10 mls @ 5 mls/min IV DAILY@1100 [facility] Stop: 04/26/22 10:59 Last Admin: 03/28/22 12:06 Dose: 5 mls/min Documented By: Admin: 03/27/22 11:08 Dose: 5 mls/min Documented By: KELLY Cefazolin Sodium 2,000 mg/ (Syringe) 15 mls @ 2.5 mls/min IV Q8H [facility] Stop: 04/07/22 09:59 Last Admin: 03/29/22 02:58 Dose: 2.5 mls/min Documented By: Admin: 03/28/22 18:26 Dose: 2.5 mls/min Documented By: Admin: 03/28/22 12:06 Dose: 2.5 mls/min Documented By: CHEPE Dexmedetomidine/Sodium Chloride (Precedex) 400 mcg in 100 mls @ 34.163 mls/hr IV .Q2H56M [facility]; Protocol Stop: 04/02/22 08:14 Last Admin: 03/29/22 11:40 Dose: 1.5 mcg/kg/hr, 34.2 mls/hr Documented By: TERESITA Co-signed By: CHEPE Titration: 03/29/22 11:40 Dose: 1.5 mcg/kg/hr, 34.2 mls/hr Documented By: TERESITA Co-signed By: CHEPE Admin: 03/29/22 09:00 Dose: 1.5 mcg/kg/hr, 34.2 mls/hr Documented By: CHEPE Co-signed By: TERESITA Ketamine HCl (Ketalar / Nss) 500 mg in 500 mls @ 68.325 mls/hr IV .Q7H20M [facility]; Protocol Stop: 04/28/22 09:29 Last Titration: 03/29/22 09:54 Dose: 0.75 mg/kg/hr, 68.3 mls/hr Documented By: Admin: 03/29/22 09:45 Dose: 0.5 mg/kg/hr, 45.6 mls/hr Documented By: CHEPE Co-signed By: [id number] Propofol (Diprivan) 1,000 mg in 100 mls @ 10.932 mls/hr IV .Q9H9M [facility]; Protocol Stop: 04/01/22 11:14 Last Admin: 03/29/22 11:15 Dose: 50 mcg/kg/min, 27.3 mls/hr Documented By: CHEPE Co-signed By: TERESITA Ibuprofen (Ibuprofen 200 Mg/10 Ml Udc) 800 mg PO Q8 PRN PRN Reason: Fever Stop: 04/27/22 08:16 Last Admin: 03/28/22 12:12 Dose: 800 mg Documented By: CHEPE Lactulose (Lactulose Syrup 30 Gm/45 Ml Udp) 30 gm PO DAILY [facility] Stop: 04/26/22 10:59 Last Admin: 03/28/22 08:37 Dose: 30 gm Documented By: Admin: 03/27/22 11:08 Dose: 30 gm Documented By: KELLY Midazolam HCl (Midazolam Bolus From Bag) 2 mg IV Q60M PRN PRN Reason: Sedation Stop: 04/24/22 18:18 Last Admin: 03/29/22 10:27 Dose: 10 mg Documented By: CHEPE Co-signed By: TERESITA Admin: 03/29/22 10:11 Dose: 6 mg Documented By: CHEPE Co-signed By: TERESTIA Admin: 03/29/22 09:55 Dose: 6 mg Documented By: CHEPE Co-signed By: AMW Admin: 03/28/22 11:08 Dose: 3 mg Documented By: CHEPE Co-signed By: KGJuan J Admin: 03/28/22 11:06 Dose: 3 mg Documented By: CHEPE Co-signed By: KGJuan J Admin: 03/28/22 10:35 Dose: 5 mg Documented By: CHEPE Co-signed By: KGJuan J Admin: 03/28/22 10:15 Dose: 2 mg Documented By: CHEPE Co-signed By: CMP Miscellaneous (Icu Electrolyte Replacement Protocol) 1 each N/A BID@ [facility]; Protocol Stop: 04/04/22 05:59 Last Admin: 03/28/22 18:32 Dose: 1 each Documented By: Admin: 03/28/22 06:35 Dose: 1 each Documented By: TP Nutritional Formula (Peptamen Intense Vhp 1.0 Akash 1,000 Ml Bag) 1,000 ml OG UD [facility]; Protocol Stop: 04/26/22 13:29 Last Admin: 03/27/22 13:53 Dose: 1,000 ml Documented By: KELLY Sterile Water (Tube Feeding Water Flush) 150 ml NG Q4H [facility] Stop: 04/26/22 15:59 Last Admin: 03/29/22 08:03 Dose: Not Given Documented By: Admin: 03/29/22 04:26 Dose: 150 ml Documented By: Admin: 03/29/22 00:01 Dose: 150 ml Documented By: Admin: 03/28/22 22:12 Dose: 150 ml Documented By: Admin: 03/28/22 16:07 Dose: 150 ml Documented By: Admin: 03/28/22 12:54 Dose: 150 ml Documented By: Admin: 03/28/22 07:46 Dose: 150 ml Documented By: Admin: 03/28/22 03:50 Dose: 150 ml Documented By: Admin: 03/28/22 00:08 Dose: 150 ml Documented By: Admin: 03/27/22 20:31 Dose: 150 ml Documented By: Admin: 03/27/22 13:51 Dose: 150 ml Documented By: KELLY Discontinued Medications Albuterol (Albut/Ipratrop 3mg/0.5mg Neb 3 Ml Vial) 3 ml NEB Q4R [facility]; Protocol Stop: 04/24/22 10:59 Last Admin: 03/26/22 15:52 Dose: 3 ml Documented By: Admin: 03/26/22 11:59 Dose: 3 ml Documented By: Admin: 03/26/22 08:14 Dose: 3 ml Documented By: Admin: 03/26/22 02:24 Dose: 3 ml Documented By: Admin: 03/25/22 23:23 Dose: 3 ml Documented By: Admin: 03/25/22 20:30 Dose: 3 ml Documented By: Admin: 03/25/22 16:05 Dose: 3 ml Documented By: Admin: 03/25/22 10:57 Dose: 3 ml Documented By: ILEANA Cisatracurium Besylate (Cisatracurium Bolus From Bag) 9 mg IV ONE ONE Stop: 03/25/22 21:34 Last Admin: 03/25/22 21:48 Dose: 9 mg Documented By: LMP Co-signed By: MONI Diphenhydramine HCl (Diphenhydramine 50 Mg/Ml Vial) Confirm Administered Dose 50 mg .ROUTE .STK-MED ONE Stop: 03/24/22 14:01 Last Admin: 03/24/22 14:33 Dose: 50 mg Documented By: PEARL Diphenhydramine HCl (Diphenhydramine 50 Mg/Ml Vial) Confirm Administered Dose 50 mg .ROUTE .STK-MED ONE Stop: 03/24/22 15:13 Last Admin: 03/24/22 15:17 Dose: 25 mg Documented By: PEARL Fentanyl Citrate (Fentanyl Citrate 2,500 Mcg/250 Ml Bag) Confirm Administered Dose 2,500 mcg IV .STK-MED ONE Stop: 03/24/22 16:46 Last Admin: 03/24/22 16:56 Dose: Not Given Documented By: IONE Fentanyl Citrate (Fentanyl Bolus From Bag) 100 mcg IV NOW STA Stop: 03/24/22 16:49 Last Admin: 03/24/22 16:50 Dose: 100 mcg Documented By: IONE Co-signed By: MARK Furosemide (Furosemide Inj 20 Mg/2 Ml Vial) 20 mg IV ONE ONE Stop: 03/27/22 13:39 Last Admin: 03/27/22 13:51 Dose: 20 mg Documented By: KELLY Gadobutrol (Gadobutrol 65ml Vial) 9 ml IV ONCE ONE Stop: 03/24/22 21:18 Last Admin: 03/24/22 21:17 Dose: 9 ml Documented By: PANKAJ Heparin Sodium (Porcine) (Heparin Sod 5,000 Unit/0.5 Ml Vial) 5,000 units SQ Q12 [facility] Stop: 04/24/22 20:59 Last Admin: 03/27/22 10:17 Dose: Not Given Documented By: Admin: 03/26/22 19:29 Dose: 5,000 units Documented By: Admin: 03/26/22 07:53 Dose: 5,000 units Documented By: Admin: 03/25/22 20:50 Dose: 5,000 units Documented By: MONI Levetiracetam 1,000 mg/ Sodium (Chloride) 110 mls @ 440 mls/hr IV NOW STA Stop: 03/24/22 14:04 Last Infusion: 03/24/22 14:57 Dose: 0 mls/hr Documented By: Admin: 03/24/22 14:32 Dose: 440 mls/hr Documented By: SLB Sodium Chloride (Nss 1000ml) 1,000 mls @ 999 mls/hr IV .Q1H1M ONE Stop: 03/24/22 15:48 Last Infusion: 03/24/22 22:31 Dose: 0 mls/hr Documented By: Admin: 03/24/22 14:57 Dose: 999 mls/hr Documented By: NEETU Propofol (Diprivan) 1,000 mg in 100 mls @ 0 mls/hr IV .Q0M [facility]; Protocol Stop: 03/30/22 15:59 Last Admin: 03/29/22 08:45 Dose: Not Given Documented By: Admin: 03/29/22 08:45 Dose: Not Given Documented By: Titration: 03/29/22 07:10 Dose: 0 mcg/kg/min, 0 mls/hr Documented By: Titration: 03/29/22 07:10 Dose: 0 mcg/kg/min, 0 mls/hr Documented By: Titration: 03/29/22 06:52 Dose: 30 mcg/kg/min, 16.4 mls/hr Documented By: TP Co-signed By: WRS Admin: 03/29/22 06:12 Dose: 30 mcg/kg/min, 16.4 mls/hr Documented By: TP Co-signed By: CP Titration: 03/29/22 06:06 Dose: 30 mcg/kg/min, 16.4 mls/hr Documented By: TP Co-signed By: CP Admin: 03/29/22 00:00 Dose: 30 mcg/kg/min, 16.4 mls/hr Documented By: TP Co-signed By: SG Titration: 03/29/22 00:00 Dose: 30 mcg/kg/min, 16.4 mls/hr Documented By: TP Co-signed By: SG Titration: 03/28/22 18:54 Dose: 30 mcg/kg/min, 16.4 mls/hr Documented By: WRS Co-signed By: TP Admin: 03/28/22 18:24 Dose: 30 mcg/kg/min, 16.4 mls/hr Documented By: WRS Co-signed By: AMW Titration: 03/28/22 18:24 Dose: 30 mcg/kg/min, 16.4 mls/hr Documented By: WRS Co-signed By: AMW Titration: 03/28/22 16:54 Dose: 30 mcg/kg/min, 16.4 mls/hr Documented By: Titration: 03/28/22 15:50 Dose: 35 mcg/kg/min, 19.2 mls/hr Documented By: Titration: 03/28/22 15:00 Dose: 40 mcg/kg/min, 21.9 mls/hr Documented By: Titration: 03/28/22 14:00 Dose: 45 mcg/kg/min, 24.7 mls/hr Documented By: Titration: 03/28/22 13:34 Dose: 15 mcg/kg/min, 8.2 mls/hr Documented By: WRS Co-signed By: AMW Admin: 03/28/22 13:34 Dose: 15 mcg/kg/min, 8.2 mls/hr Documented By: WRS Co-signed By: AMW Titration: 03/28/22 13:23 Dose: 20 mcg/kg/min, 11 mls/hr Documented By: Titration: 03/28/22 13:19 Dose: 25 mcg/kg/min, 13.7 mls/hr Documented By: Titration: 03/28/22 13:14 Dose: 30 mcg/kg/min, 16.4 mls/hr Documented By: Titration: 03/28/22 13:06 Dose: 35 mcg/kg/min, 19.2 mls/hr Documented By: Admin: 03/28/22 12:54 Dose: Not Given Documented By: Admin: 03/28/22 12:54 Dose: Not Given Documented By: Admin: 03/28/22 12:53 Dose: Not Given Documented By: Titration: 03/28/22 12:23 Dose: 50 mcg/kg/min, 27.4 mls/hr Documented By: Titration: 03/28/22 12:13 Dose: 30 mcg/kg/min, 16.4 mls/hr Documented By: Titration: 03/28/22 12:10 Dose: 35 mcg/kg/min, 19.2 mls/hr Documented By: Titration: 03/28/22 12:03 Dose: 40 mcg/kg/min, 21.9 mls/hr Documented By: Titration: 03/28/22 11:50 Dose: 45 mcg/kg/min, 24.7 mls/hr Documented By: Admin: 03/28/22 10:45 Dose: 50 mcg/kg/min, 27.4 mls/hr Documented By: WRS Co-signed By: CMP Titration: 03/28/22 10:45 Dose: 50 mcg/kg/min, 27.4 mls/hr Documented By: WRS Co-signed By: CMP Titration: 03/28/22 10:15 Dose: 50 mcg/kg/min, 27.4 mls/hr Documented By: WRS Co-signed By: CMP Titration: 03/28/22 06:59 Dose: 30 mcg/kg/min, 16.4 mls/hr Documented By: TP Co-signed By: WRS Admin: 03/28/22 06:38 Dose: 30 mcg/kg/min, 16.4 mls/hr Documented By: TP Co-signed By: LLP Titration: 03/28/22 06:38 Dose: 30 mcg/kg/min, 16.4 mls/hr Documented By: TP Co-signed By: LLP Admin: 03/28/22 01:21 Dose: 30 mcg/kg/min, 16.4 mls/hr Documented By: TP Co-signed By: LLP Titration: 03/28/22 01:21 Dose: 30 mcg/kg/min, 16.4 mls/hr Documented By: TP Co-signed By: LLP Admin: 03/27/22 19:17 Dose: 30 mcg/kg/min, 16.4 mls/hr Documented By: TP Co-signed By: LLP Titration: 03/27/22 19:17 Dose: 30 mcg/kg/min, 16.4 mls/hr Documented By: TP Co-signed By: LLP Titration: 03/27/22 19:03 Dose: 30 mcg/kg/min, 16.4 mls/hr Documented By: TP Co-signed By: KELLY Admin: 03/27/22 18:42 Dose: Not Given Documented By: Admin: 03/27/22 14:25 Dose: Not Given Documented By: Admin: 03/27/22 14:25 Dose: Not Given Documented By: Admin: 03/27/22 14:24 Dose: Not Given Documented By: Admin: 03/27/22 14:24 Dose: Not Given Documented By: Admin: 03/27/22 14:24 Dose: Not Given Documented By: Titration: 03/27/22 14:22 Dose: 30 mcg/kg/min, 16.4 mls/hr Documented By: KELLY Co-signed By: CADENCE Admin: 03/27/22 14:22 Dose: Not Given Documented By: Admin: 03/27/22 14:22 Dose: 30 mcg/kg/min, 16.4 mls/hr Documented By: KELLY Co-signed By: CADENCE Titration: 03/27/22 13:47 Dose: 30 mcg/kg/min, 16.4 mls/hr Documented By: Admin: 03/27/22 10:06 Dose: 40 mcg/kg/min, 21.9 mls/hr Documented By: KELLY Co-signed By: ES Titration: 03/27/22 10:06 Dose: 40 mcg/kg/min, 21.9 mls/hr Documented By: KELLY Co-signed By: ES Titration: 03/27/22 07:00 Dose: 40 mcg/kg/min, 21.9 mls/hr Documented By: KELLY Co-signed By: TP Admin: 03/27/22 05:39 Dose: 40 mcg/kg/min, 21.9 mls/hr Documented By: TP Co-signed By: LLP Titration: 03/27/22 04:58 Dose: 40 mcg/kg/min, 21.9 mls/hr Documented By: TP Co-signed By: LLP Admin: 03/27/22 00:24 Dose: 40 mcg/kg/min, 21.9 mls/hr Documented By: TP Co-signed By: LLP Titration: 03/27/22 00:02 Dose: 40 mcg/kg/min, 21.9 mls/hr Documented By: TP Co-signed By: LLP Admin: 03/26/22 19:28 Dose: 40 mcg/kg/min, 21.9 mls/hr Documented By: TP Co-signed By: LLP Titration: 03/26/22 19:10 Dose: 40 mcg/kg/min, 21.9 mls/hr Documented By: TP Co-signed By: CAM Admin: 03/26/22 14:15 Dose: 40 mcg/kg/min, 21.9 mls/hr Documented By: CAM Co-signed By: JLM Titration: 03/26/22 14:15 Dose: 40 mcg/kg/min, 21.9 mls/hr Documented By: CAM Co-signed By: JLM Admin: 03/26/22 10:08 Dose: Not Given Documented By: Admin: 03/26/22 10:07 Dose: Not Given Documented By: Titration: 03/26/22 09:41 Dose: 40 mcg/kg/min, 21.9 mls/hr Documented By: CAM Co-signed By: JLM Admin: 03/26/22 09:41 Dose: 40 mcg/kg/min, 21.9 mls/hr Documented By: CAM Co-signed By: JLM Titration: 03/26/22 06:54 Dose: 40 mcg/kg/min, 21.9 mls/hr Documented By: CAM Co-signed By: LMP Admin: 03/26/22 06:32 Dose: Not Given Documented By: Admin: 03/26/22 06:31 Dose: Not Given Documented By: Admin: 03/26/22 06:31 Dose: Not Given Documented By: Admin: 03/26/22 06:30 Dose: Not Given Documented By: Admin: 03/26/22 06:30 Dose: Not Given Documented By: Admin: 03/26/22 06:29 Dose: Not Given Documented By: Admin: 03/26/22 06:29 Dose: Not Given Documented By: Admin: 03/26/22 05:37 Dose: 40 mcg/kg/min, 21.9 mls/hr Documented By: LMP Co-signed By: TP Titration: 03/26/22 05:37 Dose: 45 mcg/kg/min, 24.7 mls/hr Documented By: LMP Co-signed By: TP Admin: 03/26/22 02:07 Dose: 45 mcg/kg/min, 24.7 mls/hr Documented By: LMP Co-signed By: TP Titration: 03/26/22 02:07 Dose: 45 mcg/kg/min, 24.7 mls/hr Documented By: LMP Co-signed By: TP Admin: 03/25/22 22:24 Dose: 45 mcg/kg/min, 24.7 mls/hr Documented By: TP Co-signed By: LMP Titration: 03/25/22 22:01 Dose: 45 mcg/kg/min, 24.7 mls/hr Documented By: TP Co-signed By: LMP Titration: 03/25/22 19:00 Dose: 45 mcg/kg/min, 24.7 mls/hr Documented By: LMP Co-signed By: CAM Admin: 03/25/22 17:58 Dose: 45 mcg/kg/min, 24.7 mls/hr Documented By: CAM Co-signed By: JLM Titration: 03/25/22 17:48 Dose: 45 mcg/kg/min, 24.7 mls/hr Documented By: CAM Co-signed By: JLM Admin: 03/25/22 13:45 Dose: 45 mcg/kg/min, 24.7 mls/hr Documented By: CAM Co-signed By: [id number] Titration: 03/25/22 13:34 Dose: 45 mcg/kg/min, 24.7 mls/hr Documented By: CAM Co-signed By: [id number] Admin: 03/25/22 09:31 Dose: 45 mcg/kg/min, 24.7 mls/hr Documented By: CAM Co-signed By: JLM Titration: 03/25/22 09:31 Dose: 45 mcg/kg/min, 24.7 mls/hr Documented By: CAM Co-signed By: JLM Admin: 03/25/22 05:38 Dose: 45 mcg/kg/min, 24.7 mls/hr Documented By: LMP Co-signed By: TP Titration: 03/25/22 05:30 Dose: 45 mcg/kg/min, 24.7 mls/hr Documented By: LMP Co-signed By: TP Admin: 03/25/22 01:27 Dose: 45 mcg/kg/min, 24.7 mls/hr Documented By: LMP Co-signed By: TP Titration: 03/25/22 01:27 Dose: 45 mcg/kg/min, 24.7 mls/hr Documented By: LMP Co-signed By: TP Admin: 03/24/22 21:45 Dose: 45 mcg/kg/min, 24.7 mls/hr Documented By: LMP Co-signed By: TP Titration: 03/24/22 20:09 Dose: 45 mcg/kg/min, 24.7 mls/hr Documented By: LMP Co-signed By: TP Titration: 03/24/22 19:08 Dose: 45 mcg/kg/min, 24.7 mls/hr Documented By: LMP Co-signed By: [email or web address] Titration: 03/24/22 16:55 Dose: 50 mcg/kg/min, 27.4 mls/hr Documented By: Titration: 03/24/22 16:47 Dose: 45 mcg/kg/min, 24.7 mls/hr Documented By: Titration: 03/24/22 16:38 Dose: 40 mcg/kg/min, 21.9 mls/hr Documented By: Titration: 03/24/22 16:35 Dose: 35 mcg/kg/min, 19.2 mls/hr Documented By: Titration: 03/24/22 16:32 Dose: 30 mcg/kg/min, 16.4 mls/hr Documented By: Titration: 03/24/22 16:29 Dose: 25 mcg/kg/min, 13.7 mls/hr Documented By: Admin: 03/24/22 16:00 Dose: 20 mcg/kg/min, 11 mls/hr Documented By: IONE Co-signed By: MARK Levetiracetam 500 mg/ Sodium (Chloride) 105 mls @ 440 mls/hr IV BID GAURAV Stop: 04/24/22 08:59 Last Infusion: 03/25/22 09:32 Dose: 0 mls/hr Documented By: Admin: 03/25/22 07:37 Dose: 440 mls/hr Documented By: LANRE Sodium Chloride (Nss 1000ml) 1,000 mls @ 999 mls/hr IV .Q1H1M ONE Stop: 03/24/22 18:27 Last Infusion: 03/24/22 22:31 Dose: 0 mls/hr Documented By: Admin: 03/24/22 17:25 Dose: 999 mls/hr Documented By: IONE Parenteral Electrolytes (Normosol-R) 1,000 mls @ 120 mls/hr IV .Q8H20M GAURAV Stop: 04/23/22 18:28 Last Admin: 03/24/22 22:30 Dose: Not Given Documented By: LMP Azithromycin 500 mg/ Dextrose 255 mls @ 127.5 mls/hr IV NOW STA Stop: 03/24/22 20:34 Last Admin: 03/24/22 22:37 Dose: Not Given Documented By: LMP Parenteral Electrolytes (Normosol-R) 1,000 mls @ 999 mls/hr IV .Q1H1M ONE Stop: 03/24/22 19:35 Last Admin: 03/24/22 22:30 Dose: Not Given Documented By: LMP Acyclovir Sodium 900 mg/ (Dextrose) 268 mls @ 250 mls/hr IV Q8H GAURAV Stop: 03/26/22 19:59 Last Infusion: 03/25/22 04:49 Dose: 0 mls/hr Documented By: Admin: 03/25/22 03:23 Dose: 250 mls/hr Documented By: Infusion: 03/24/22 23:25 Dose: 0 mls/hr Documented By: Admin: 03/24/22 22:16 Dose: 250 mls/hr Documented By: LMP Ceftriaxone Sodium 2,000 mg/ (Dextrose) 70 mls @ 100 mls/hr IV BID GAURAV; Protocol Stop: 04/03/22 20:59 Last Infusion: 03/26/22 08:58 Dose: 0 mls/hr Documented By: Admin: 03/26/22 07:52 Dose: 100 mls/hr Documented By: Infusion: 03/25/22 21:45 Dose: 0 mls/hr Documented By: Admin: 03/25/22 20:54 Dose: 100 mls/hr Documented By: Infusion: 03/25/22 09:32 Dose: 0 mls/hr Documented By: Admin: 03/25/22 07:43 Dose: 100 mls/hr Documented By: Infusion: 03/25/22 00:59 Dose: 0 mls/hr Documented By: Admin: 03/25/22 00:08 Dose: 100 mls/hr Documented By: LMP Lactated Ringer's (Lr) 1,000 mls @ 999 mls/hr IV .Q1H1M ONE Stop: 03/24/22 19:43 Last Infusion: 03/24/22 19:49 Dose: 0 mls/hr Documented By: Admin: 03/24/22 18:30 Dose: 999 mls/hr Documented By: LMP Dexamethasone 6 mg/ Syringe 1.5 mls @ 1 mls/min IV Q8H GAURAV Stop: 04/23/22 18:59 Last Admin: 03/25/22 03:23 Dose: 1 mls/min Documented By: Admin: 03/24/22 20:09 Dose: 1 mls/min Documented By: LMP Vancomycin HCl 2,250 mg/ (Sodium Chloride) 545 mls @ 200 mls/hr IV TODAY@1930 GAURAV; Protocol Stop: 03/25/22 00:44 Last Infusion: 03/25/22 01:17 Dose: 0 mls/hr Documented By: Admin: 03/24/22 22:15 Dose: 200 mls/hr Documented By: LMP Lactated Ringer's (Lr) 1,000 mls @ 125 mls/hr IV .Q8H ONE Stop: 03/25/22 05:35 Last Infusion: 03/25/22 06:18 Dose: 0 mls/hr Documented By: Admin: 03/24/22 22:17 Dose: 125 mls/hr Documented By: LMP Azithromycin 500 mg/ Dextrose 255 mls @ 127.5 mls/hr IV NOW STA Stop: 03/24/22 23:47 Last Infusion: 03/25/22 00:17 Dose: 0 mls/hr Documented By: Admin: 03/24/22 22:15 Dose: 127.5 mls/hr Documented By: LMP Parenteral Electrolytes (Normosol-R) 1,000 mls @ 125 mls/hr IV .Q8H GAURAV Stop: 04/24/22 08:29 Last Admin: 03/27/22 09:00 Dose: Not Given Documented By: Infusion: 03/27/22 08:35 Dose: 0 mls/hr Documented By: Infusion: 03/27/22 07:58 Dose: 0 mls/hr Documented By: Infusion: 03/27/22 07:00 Dose: 125 mls/hr Documented By: Admin: 03/27/22 01:47 Dose: 125 mls/hr Documented By: Infusion: 03/27/22 01:47 Dose: 125 mls/hr Documented By: Admin: 03/26/22 18:26 Dose: 125 mls/hr Documented By: Infusion: 03/26/22 17:37 Dose: 125 mls/hr Documented By: Admin: 03/26/22 09:37 Dose: 125 mls/hr Documented By: Infusion: 03/26/22 08:53 Dose: 125 mls/hr Documented By: Admin: 03/26/22 00:53 Dose: 125 mls/hr Documented By: Infusion: 03/26/22 00:37 Dose: 125 mls/hr Documented By: Admin: 03/25/22 16:37 Dose: 125 mls/hr Documented By: Infusion: 03/25/22 16:37 Dose: 125 mls/hr Documented By: Admin: 03/25/22 08:55 Dose: 125 mls/hr Documented By: LANRE Calcium Gluconate 1,000 mg/ (Dextrose) 60 mls @ 240 mls/hr IV NOW ONE Stop: 03/25/22 09:14 Last Infusion: 03/25/22 09:32 Dose: 0 mls/hr Documented By: Admin: 03/25/22 08:55 Dose: 240 mls/hr Documented By: LANRE Azithromycin 250 mg/ Dextrose 252.5 mls @ 125 mls/hr IV DAILY@2200 GAURAV Stop: 04/01/22 21:59 Last Infusion: 03/26/22 23:41 Dose: 0 mls/hr Documented By: Admin: 03/26/22 21:39 Dose: 125 mls/hr Documented By: Infusion: 03/26/22 01:04 Dose: 0 mls/hr Documented By: Admin: 03/25/22 21:41 Dose: 125 mls/hr Documented By: LMP Vancomycin HCl 1,000 mg/ (Sodium Chloride) 270 mls @ 200 mls/hr IV NOW STA Stop: 03/25/22 14:04 Last Infusion: 03/25/22 16:56 Dose: 0 mls/hr Documented By: Admin: 03/25/22 13:43 Dose: 200 mls/hr Documented By: CAM Parenteral Electrolytes (Normosol-R) 500 mls @ 999 mls/hr IV .Q31M ONE Stop: 03/25/22 17:02 Last Infusion: 03/25/22 17:15 Dose: 0 mls/hr Documented By: Admin: 03/25/22 16:41 Dose: 999 mls/hr Documented By: CAM Cisatracurium Besylate 40 mg/ (Dextrose) 100 mls @ 41.04 mls/hr IV .Q2H27M [facility]; Protocol Stop: 03/25/22 23:59 Last Admin: 03/26/22 01:38 Dose: Not Given Documented By: Titration: 03/26/22 01:37 Dose: 0 mcg/kg/min, 0 mls/hr Documented By: Titration: 03/25/22 23:40 Dose: 4 mcg/kg/min, 41 mls/hr Documented By: Admin: 03/25/22 22:42 Dose: 3 mcg/kg/min, 30.8 mls/hr Documented By: LMP Co-signed By: TP Titration: 03/25/22 22:42 Dose: 3 mcg/kg/min, 30.8 mls/hr Documented By: LMP Co-signed By: TP Titration: 03/25/22 22:29 Dose: 3 mcg/kg/min, 30.8 mls/hr Documented By: Titration: 03/25/22 21:37 Dose: 2 mcg/kg/min, 20.5 mls/hr Documented By: Titration: 03/25/22 19:00 Dose: 1 mcg/kg/min, 10.3 mls/hr Documented By: LMP Co-signed By: CAM Admin: 03/25/22 18:44 Dose: 1 mcg/kg/min, 10.3 mls/hr Documented By: CAM Co-signed By: DANNY Cisatracurium Besylate 80 mg/ (Dextrose) 200 mls @ 0 mls/hr IV .Q0M [facility]; Protocol Stop: 04/25/22 00:00 Last Admin: 03/27/22 11:39 Dose: Not Given Documented By: Titration: 03/27/22 11:37 Dose: 0 mcg/kg/min, 0 mls/hr Documented By: Admin: 03/27/22 11:26 Dose: Not Given Documented By: Titration: 03/27/22 11:09 Dose: 0 mcg/kg/min, 0 mls/hr Documented By: Titration: 03/27/22 07:00 Dose: 2.5 mcg/kg/min, 25.7 mls/hr Documented By: KELLY Co-signed By: TP Titration: 03/27/22 06:04 Dose: 2.5 mcg/kg/min, 25.7 mls/hr Documented By: Admin: 03/27/22 05:38 Dose: 2.5 mcg/kg/min, 25.7 mls/hr Documented By: TP Co-signed By: LLP Titration: 03/27/22 05:38 Dose: 2.5 mcg/kg/min, 25.7 mls/hr Documented By: TP Co-signed By: LLP Admin: 03/27/22 03:47 Dose: Not Given Documented By: Admin: 03/27/22 03:46 Dose: Not Given Documented By: Titration: 03/27/22 02:46 Dose: 2.5 mcg/kg/min, 25.7 mls/hr Documented By: Admin: 03/27/22 01:44 Dose: Not Given Documented By: Admin: 03/26/22 19:28 Dose: 2.7 mcg/kg/min, 27.7 mls/hr Documented By: TP Co-signed By: LLP Titration: 03/26/22 19:28 Dose: 2.7 mcg/kg/min, 27.7 mls/hr Documented By: TP Co-signed By: LLP Titration: 03/26/22 19:10 Dose: 2.7 mcg/kg/min, 27.7 mls/hr Documented By: TP Co-signed By: CAM Titration: 03/26/22 14:11 Dose: 2.7 mcg/kg/min, 27.7 mls/hr Documented By: Admin: 03/26/22 13:04 Dose: 3 mcg/kg/min, 30.8 mls/hr Documented By: CAM Co-signed By: JLM Titration: 03/26/22 13:04 Dose: 3 mcg/kg/min, 30.8 mls/hr Documented By: CAM Co-signed By: JLM Admin: 03/26/22 10:01 Dose: 3 mcg/kg/min, 30.8 mls/hr Documented By: CAM Co-signed By: CADENCE Titration: 03/26/22 08:30 Dose: 3.5 mcg/kg/min, 35.9 mls/hr Documented By: Titration: 03/26/22 06:54 Dose: 4 mcg/kg/min, 41 mls/hr Documented By: CAM Co-signed By: LMP Admin: 03/26/22 01:34 Dose: 4 mcg/kg/min, 41 mls/hr Documented By: LMP Co-signed By: TP Acetaminophen (Ofirmev) 1,000 mg in 100 mls @ 400 mls/hr IV NOW STA Stop: 03/26/22 00:20 Last Infusion: 03/26/22 00:52 Dose: 0 mls/hr Documented By: Admin: 03/26/22 00:12 Dose: 400 mls/hr Documented By: LMP Vancomycin HCl 1,000 mg/ (Sodium Chloride) 270 mls @ 200 mls/hr IV NOW STA Stop: 03/26/22 10:43 Last Infusion: 03/26/22 11:25 Dose: 0 mls/hr Documented By: Admin: 03/26/22 10:04 Dose: 200 mls/hr Documented By: LANRE Cefepime HCl 2,000 mg/ Syringe 20 mls @ 5 mls/min IV Q8H GAURAV Stop: 04/02/22 09:59 Last Admin: 03/27/22 01:53 Dose: 5 mls/min Documented By: Admin: 03/26/22 17:33 Dose: 5 mls/min Documented By: Admin: 03/26/22 11:03 Dose: 5 mls/min Documented By: CAM Metronidazole (Flagyl) 500 mg in 100 mls @ 100 mls/hr IV Q8H GAURAV Stop: 04/02/22 09:59 Last Infusion: 03/27/22 02:54 Dose: 0 mls/hr Documented By: Admin: 03/27/22 01:54 Dose: 100 mls/hr Documented By: Infusion: 03/26/22 18:38 Dose: 0 mls/hr Documented By: Admin: 03/26/22 17:38 Dose: 100 mls/hr Documented By: Infusion: 03/26/22 14:12 Dose: 0 mls/hr Documented By: Admin: 03/26/22 11:12 Dose: 100 mls/hr Documented By: LANRE Lactated Ringer's (Lr) 500 mls @ 999 mls/hr IV .Q31M ONE Stop: 03/26/22 13:22 Last Infusion: 03/26/22 14:27 Dose: 0 mls/hr Documented By: Admin: 03/26/22 13:56 Dose: 999 mls/hr Documented By: LANRE Acetaminophen (Ofirmev) 1,000 mg in 100 mls @ 400 mls/hr IV Q8H PRN PRN Reason: fever Stop: 03/29/22 13:34 Last Infusion: 03/27/22 16:19 Dose: 0 mls/hr Documented By: Admin: 03/27/22 15:21 Dose: 400 mls/hr Documented By: Infusion: 03/27/22 08:35 Dose: 0 mls/hr Documented By: Admin: 03/27/22 08:18 Dose: 400 mls/hr Documented By: Infusion: 03/26/22 21:55 Dose: 0 mls/hr Documented By: Admin: 03/26/22 21:40 Dose: 400 mls/hr Documented By: Infusion: 03/26/22 14:16 Dose: 0 mls/hr Documented By: Admin: 03/26/22 13:57 Dose: 400 mls/hr Documented By: LANRE Ceftriaxone Sodium 2,000 mg/ (Dextrose) 70 mls @ 100 mls/hr IV Q12H [facility]; Protocol Stop: 04/06/22 10:59 Last Infusion: 03/28/22 00:00 Dose: 0 mls/hr Documented By: Admin: 03/27/22 23:18 Dose: 100 mls/hr Documented By: Infusion: 03/27/22 11:53 Dose: 0 mls/hr Documented By: Admin: 03/27/22 11:08 Dose: 100 mls/hr Documented By: KELLY Potassium Phosphate 18 mmol/ (Sodium Chloride) 506 mls @ 88 mls/hr IV ONE ONE Stop: 03/27/22 18:14 Last Infusion: 03/27/22 18:42 Dose: 0 mls/hr Documented By: Admin: 03/27/22 12:27 Dose: 88 mls/hr Documented By: KELLY Dexmedetomidine/Sodium Chloride (Precedex) 200 mcg in 50 mls @ 9.03 mls/hr IV .Q5H33M [facility]; Protocol Stop: 04/01/22 11:14 Last Titration: 03/29/22 09:16 Dose: 0 mcg/kg/hr, 0 mls/hr Documented By: Titration: 03/29/22 08:04 Dose: 1 mcg/kg/hr, 22.6 mls/hr Documented By: Admin: 03/29/22 07:23 Dose: 1.5 mcg/kg/hr, 33.9 mls/hr Documented By: AMW Co-signed By: WRS Titration: 03/29/22 07:23 Dose: 1 mcg/kg/hr, 22.6 mls/hr Documented By: AMW Co-signed By: WRS Titration: 03/29/22 06:52 Dose: 1 mcg/kg/hr, 22.6 mls/hr Documented By: TP Co-signed By: WRS Admin: 03/29/22 06:34 Dose: 0.8 mcg/kg/hr, 18.1 mls/hr Documented By: TP Co-signed By: SG Titration: 03/29/22 04:04 Dose: 0.8 mcg/kg/hr, 18.1 mls/hr Documented By: TP Co-signed By: SG Admin: 03/29/22 01:18 Dose: 0.8 mcg/kg/hr, 18.1 mls/hr Documented By: TP Co-signed By: SG Titration: 03/29/22 01:05 Dose: 0.8 mcg/kg/hr, 18.1 mls/hr Documented By: TP Co-signed By: SG Admin: 03/28/22 22:19 Dose: 0.8 mcg/kg/hr, 18.1 mls/hr Documented By: TP Co-signed By: JT Titration: 03/28/22 21:44 Dose: 0.8 mcg/kg/hr, 18.1 mls/hr Documented By: TP Co-signed By: JT Admin: 03/28/22 18:58 Dose: 0.8 mcg/kg/hr, 18.1 mls/hr Documented By: AMW Co-signed By: TP Titration: 03/28/22 18:58 Dose: 0.8 mcg/kg/hr, 18.1 mls/hr Documented By: AMW Co-signed By: TP Titration: 03/28/22 18:54 Dose: 0.8 mcg/kg/hr, 18.1 mls/hr Documented By: WRS Co-signed By: TP Admin: 03/28/22 16:15 Dose: 0.8 mcg/kg/hr, 18.1 mls/hr Documented By: WRS Co-signed By: AMW Titration: 03/28/22 16:15 Dose: 0.8 mcg/kg/hr, 18.1 mls/hr Documented By: WRS Co-signed By: AMW Titration: 03/28/22 14:00 Dose: 0.8 mcg/kg/hr, 18.1 mls/hr Documented By: Admin: 03/28/22 13:35 Dose: 0.7 mcg/kg/hr, 15.8 mls/hr Documented By: WRS Co-signed By: AMW Titration: 03/28/22 13:35 Dose: 0.7 mcg/kg/hr, 15.8 mls/hr Documented By: WRS Co-signed By: AMW Titration: 03/28/22 13:14 Dose: 0.7 mcg/kg/hr, 15.8 mls/hr Documented By: Titration: 03/28/22 13:06 Dose: 0.6 mcg/kg/hr, 13.5 mls/hr Documented By: Titration: 03/28/22 12:06 Dose: 0.5 mcg/kg/hr, 11.3 mls/hr Documented By: Admin: 03/28/22 11:30 Dose: 0.4 mcg/kg/hr, 9 mls/hr Documented By: CMP Co-signed By: HLK Norepinephrine Bitartrate (Levophed/D5w) 4 mg in 250 mls @ 16.931 mls/hr IV .[id number] [facility]; Protocol Stop: 04/27/22 14:14 Last Titration: 03/29/22 07:10 Dose: 0 mcg/kg/min, 0 mls/hr Documented By: Titration: 03/29/22 07:10 Dose: 0 mcg/kg/min, 0 mls/hr Documented By: Titration: 03/29/22 06:52 Dose: 0.02 mcg/kg/min, 6.8 mls/hr Documented By: MONI Co-signed By: CHEPE Admin: 03/29/22 06:32 Dose: 0.02 mcg/kg/min, 6.8 mls/hr Documented By: TP Co-signed By: SG Titration: 03/29/22 06:32 Dose: 0.02 mcg/kg/min, 6.8 mls/hr Documented By: TP Co-signed By: SG Titration: 03/28/22 18:54 Dose: 0.02 mcg/kg/min, 6.8 mls/hr Documented By: CHEPE Co-signed By: MONI Admin: 03/28/22 14:13 Dose: 0.02 mcg/kg/min, 6.8 mls/hr Documented By: CHEPE Co-signed By: TERESITA Levetiracetam 1,000 mg/ Sodium (Chloride) 110 mls @ 440 mls/hr IV NOW STA Stop: 03/29/22 10:24 Last Infusion: 03/29/22 11:14 Dose: 0 mls/hr Documented By: Admin: 03/29/22 10:34 Dose: 440 mls/hr Documented By: TERESITA Ibuprofen (Ibuprofen 200 Mg/10 Ml Udc) 800 mg PO NOW STA Stop: 03/27/22 22:13 Last Admin: 03/27/22 22:25 Dose: 800 mg Documented By: TP Influenza Virus Vaccine Quadrival (Fluarix Quadrivalent 0.5 Ml Syr) 0.5 ml IM .ONCE ONE Stop: 03/24/22 20:58 Last Admin: 03/25/22 20:48 Dose: Not Given Documented By: TP Ketamine HCl (Ketamine Hcl Inj 50 Mg/Ml 10 Ml Vial) Confirm Administered Dose 500 mg .ROUTE .STK-MED ONE Stop: 03/24/22 13:57 Last Admin: 03/24/22 14:32 Dose: Not Given Documented By: PEARL Ketamine HCl (Ketamine Hcl Inj 50 Mg/Ml 10 Ml Vial) 100 mg IV NOW STA Stop: 03/24/22 14:19 Last Admin: 03/24/22 14:31 Dose: 100 mg Documented By: SLB Ketamine HCl (Ketamine Hcl Inj 50 Mg/Ml 10 Ml Vial) 100 mg IV NOW STA Stop: 03/24/22 14:49 Last Admin: 03/24/22 14:56 Dose: 100 mg Documented By: PEARL Ketamine HCl (Ketamine Hcl Inj 50 Mg/Ml 10 Ml Vial) Confirm Administered Dose 500 mg .ROUTE .STK-MED ONE Stop: 03/29/22 07:09 Last Admin: 03/29/22 07:54 Dose: Not Given Documented By: CHEPE Ketamine HCl (Ketamine Hcl Inj 50 Mg/Ml 10 Ml Vial) 50 mg IV NOW STA Stop: 03/29/22 07:11 Last Admin: 03/29/22 07:11 Dose: 50 mg Documented By: TERESITA Ketamine HCl (Ketamine Hcl Inj 50 Mg/Ml 10 Ml Vial) 50 mg IV NOW STA Stop: 03/29/22 07:14 Last Admin: 03/29/22 07:13 Dose: 50 mg Documented By: CHEPE Levalbuterol HCl (Levalbuterol 1.25mg/0.5ml Neb) 1.25 mg NEB Q4R PRN; Protocol PRN Reason: Shortness Of Breath Or Wheezing Stop: 04/25/22 18:59 Last Admin: 03/26/22 20:47 Dose: 1.25 mg Documented By: MARY Lidocaine HCl (Lidocaine 1% Local 20 Ml Vial) Confirm Administered Dose 20 ml .ROUTE .STK-MED ONE Stop: 03/27/22 10:34 Last Admin: 03/27/22 11:08 Dose: 20 ml Documented By: KELLY Lorazepam (Lorazepam 1 Mg/1 Ml Syr) Confirm Administered Dose 1 mg .ROUTE .STK- MED ONE Stop: 03/24/22 13:47 Last Admin: 03/24/22 14:32 Dose: Not Given Documented By: PEARL Lorazepam (Lorazepam 1 Mg/1 Ml Syr) Confirm Administered Dose 1 mg .ROUTE .STK- MED ONE Stop: 03/24/22 13:49 Last Admin: 03/24/22 14:32 Dose: Not Given Documented By: PEARL Lorazepam (Lorazepam 1 Mg/1 Ml Syr) Confirm Administered Dose 2 mg .ROUTE .STK- MED ONE Stop: 03/24/22 13:52 Last Admin: 03/24/22 14:32 Dose: Not Given Documented By: PEARL Lorazepam (Lorazepam 1 Mg/1 Ml Syr) 2 mg IV NOW STA; Protocol Stop: 03/24/22 14:19 Last Admin: 03/24/22 14:32 Dose: 2 mg Documented By: PEARL Lorazepam (Lorazepam 1 Mg/1 Ml Syr) 2 mg IV NOW STA; Protocol Stop: 03/24/22 14:19 Last Admin: 03/24/22 14:31 Dose: 2 mg Documented By: PEARL Magnesium Oxide (Magnesium Oxide 400 Mg Tab) 400 mg NG Q4H [facility] Stop: 03/28/22 01:16 Last Admin: 03/28/22 01:21 Dose: 400 mg Documented By: Admin: 03/27/22 22:01 Dose: 400 mg Documented By: MONI Magnesium Oxide (Magnesium Oxide 400 Mg Tab) 400 mg NG Q4H [facility] Stop: 03/28/22 11:01 Last Admin: 03/28/22 12:04 Dose: 400 mg Documented By: Admin: 03/28/22 07:12 Dose: 400 mg Documented By: CHEPE Magnesium Oxide (Magnesium Oxide 400 Mg Tab) 400 mg NG Q4H [facility] Stop: 03/28/22 22:46 Last Admin: 03/28/22 22:19 Dose: 400 mg Documented By: Admin: 03/28/22 18:57 Dose: 400 mg Documented By: TERESITA Metoprolol Tartrate (Metoprolol Tartrate 1 Mg/Ml Vial) Confirm Administered Dose 5 mg IV .STK-MED ONE Stop: 03/25/22 16:34 Last Admin: 03/25/22 16:39 Dose: Not Given Documented By: LANRE Metoprolol Tartrate (Metoprolol Tartrate 1 Mg/Ml Vial) 2.5 mg IV NOW STA Stop: 03/25/22 16:33 Last Admin: 03/25/22 16:38 Dose: 2.5 mg Documented By: LANRE Midazolam HCl (Midazolam Hcl 1 Mg/Ml 2ml Vial) 2 mg IV Q2H PRN PRN Reason: Agitation Stop: 04/24/22 16:24 Last Admin: 03/25/22 18:35 Dose: 2 mg Documented By: Admin: 03/25/22 17:00 Dose: 2 mg Documented By: LANRE Midazolam HCl (Midazolam Hcl 5 Mg/Ml 1 Ml Vial) 6 mg IV NOW STA Stop: 03/29/22 10:11 Last Admin: 03/29/22 11:14 Dose: Not Given Documented By: CHEPE Miscellaneous (Rapid Sequence Induction Bag) Confirm Administered Dose 1 each .ROUTE .STK-MED ONE Stop: 03/24/22 15:37 Last Admin: 03/24/22 16:19 Dose: Not Given Documented By: LOLA Marx (Icu Protocol For Hyperglycemia) 1 each N/A ACHS [facility] Stop: 03/26/22 20:59 Last Admin: 03/26/22 14:11 Dose: Not Given Documented By: Admin: 03/26/22 11:12 Dose: Not Given Documented By: Admin: 03/26/22 07:32 Dose: Not Given Documented By: Admin: 03/25/22 21:07 Dose: Not Given Documented By: Admin: 03/25/22 17:02 Dose: Not Given Documented By: Admin: 03/25/22 12:02 Dose: Not Given Documented By: Admin: 03/25/22 07:34 Dose: Not Given Documented By: Admin: 03/24/22 22:38 Dose: 1 each Documented By: DANNY Multi-Ingredient Cream (Artificial Tears Op Oint 3.5 Gm Tube) 1 appln OP Q4H [facility] Stop: 04/24/22 18:29 Last Admin: 03/27/22 11:09 Dose: 1 appln Documented By: Admin: 03/27/22 06:26 Dose: 1 appln Documented By: Admin: 03/27/22 02:47 Dose: 1 appln Documented By: Admin: 03/26/22 21:41 Dose: 1 appln Documented By: Admin: 03/26/22 17:42 Dose: 1 appln Documented By: Admin: 03/26/22 13:57 Dose: 1 appln Documented By: Admin: 03/26/22 11:03 Dose: 1 appln Documented By: Admin: 03/26/22 06:19 Dose: 1 appln Documented By: Admin: 03/26/22 04:53 Dose: 1 appln Documented By: Admin: 03/25/22 23:05 Dose: 1 appln Documented By: Admin: 03/25/22 20:51 Dose: 1 appln Documented By: TP Norepinephrine Bitartrate (Norepinephrine/D5w 4 Mg/250 Ml) Confirm Administered Dose 4 mg IV .STK-MED ONE Stop: 03/28/22 14:03 Last Admin: 03/28/22 14:13 Dose: Not Given Documented By: CHEPE Potassium Chloride (Potassium Chloride 20 Meq/15 Ml Udc) 20 meq NG Q4H [facility] Stop: 03/28/22 01:16 Last Admin: 03/28/22 01:21 Dose: 20 meq Documented By: Admin: 03/27/22 22:01 Dose: 20 meq Documented By: MONI Potassium Chloride (Potassium Chloride 20 Meq/15 Ml Udc) 20 meq NG Q4H [facility] Stop: 03/28/22 11:01 Last Admin: 03/28/22 12:05 Dose: 20 meq Documented By: Admin: 03/28/22 07:12 Dose: 20 meq Documented By: CHEPE Potassium Chloride (Potassium Chloride 20 Meq/15 Ml Udc) 20 meq NG Q4H [facility] Stop: 03/28/22 22:46 Last Admin: 03/28/22 22:18 Dose: 20 meq Documented By: Admin: 03/28/22 18:57 Dose: 20 meq Documented By: TERESITA Potassium Phosphate (Pot Phosphate Monobasic W/ Sod Tab) 1 tab NG Q4H [facility] Stop: 03/28/22 05:16 Last Admin: 03/28/22 05:43 Dose: 1 tab Documented By: Admin: 03/28/22 01:21 Dose: 1 tab Documented By: Admin: 03/27/22 22:01 Dose: 1 tab Documented By: TP Potassium Phosphate (Pot Phosphate Monobasic W/ Sod Tab) 1 tab NG Q4H [facility] Stop: 03/28/22 15:01 Last Admin: 03/28/22 16:44 Dose: 1 tab Documented By: Admin: 03/28/22 12:04 Dose: 1 tab Documented By: Admin: 03/28/22 07:12 Dose: 1 tab Documented By: CHEPE Propofol (Propofol Iv Emulsion 10 Mg/Ml 100 Ml Vial) Confirm Administered Dose 1,000 mg IV .STK-MED ONE Stop: 03/24/22 15:48 Last Admin: 03/24/22 16:19 Dose: Not Given Documented By: IONE Propofol (Propofol Bolus From Bag) 20 mg IV Q5M PRN PRN Reason: Sedation Stop: 03/30/22 15:56 Last Admin: 03/28/22 13:59 Dose: 20 mg Documented By: CHEPE Co-signed By: TOM Admin: 03/28/22 12:23 Dose: 20 mg Documented By: CHEPE Co-signed By: TOM Admin: 03/28/22 11:06 Dose: 30 mg Documented By: CHEPE Co-signed By: TRISTA Admin: 03/28/22 10:35 Dose: 30 mg Documented By: CHEPE Co-signed By: TRISTA Admin: 03/28/22 10:15 Dose: 50 mg Documented By: CHEPE Co-signed By: KELSY Admin: 03/24/22 17:00 Dose: 20 mg Documented By: IONE Co-signed By: MARK Admin: 03/24/22 16:50 Dose: 20 mg Documented By: IONE Co-signed By: MARK Admin: 03/24/22 16:36 Dose: 20 mg Documented By: IONE Co-signed By: MARK Admin: 03/24/22 16:25 Dose: 20 mg Documented By: IONE Co-signed By: MARK Propofol (Propofol Iv Emulsion 10 Mg/Ml 100 Ml Vial) Confirm Administered Dose 1,000 mg IV .STK-MED ONE Stop: 03/29/22 11:06 Last Admin: 03/29/22 11:33 Dose: Not Given Documented By: CHEPE Senna/Docusate Sodium (Docusate Sodium/Senna 50/8.6mg Tab) 1 tab PO QAM [facility] Stop: 04/25/22 10:29 Last Admin: 03/28/22 08:37 Dose: 1 tab Documented By: Admin: 03/27/22 08:00 Dose: 1 tab Documented By: Admin: 03/26/22 11:09 Dose: 1 tab Documented By: LANRE Senna/Docusate Sodium (Docusate Sodium/Senna 50/8.6mg Tab) 1 tab PO NOW ONE Stop: 03/28/22 10:16 Last Admin: 03/28/22 11:48 Dose: Not Given Documented By: CHEPE Senna/Docusate Sodium (Docusate Sodium/Senna 50/8.6mg Tab) 2 tab PO BID [facility] Stop: 04/27/22 20:59 Last Admin: 03/29/22 11:15 Dose: Not Given Documented By: Admin: 03/28/22 22:12 Dose: 2 tab Documented By: TP Sodium Chloride (Sodium Chlor 7% 4 Ml Neb) 4 ml NEB BIDR [facility] Stop: 04/24/22 18:59 Last Admin: 03/29/22 08:18 Dose: Not Given Documented By: Admin: 03/28/22 20:20 Dose: 4 ml Documented By: Admin: 03/28/22 07:43 Dose: 4 ml Documented By: Admin: 03/27/22 20:31 Dose: 4 ml Documented By: Admin: 03/27/22 07:56 Dose: 4 ml Documented By: Admin: 03/26/22 20:47 Dose: 4 ml Documented By: Admin: 03/26/22 08:14 Dose: 4 ml Documented By: Admin: 03/25/22 20:31 Dose: 4 ml Documented By: TOÑO Vecuronium [place] (Vecuronium [place] 10 Mg Vial) Confirm Administered Dose 10 mg IV .STK-MED ONE Stop: 03/25/22 16:13 Last Admin: 03/25/22 16:30 Dose: 10 mg Documented By: ROBERT Co-signed By: LANRE Vecuronium [place] (Vecuronium [place] 10 Mg Vial) 10 mg IV NOW STA Stop: 03/25/22 16:26 Last Admin: 03/25/22 16:37 Dose: Not Given Documented By: LANRE Description This is a 21 electrode EEG with a single channel dedicated to limited EKG. The electrodes were placed in accordance with the International 10-20 system. There is fairly continuous generalized mixed delta and theta activity throughout the duration of the study. A normal-appearing alpha rhythm is not observed. Photic stimulation is unremarkable. Hyperventilation is not performed. There is no focal or lateralized slowing. There are no epileptiform abnormalities. Interpretation Abnormal awake/drowsy EEG revealing evidence of a severe nonspecific encephalopathy. There are no epileptiform abnormalities. [facility] EEG Procedure Codes Indication for Procedure (1) Acute encephalopathy: (2) Seizure: Neurology Neurology: 51021 EEG include record awake & drowsy
--- NOTE | 2022-03-29 12:23 | Electrocardiogram Report ---
Test Reason : Blood Pressure : / mmHG Vent. Rate : 101 BPM Atrial Rate : 101 BPM P-R Int : 130 ms QRS Dur : 080 ms QT Int : 326 ms P-R-T Axes : 067 074 063 degrees QTc Int : 422 ms Sinus tachycardia Borderline ECG When compared with ECG of 25-MAR-2022 20:48, No significant change Confirmed by Sameer Lakhani ([id number]) on 03/29/2022 12:23:33 PM Referred By: REFERRED SELF Confirmed By:Sameer Lakhani
[2022-03-29] MEDS ORDERED: MIDAZOLAM HCL 5 MG/ML 1 ML VIAL IV ONE (13:06)
[2022-03-29] MEDS ORDERED: SUCCINYLCHOLINE CHLORIDE 20 MG/ML 10 ML VIAL IV ONE (13:06)
[2022-03-29] MEDS: ENOXAPARIN INJ 40 MG/0.4 ML SYR SQ SCH (13:11)
[2022-03-29] MEDS: ACETAMINOPHEN 325 MG TAB PO PRN ×2 (13:12→16:56)
[2022-03-29] MEDS: QUEtiapine FUMARATE 25 MG TABLET PO SCH ×2 (13:12→21:06)
[2022-03-29] MEDS: PANTOprazole 40 MG in SYRINGE 0 ML IV SCH (13:13)
[2022-03-29] MEDS: POTASSIUM CHLORIDE 20 MEQ/15 ML UDC NG SCH ×2 (13:20→16:40)
[2022-03-29] MEDS: MAGNESIUM OXIDE 400 MG TAB NG SCH ×2 (13:20→16:40)
[2022-03-29] MEDS: ICU ELECTROLYTE REPLACEMENT PROTOCOL SCH ×2 (13:20→19:10)
[2022-03-29] MEDS: LACTULOSE SYRUP 30 GM/45 ML UDP PO SCH (13:40)
[2022-03-29] MEDS: PEPTAMEN INTENSE VHP 1.0 CAL 1,000 ML BAG OG SCH (14:19)
--- NOTE | 2022-03-29 14:38 | Hospitalist Progress Note ---
Date of Service March 29, 2022 Assessment & Plan (1) Acute hypoxemic respiratory failure: Plan: ARDS and acute hypoxic respiratory failure, CXRs suggest aspiration pneumonia. RSV was also positive on admission. Vent suction sputum cx from 03/25 growing MSSA. Extubated on 03/29, but then re-intubated after approx. 2 hours due to laryngospasm, respiratory distress, and hypoxemia. - Currently on cefazolin for MSSA pneumonia. - Appreciate Critical care (2) Seizure: Plan: Patient was brought to the hospital after a seizure, no previous history of seizure according to his mother. Observed seizure activity while in the ER, initial lactate & prolactin elevated. Patient reported he uses about 7g of marijuana daily and also drinks daily alcohol. Extreme agitation in ER required intubation and sedation MRI brain essentially wnl, no suggestion of encephalitis, no meningeal enhancement. Initially empirically covered with acyclovir/azithromycin/ceftriaxone/va ncomycin/dexamethasone - LP on 03/27 with negative BioFire panel. CSF culture pending. De-escalated abx to cefazolin per ICU attending. (3) Aspiration pneumonia: Plan: Following seizure. - As above (4) HTN (hypertension): Plan: Prior elevated blood pressure, no diagnosis of HTN. Presently low-normal at 97/56. - IV PRN meds for BP control (5) Delirium: Plan: Infectious encephalopathy. - Conservative measures. Presently sedated due to intubation. (6) DVT prophylaxis: Plan: Heparin on hold per ICU team - Resume as able Admission and Anticipated Discharge Date Admission Date: March 24, 2022 Subjective Seen in the ICU at 9:00am. In respiratory distress, ended up re-intubated. Physical Exam Constitutional: WD/WN, vitals as above + acute distress and + ill appearing Eyes: EOM intact bilaterally; no conjunctival abnormality ENMT: external ear and nose normal, oropharynx normal Neck: trachea midline, no thyromegaly normal visual inspection Respiratory: normal respiratory effort, lungs clear to auscultation no respiratory distress Cardiovascular: RRR, no murmur, no edema Gastrointestinal (Abdomen): Inspection/Auscultation: abdomen normal to inspection; abdomen not distended Musculoskeletal: no cyanosis or clubbing, extremities motor strength 5/5 Skin: no rashes, warm and dry Neurologic: + does not move all extremities and + not awake Psychiatric: Orientation: cooperative; + not alert and + not oriented to person Results & Data Results & Data ([facility]) Vital Signs (Past 12 Hours) Vital Signs Temp Pulse Resp BP Pulse Ox O2 Del Method O2 Flow Rate 03/29/22 12:15 106 H 22 111/79 98 03/29/22 12:00 114 H 22 109/75 96 03/29/22 11:50 115 H 22 101/67 96 03/29/22 11:45 116 H 22 126/65 96 03/29/22 11:30 121 H 20 92/56 L 94 03/29/22 11:25 121 H 20 106/60 92 03/29/22 11:20 124 H 20 95/48 L 90 03/29/22 11:15 127 H 23 81/63 L 90 03/29/22 11:11 129 H 25 H 115/71 88 L 03/29/22 11:04 136 H 20 03/29/22 11:00 129 H 26 H 128/99 97 03/29/22 10:56 130 H 20 112/41 L 97 03/29/22 10:51 141 H 40 H 102/67 98 03/29/22 10:45 144 H 28 H 105/71 100 03/29/22 10:39 124 H 26 H 107/53 L 98 03/29/22 10:30 129 H 23 112/60 96 03/29/22 10:16 147 H 26 H 133/103 H 100 03/29/22 10:15 146 H 28 H 99 03/29/22 10:00 130 H 28 H 183/110 H 95 03/29/22 09:45 102 H 20 183/103 H 94 03/29/22 09:30 116 H 20 184/105 H 93 03/29/22 09:25 100 H 20 170/107 H 90 03/29/22 09:15 103 H 28 H 144/120 H 84 L 03/29/22 08:16 92 H 46 H 132/95 92 03/29/22 08:00 95 H 28 H 159/107 H 93 03/29/22 07:42 38.0 C H 103 H 33 H 160/100 H 94 03/29/22 07:30 38.0 C H 97 H 14 93 03/29/22 08:00 High Flow Nasal Cannula 50 03/29/22 10:13 39.6 C H 03/29/22 09:32 124 H 20 94 03/29/22 08:00 93 H 03/29/22 05:00 38.0 C H 73 26 H 77 L 03/29/22 05:00 141/89 H 03/29/22 04:15 38.0 C H 88 25 H 97 03/29/22 04:15 150/97 H 03/29/22 04:00 38.0 C H 80 20 95 03/29/22 04:00 133/87 03/29/22 03:45 38.0 C H 81 21 95 03/29/22 03:45 130/85 03/29/22 03:30 37.9 C H 79 21 95 03/29/22 03:30 138/95 03/29/22 03:15 139/92 03/29/22 03:15 37.9 C H 80 21 95 03/29/22 03:00 37.9 C H 81 21 96 03/29/22 03:00 132/87 03/29/22 02:45 37.9 C H 80 20 95 03/29/22 02:45 134/87 03/29/22 04:23 79 23 93 03/29/22 04:00 FiO2 03/29/22 12:15 03/29/22 12:00 03/29/22 11:50 03/29/22 11:45 03/29/22 11:30 03/29/22 11:25 03/29/22 11:20 03/29/22 11:15 03/29/22 11:11 03/29/22 11:04 03/29/22 11:00 03/29/22 10:56 03/29/22 10:51 03/29/22 10:45 03/29/22 10:39 03/29/22 10:30 03/29/22 10:16 03/29/22 10:15 03/29/22 10:00 03/29/22 09:45 03/29/22 09:30 03/29/22 09:25 03/29/22 09:15 03/29/22 08:16 03/29/22 08:00 03/29/22 07:42 03/29/22 07:30 03/29/22 08:00 60 03/29/22 10:13 03/29/22 09:32 100 03/29/22 08:00 03/29/22 05:00 03/29/22 05:00 03/29/22 04:15 03/29/22 04:15 03/29/22 04:00 03/29/22 04:00 03/29/22 03:45 03/29/22 03:45 03/29/22 03:30 03/29/22 03:30 03/29/22 03:15 03/29/22 03:15 03/29/22 03:00 03/29/22 03:00 03/29/22 02:45 03/29/22 02:45 03/29/22 04:23 60 03/29/22 04:00 60 PG Care Time/CCT Total # of Minutes Spent Total Time Spent with Patient: Total time spent is greater than 50% in coordination of care (as documented) at patient's floor/unit and/or counseling patient: Coding Level of Care Code 71141 Subseq Hosp Care Lvl 3 Diagnoses Acute hypoxemic respiratory failure J96.01 Seizure R56.9 Aspiration pneumonia J69.0 HTN (hypertension) I10 Delirium R41.0 DVT prophylaxis Z29.9
[2022-03-29] MEDS: IBUPROFEN 200 MG/10 ML UDC PO PRN (15:11)
[2022-03-29] MEDS ORDERED: VECURONIUM BROMIDE 10 MG VIAL IV STA (16:49)
--- NOTE | 2022-03-29 17:47 | Billing Data ---
Date of Service March 29, 2022 Coding Level of Care Code Critical Care 1st - mins
[2022-03-29 17:59] LABS: Magnesium 1.9 mg/dl (1.7-2.4); Phosphorus 4.1 mg/dl (2.5-4.9); Potassium 4.2 mmol/L (3.5-5.1)
[2022-03-29] MEDS: PROPOFOL BOLUS FROM BAG IV PRN (20:26)
[2022-03-30] MEDS: TUBE FEEDING WATER FLUSH NG SCH ×6 (00:10→20:14)
[2022-03-30] MEDS: propofoL 1,000 MG/100 ML VIAL IV SCH ×7 (00:24→22:19)
[2022-03-30] MEDS: MIDAZOLAM BOLUS FROM BAG IV PRN ×3 (01:55→20:08)
[2022-03-30] MEDS: dexMEDEtomidine 400 MCG/100 ML Bag (Premixed) IV SCH ×8 (02:02→23:13)
[2022-03-30] MEDS: ceFAZolin 2,000 MG in SYRINGE 0 ML IV SCH ×3 (04:30→20:19)
[2022-03-30] MEDS: MIDAZOLAM HCL 125 MG/250 ML BAG IV SCH ×2 (04:58→15:33)
[2022-03-30 05:07] LABS: Basophils # (auto) 0.02 K/uL (0-0.2); Basophils % (auto) 0.4 %; Eosinophils % (auto) 5.9 %; Hemoglobin 10.6 g/dl (14.0-18.0); Immature Granulocytes # (auto) 0.04 K/uL (0.00-0.02); Immature Granulocytes % (auto) 0.8 %; Lymphocytes # (auto) 1.59 K/uL (1.2-3.4); Lymphocytes % (auto) 31.3 %; Mean Corpuscular Hemoglobin 32.6 pg (25.0-34.0); Mean Corpuscular Hgb Conc 34.2 g/dL (32.0-36.0); Mean Corpuscular Volume 95.4 fL (80.0-100.0); Mean Platelet Volume 9.5 fL (9.4-12.4); Monocytes # (auto) 0.42 K/uL (0.24-0.82); Monocytes % (auto) 8.3 %; Neutrophils # (auto) 2.71 K/uL (1.4-6.5); Neutrophils % (auto) 53.3 %; Platelet Count 211 K/uL (130-400); RDW Coefficient of Variation 12.3 % (11.5-14.5); RDW Standard Deviation 43.5 fL (36.4-46.3); Red Blood Count 3.25 M/uL (4.63-6.08); White Blood Count 5.08 K/ul (4.8-10.8)
[2022-03-30 06:21] LABS: Albumin Level 3.1 gm/dl (3.4-5.0); BUN Creatinine Ratio 17.2 (10-20); Bilirubin,Total 0.3 mg/dl (0.2-1.0); Calcium 8.3 mg/dl (8.5-10.1); Creatinine Clr Calc Pharmacy 104.1 ml/min; Est GFR (African American) 96.9 ml/min; Est GFR (Non-African American) 83.6 ml/min; Phosphorus 3.1 mg/dl (2.5-4.9); Potassium 3.7 mmol/L (3.5-5.1); Total Protein 6.2 gm/dl (6.0-8.3)
[2022-03-30 06:40] LABS: Bilirubin Direct 0.1 mg/dl (0-0.2); Magnesium 2.1 mg/dl (1.7-2.4)
[2022-03-30] MEDS: ICU ELECTROLYTE REPLACEMENT PROTOCOL SCH ×2 (07:02→17:03)
--- NOTE | 2022-03-30 07:18 | Hospitalist Progress Note ---
Date of Service March 30, 2022 Assessment & Plan (1) Acute hypoxemic respiratory failure: Plan: ARDS and acute hypoxic respiratory failure, CXRs suggest aspiration pneumonia. RSV was also positive on admission. Vent suction sputum cx from 03/25 growing MSSA. Extubated on 03/29, but then re-intubated after approx. 2 hours due to laryngospasm, respiratory distress, and hypoxemia. - Currently on cefazolin for MSSA pneumonia. - Appreciate Critical care - Re-culturing on 03/30 for continued fevers. (2) Hypotension: Plan: After re-intubation on 03/29, patient became hypotensive. Likely due to sedation requirements and possibly some hypovolemia. - Required Levophed for approx. 12 hours. Off by 10pm on 03/29. (3) Seizure: Plan: Patient was brought to the hospital after a seizure, no previous history of seizure according to his mother. Observed seizure activity while in the ER, initial lactate & prolactin elevated. Patient reported he uses about 7g of marijuana daily and also drinks daily alcohol. Extreme agitation in ER required intubation and sedation MRI brain essentially wnl, no suggestion of encephalitis, no meningeal enhancement. Initially empirically covered with acyclovir/azithromycin/ceftriaxone/vancomycin/dexamethasone - LP on 03/27 with negative BioFire panel. CSF culture pending. De-escalated abx to cefazolin per ICU attending. (4) Aspiration pneumonia: Plan: Following seizure. - As above (5) HTN (hypertension): Plan: Prior elevated blood pressure, no diagnosis of HTN. Presently low-normal at 115/76. - IV PRN meds for BP control (6) Delirium: Plan: Infectious encephalopathy. - Conservative measures. Presently sedated due to intubation. (7) DVT prophylaxis: Plan: Heparin on hold per ICU team - Resume as able Admission and Anticipated Discharge Date Admission Date: March 24, 2022 Subjective Intubated and sedated. Physical Exam Constitutional: WD/WN, vitals as above + acute distress and + ill appearing Eyes: EOM intact bilaterally; no conjunctival abnormality ENMT: external ear and nose normal, oropharynx normal Neck: trachea midline, no thyromegaly normal visual inspection Respiratory: normal respiratory effort, lungs clear to auscultation no respiratory distress Cardiovascular: RRR, no murmur, no edema Gastrointestinal (Abdomen): Inspection/Auscultation: abdomen normal to inspection; abdomen not distended Musculoskeletal: no cyanosis or clubbing, extremities motor strength 5/5 Skin: no rashes, warm and dry Neurologic: + does not move all extremities and + not awake Psychiatric: Orientation: cooperative; + not alert and + not oriented to person Results & Data Results & Data ([facility]) Vital Signs (Past 12 Hours) Vital Signs Temp Pulse Resp BP Pulse Ox O2 Del Method FiO2 03/30/22 06:30 116/76 03/30/22 06:30 70 20 94 03/30/22 06:15 72 20 94 03/30/22 06:15 110/73 03/30/22 06:00 72 20 93 03/30/22 06:00 108/73 03/30/22 05:45 112/74 03/30/22 05:45 72 20 93 03/30/22 05:30 111/70 03/30/22 05:30 73 20 93 03/30/22 05:15 75 20 92 03/30/22 05:15 111/70 03/30/22 05:00 74 20 92 03/30/22 05:00 111/71 03/30/22 04:45 110/70 03/30/22 04:45 77 20 91 03/30/22 04:30 76 20 91 03/30/22 04:30 112/71 03/30/22 04:15 78 20 89 L 03/30/22 04:15 109/68 03/30/22 04:00 77 20 94 03/30/22 04:00 113/74 03/30/22 03:45 78 18 94 03/30/22 03:45 108/71 03/30/22 03:30 78 17 94 03/30/22 03:30 114/72 03/30/22 04:47 75 20 91 60 03/30/22 04:00 37.6 C H 03/30/22 04:00 60 03/30/22 04:38 77 20 96 50 03/30/22 03:15 79 16 96 03/30/22 03:15 114/75 03/30/22 03:00 79 17 93 03/30/22 03:00 108/70 03/30/22 02:45 79 18 93 03/30/22 02:45 112/70 03/30/22 02:30 80 17 92 03/30/22 02:30 107/70 03/30/22 02:15 80 18 92 03/30/22 02:15 115/71 03/30/22 02:00 79 17 93 03/30/22 02:00 115/70 03/30/22 01:45 81 20 95 03/30/22 01:45 111/70 03/30/22 01:30 82 20 95 03/30/22 01:30 105/68 03/30/22 01:15 81 20 95 03/30/22 01:15 112/70 03/30/22 01:00 81 20 95 03/30/22 01:00 108/74 03/30/22 00:45 80 20 95 03/30/22 00:45 113/73 03/30/22 00:30 80 20 95 03/30/22 00:30 115/73 03/30/22 03:00 37.9 C H 03/30/22 00:15 82 20 95 03/30/22 00:15 116/74 03/30/22 00:00 82 20 95 03/30/22 00:00 114/74 03/29/22 23:45 85 20 95 03/29/22 23:45 108/70 03/29/22 23:30 86 20 94 03/29/22 23:30 106/68 03/29/22 23:15 86 20 95 03/29/22 23:15 105/64 03/29/22 23:00 87 20 95 03/29/22 23:00 114/74 03/29/22 22:45 83 20 96 03/29/22 22:45 124/80 03/29/22 22:30 84 20 95 03/29/22 22:30 118/78 03/29/22 22:15 83 20 94 03/29/22 22:15 124/80 03/29/22 22:00 84 20 94 03/29/22 22:00 122/80 03/29/22 21:45 83 20 94 03/29/22 21:45 118/81 03/29/22 21:30 84 20 95 03/29/22 21:30 127/83 14 21:15 85 20 95 03/29/22 21:15 127/83 03/29/22 21:00 82 19 94 03/29/22 21:00 123/83 03/30/22 00:00 38.3 C H 03/30/22 00:00 50 03/30/22 00:00 81 03/29/22 23:19 88 20 99 50 03/29/22 21:10 86 20 98 50 03/29/22 20:45 82 20 94 03/29/22 20:45 126/85 03/29/22 20:30 85 20 94 03/29/22 20:30 127/84 03/29/22 20:15 85 20 95 03/29/22 20:15 124/83 03/29/22 20:00 87 20 95 03/29/22 20:00 120/81 03/29/22 19:45 85 20 95 03/29/22 19:45 120/80 03/29/22 19:30 85 17 95 03/29/22 19:30 120/80 03/29/22 19:15 87 18 97 03/29/22 19:15 114/75 03/29/22 20:00 38.2 C H 03/29/22 20:00 Mechanical Vent 50 03/29/22 20:00 50 PG Care Time/CCT Total # of Minutes Spent Total Time Spent with Patient: Total time spent is greater than 50% in coordination of care (as documented) at patient's floor/unit and/or counseling patient: Coding Level of Care Code 51131 Subseq Hosp Care Lvl 3 Diagnoses Acute hypoxemic respiratory failure J96.01 Hypotension I95.9 Seizure R56.9 Aspiration pneumonia J69.0 HTN (hypertension) I10 Delirium R41.0 DVT prophylaxis Z29.9
[2022-03-30] MEDS: POTASSIUM CHLORIDE 20 MEQ/15 ML UDC NG SCH ×2 (07:36→11:09)
[2022-03-30] MEDS: ENOXAPARIN INJ 40 MG/0.4 ML SYR SQ SCH (07:39)
[2022-03-30] MEDS: QUEtiapine FUMARATE 25 MG TABLET PO SCH ×2 (07:40→22:46)
--- NOTE | 2022-03-30 08:04 | Critical Care Progress Note ---
Date of Service March 30, 2022 Assessment & Plan (1) ARDS (adult respiratory distress syndrome): Plan: ICU Assessment and Plans Reason Critically Ill: 22-year-old male here with PMHx medical marijuana usage who presented with seizure and [facility] Neuro - [facility] ICU: NEGATIVE Sedation: Precedex propofol fentanyl midazolam seroquel Analgesia: PRN tylenol, motrin Acute Encephalopathy -MRI brain unremarkable. CT head negative. -Neurology consulted, seizure 03/24 likely 2/2 infection - attempted extubation 03/29 failed, reintubated - EEG: severe nonspecific encephalopathy -lumbar puncture 03/27 CSF studies and meningitis panel negative, low concern meningitis -he has been off acyclovir since 03/25 4am -cefepime flyagyl azithromycin discontinued, switched to rocephin 03/28, dc'd and switched to cefazolin -testing for HIV, lyme consent received from mom -discontinue neuromuscular blockade Cardiac - Elevated Troponin -downtrending Volume overload -2 IVF -ordered lasix Respiratory - ARDS -Patient with ARDS essentially secondary to RSV and aspiration pneumonitis. -sputum culture MSSA -mechanically vented, extubation trial 03/29 failed, reintubated may consider extubation trial today -dc neuromuscular blockade -he has been off acyclovir since 03/25 4am -cefepime Flagyl azithromycin discontinued, switched to rocephin 03/28, dc'd and switched to cefazolin Mucus Plugging -bronch 03/29 negative for mucus plugging GI - -tube feeds -on prophylactic PPI -continue bowel regime -ordered dignishield RENAL/LYTES - CARLEE -resolved, replace lytes as needed, continue to monitor -SUSANNE screen, ANCA screen and anti-GBM screen pending. - No concerns at this time. ENDO - No concerns at this time. HEME - Stable H&H. ID - Sepsis /2 MSSA pneumonia -cefepime Flagyl azithromycin discontinued, switched to rocephin 03/28, dc'd and switched to cefazolin for 10 days total abx -monitor fever curve, continue PRN tylenol motrin INTEGUMENTARY - skin clean dry intact LINES/IV ACCESS - PIVs intact. DVT PROPHYLAXIS - -lovenox Thank you for allowing us to be part of this patient's care. Please refer to Dr. Moore's documentation for any further recommendations. (2) RSV (acute bronchiolitis due to respiratory syncytial virus): (3) HTN (hypertension): (4) Aspiration pneumonia: (5) Sepsis: (6) Acute encephalopathy: (7) Acute hypoxemic respiratory failure: (8) Seizure: (9) Marijuana abuse: (10) Acute kidney injury: Admission and Anticipated Discharge Date Admission Date: March 24, 2022 Supervising Physician Co-Signing Physician Notes Dr. Guevara was resident physician during care of patient. I separately evaluated patient for burns portions of the history and the exam. I was present during the critical portion of medical decision making, and I discussed the case with the resident. I generally agree with the findings and plan. Family requesting transfer to [facility]. Overnight NAIF Dotson discussed with and patient was accepted by Alec Lawrence at [facility]. Staff working EMS transport, awaiting bed. Oxygenation requirements decreasing, FiO2 40%, Peep of 8. Will strongly consider trial of extubation today. 0955: Notified by RN, [facility] is cancelling transfer and is NOT accepting the patient in transfer. Updated father and mother in law of [facility] cancel. Updated clinical situation. Currently 40% FiO2 and 5 Peep, saturating 94% and greater. Continuing ventilation today and anticipate trial of extubation tomorrow. I have personally spent 40 minutes of critical care time in the direct management of this patient. This is a life/limb threatening event. This includes time spent evaluating patient, direct bedside care, chart review, placing orders, interpretation of diagnostic studies, discussion with consultants, patient, and/or family members regarding treatment decisions, as well as other required patient management activities. This time is exclusive of all separately billable procedures, and teaching time and separate from and in addition to any other critical care service time. Subjective Patient seen at bedside, supine, mechanically ventilated. Review of Systems Review of Systems: Unobtainable due to endotracheal tube Physical Exam Constitutional: well developed, well nourished and + mechanically ventilated Eyes: PERRL, conjunctivae normal, anicteric sclerae ENMT: external ear and nose normal, oropharynx normal Neck: trachea midline, no thyromegaly Respiratory: Auscultation: lungs clear to auscultation bilaterally Cardiovascular: Rate/Rhythm: regular rate and regular rhythm Gastrointestinal (Abdomen): Inspection/Auscultation: abdomen normal to inspection Percussion/Palpation: abdomen soft Skin: no rashes, warm and dry Neurologic: + obtunded Results & Data Results & Data ([facility]) Vital Signs (Past 12 Hours) Vital Signs Temp Pulse Resp BP Pulse Ox FiO2 03/30/22 07:48 70 20 93 50 03/30/22 06:30 116/76 03/30/22 06:30 70 20 94 03/30/22 06:15 72 20 94 03/30/22 06:15 110/73 03/30/22 06:00 72 20 93 03/30/22 06:00 108/73 03/30/22 05:45 112/74 03/30/22 05:45 72 20 93 03/30/22 05:30 111/70 03/30/22 05:30 73 20 93 03/30/22 05:15 75 20 92 03/30/22 05:15 111/70 03/30/22 05:00 74 20 92 03/30/22 05:00 111/71 03/30/22 04:45 110/70 03/30/22 04:45 77 20 91 03/30/22 04:30 76 20 91 03/30/22 04:30 112/71 03/30/22 04:15 78 20 89 L 03/30/22 04:15 109/68 03/30/22 04:00 77 20 94 03/30/22 04:00 113/74 03/30/22 03:45 78 18 94 03/30/22 03:45 108/71 03/30/22 03:30 78 17 94 03/30/22 03:30 114/72 03/30/22 04:47 75 20 91 60 03/30/22 04:00 37.6 C H 03/30/22 04:00 60 03/30/22 04:38 77 20 96 50 03/30/22 03:15 79 16 96 03/30/22 03:15 114/75 03/30/22 03:00 79 17 93 03/30/22 03:00 108/70 03/30/22 02:45 79 18 93 03/30/22 02:45 112/70 03/30/22 02:30 80 17 92 03/30/22 02:30 107/70 03/30/22 02:15 80 18 92 03/30/22 02:15 115/71 03/30/22 02:00 79 17 93 03/30/22 02:00 115/70 03/30/22 01:45 81 20 95 03/30/22 01:45 111/70 03/30/22 01:30 82 20 95 03/30/22 01:30 105/68 03/30/22 01:15 81 20 95 03/30/22 01:15 112/70 03/30/22 01:00 81 20 95 03/30/22 01:00 108/74 03/30/22 00:45 80 20 95 03/30/22 00:45 113/73 03/30/22 00:30 80 20 95 03/30/22 00:30 115/73 03/30/22 03:00 37.9 C H 03/30/22 00:15 82 20 95 03/30/22 00:15 116/74 03/30/22 00:00 82 20 95 03/30/22 00:00 114/74 03/29/22 23:45 85 20 95 03/29/22 23:45 108/70 03/29/22 23:30 86 20 94 03/29/22 23:30 106/68 03/29/22 23:15 86 20 95 03/29/22 23:15 105/64 03/29/22 23:00 87 20 95 03/29/22 23:00 114/74 03/29/22 22:45 83 20 96 03/29/22 22:45 124/80 03/29/22 22:30 84 20 95 03/29/22 22:30 118/78 03/29/22 22:15 83 20 94 03/29/22 22:15 124/80 03/29/22 22:00 84 20 94 03/29/22 22:00 122/80 03/29/22 21:45 83 20 94 03/29/22 21:45 118/81 03/29/22 21:30 84 20 95 03/29/22 21:30 127/83 03/29/22 21:15 85 20 95 03/29/22 21:15 127/83 03/29/22 21:00 82 19 94 03/29/22 21:00 123/83 03/30/22 00:00 38.3 C H 03/30/22 00:00 50 03/30/22 00:00 81 03/29/22 23:19 88 20 99 50 03/29/22 21:10 86 20 98 50 03/29/22 20:45 82 20 94 03/29/22 20:45 126/85 03/29/22 20:30 85 20 94 03/29/22 20:30 127/84 03/29/22 20:15 85 20 95 03/29/22 20:15 124/83 Resident Activity Tracking Resident Involvement: Resident Care Provided Care Provided: Adult Hospital Medicine
--- NOTE | 2022-03-30 08:19 | XRay Report ---
SINGLE VIEW CHEST CLINICAL HISTORY: Respiratory failure. FINDINGS: An AP, portable, upright chest radiograph is compared to study studies dated 03/29/2022. Th e examination is degraded by portable technique and apical lordotic positioning. An enteric tube is u nchanged in position. Endotracheal tube is repositioned. The tip projects 3.5 cm above the trever. Th e cardiomediastinal silhouette is unremarkable. Pulmonary vascular congestion is suspected. Bilateral airspace opacities are similar yesterday. Small pleural effusions are noted. No pneumothorax is seen . The bony thorax is grossly intact. IMPRESSION: 1. Lines and tubes as above. 2. Suspect pulmonary vascular congestion. 3. Bilateral airspace opacities and pleural effusion are similar to previous. ACT 112: Negative or not required by law. Electronically signed by: Luis Contreras M.D. 03/30/2022 8:18 AM
[2022-03-30] MEDS: fentaNYL citrate 2,500 MCG/250 ML BAG IV SCH ×4 (08:52→22:17)
[2022-03-30] MEDS ORDERED: MULTIVITAMIN TAB PO SCH (09:00)
[2022-03-30 09:17] LABS: HIV 1 RNA PCR Copies/ML Not Detected Copies/mL; HIV-1 RNA Log Copies/mL Not Detected Log cps/mL
[2022-03-30] MEDS: LACTULOSE SYRUP 30 GM/45 ML UDP PO SCH (10:04)
[2022-03-30] MEDS: THIAMINE HCL 100 MG TAB PO SCH (11:03)
[2022-03-30] MEDS: PANTOprazole 40 MG in SYRINGE 0 ML IV SCH (11:08)
[2022-03-30] MEDS: PEPTAMEN INTENSE VHP 1.0 CAL 1,000 ML BAG OG SCH (12:06)
[2022-03-30] MEDS: NOREPINEPHRINE/D5W 4 MG/250 ML PLCT IV SCH (12:08)
[2022-03-30] MEDS: PROPOFOL BOLUS FROM BAG IV PRN ×3 (20:07→23:37)
[2022-03-30] MEDS: fentaNYL BOLUS from BAG IV PRN (20:08)
[2022-03-30] MEDS: ACETAMINOPHEN 325 MG TAB PO PRN (23:09)
[2022-03-31] MEDS: NOREPINEPHRINE/D5W 4 MG/250 ML PLCT IV SCH (00:35)
[2022-03-31] MEDS: TUBE FEEDING WATER FLUSH NG SCH ×6 (00:42→20:01)
[2022-03-31] MEDS: PROPOFOL BOLUS FROM BAG IV PRN ×3 (01:41→06:21)
[2022-03-31] MEDS: propofoL 1,000 MG/100 ML VIAL IV SCH ×4 (01:41→19:16)
[2022-03-31] MEDS: dexMEDEtomidine 400 MCG/100 ML Bag (Premixed) IV SCH ×5 (02:21→13:40)
[2022-03-31] MEDS: MIDAZOLAM HCL 125 MG/250 ML BAG IV SCH ×3 (02:23→19:17)
[2022-03-31] MEDS: ceFAZolin 2,000 MG in SYRINGE 0 ML IV SCH ×3 (04:09→21:30)
[2022-03-31] MEDS: ACETAMINOPHEN 325 MG TAB PO PRN (04:32)
[2022-03-31] MEDS: PEPTAMEN INTENSE VHP 1.0 CAL 1,000 ML BAG OG SCH (05:35)
[2022-03-31] MEDS: fentaNYL BOLUS from BAG IV PRN (05:38)
[2022-03-31] MEDS: MIDAZOLAM BOLUS FROM BAG IV PRN (05:38)
[2022-03-31 05:41] LABS: Albumin Level 3.2 gm/dl (3.4-5.0); BUN Creatinine Ratio 20.7 (10-20); Bilirubin,Total 0.4 mg/dl (0.2-1.0); Calcium 8.7 mg/dl (8.5-10.1); Creatinine Clr Calc Pharmacy 114.4 ml/min; Est GFR (African American) 108.7 ml/min; Est GFR (Non-African American) 93.8 ml/min; Magnesium 1.7 mg/dl (1.7-2.4); Phosphorus 3.8 mg/dl (2.5-4.9); Potassium 3.8 mmol/L (3.5-5.1); Total Protein 6.7 gm/dl (6.0-8.3)
[2022-03-31 06:19] LABS: iSTAT Allen Test Pass; iSTAT Arterial Blood Gas HCO3 26 meg/L (19-24); iSTAT Arterial Blood Gas pCO2 36 mmHg (35-46); iSTAT Arterial Blood Gas pH 7.46 (7.35-7.45); iSTAT Arterial Blood Gas pO2 65 mmHg (80-95); iSTAT Carbon Dioxide 27 mmol/L (24-31); iSTAT FiO2 40 %; iSTAT Site R Radial
[2022-03-31] MEDS: ICU ELECTROLYTE REPLACEMENT PROTOCOL SCH ×2 (06:40→23:20)
[2022-03-31] MEDS ORDERED: POTASSIUM CHLORIDE / WTR 10 MEQ/100 ML PLCT IV SCH (07:00)
[2022-03-31] MEDS ORDERED: MAGNESIUM SULFATE / D5W 1 GM/100 ML BAG IV SCH (07:00)
[2022-03-31 07:10] LABS: Hematocrit (blood only) 36.2 % (40.1-51.0); Mean Corpuscular Hgb Conc 35.9 g/dL (32.0-36.0); Mean Corpuscular Volume 91.9 fL (80.0-100.0); Nucleated RBC # (auto) 0.04 K/uL (0-0); Nucleated RBC % (auto) 0.5 %; RDW Coefficient of Variation 12.2 % (11.5-14.5); RDW Standard Deviation 41.3 fL (36.4-46.3); Red Blood Count 3.94 M/uL (4.63-6.08); White Blood Count 8.22 K/ul (4.8-10.8)
[2022-03-31 07:12] LABS: Basophils # (auto) 0.09 K/uL (0-0.2); Basophils % (auto) 1.1 %; Eosinophils % (auto) 4.9 %; Immature Granulocytes # (auto) 0.41 K/uL (0.00-0.02); Lymphocytes # (auto) 2.02 K/uL (1.2-3.4); Lymphocytes % (auto) 24.6 %; Mean Platelet Volume 9.8 fL (9.4-12.4); Monocytes # (auto) 0.35 K/uL (0.24-0.82); Monocytes % (auto) 4.3 %; Neutrophils # (auto) 4.95 K/uL (1.4-6.5); Neutrophils % (auto) 60.1 %; Platelet Count 240 K/uL (130-400); Platelet Estimate Normal (Normal)
--- NOTE | 2022-03-31 07:21 | XRay Report ---
XR chest 1V portable HISTORY: 22 years-old Male Resp failure acute respiratory failure COMPARISON: Chest radiograph 03/30/2022 TECHNIQUE: AP view of the chest FINDINGS: Cardiomediastinal and hilar silhouettes are unchanged. Endotracheal tube overlies the midline, 3.6 cm superior to the trever. Enteric tube courses into the stomach with distal tip outside the field-of-v iew. No pneumothorax. Pulmonary vascular congestion. Trace left and small right pleural effusions wit h persistent bibasilar opacities. IMPRESSION: 1. Stable lines and tubes. 2. Pulmonary vascular congestion with persistent bibasilar opacities, trace left and small right pleu ral effusions. 3. No pneumothorax identified. ACT 112: Negative or not required by law. The above report was generated using voice recognition software. It may contain grammatical, syntax o r spelling errors. Electronically signed by: Jos Marin M.D. 03/31/2022 7:19 AM
--- NOTE | 2022-03-31 08:09 | Critical Care Progress Note ---
Date of Service March 31, 2022 Assessment & Plan (1) ARDS (adult respiratory distress syndrome): Plan: ICU Assessment and Plans Reason Critically Ill: 22-year-old male here with PMHx medical marijuana usage who presented with seizure and who [facility] - [facility] ICU: NEGATIVE Sedation: Precedex propofol fentanyl midazolam seroquel Analgesia: PRN tylenol, motrin Acute Encephalopathy: resolved -MRI brain unremarkable. CT head negative. -Neurology consulted, seizure 03/24 likely 2/2 infection - attempted extubation 03/29 and 03/31 failed, reintubated - EEG: severe nonspecific encephalopathy -lumbar puncture 03/27 CSF studies and meningitis panel negative, low concern meningitis -he has been off acyclovir since 03/25 4am -cefepime flyagyl azithromycin discontinued, switched to rocephin 03/28, dc'd and switched to cefazolin -testing for HIV, lyme negative -discontinued neuromuscular blockade Agitation -concern 2/2 polysubstance abuse (7g marijuana and large quantity alcohol daily) -increased seroquel to 100mg BID -soft restraints ordered Cardiac - Elevated Troponin -downtrending Volume overload -/2 IVF -ordered lasix Respiratory - ARDS -Patient with ARDS essentially secondary to RSV and aspiration pneumonitis: R esolved -sputum culture MSSA -mechanically vented, extubation trial 03/29 and 03/21 failed, reintubated ordered repeat CXR -dc neuromuscular blockade -he has been off acyclovir since 03/25 4am -cefepime Flagyl azithromycin discontinued, switched to rocephin 03/28, dc'd and switched to cefazolin Mucus Plugging -bronch 03/29 negative for mucus plugging GI - -tube feeds -on prophylactic PPI -continue bowel regime Diarrhea -ordered dignishield -test for c diff RENAL/LYTES - CARLEE -resolved, replace lytes as needed, continue to monitor -SUSANNE screen, ANCA screen and anti-GBM screen pending. - No concerns at this time. ENDO - No concerns at this time. HEME - Stable H&H. ID - Sepsis 2/2 MSSA pneumonia -cefepime Flagyl azithromycin discontinued, switched to rocephin 03/28, dc'd and switched to cefazolin for 10 days total abx -monitor fever curve, continue PRN tylenol motrin -last temp 38.2 -recheck lipase for concern infection -hepatits panel pending INTEGUMENTARY - skin clean dry intact LINES/IV ACCESS - PIVs intact. DVT PROPHYLAXIS - -lovenox Thank you for allowing us to be part of this patient's care. Please refer to Dr. Moore's documentation for any further recommendations. (2) RSV (acute bronchiolitis due to respiratory syncytial virus): (3) HTN (hypertension): (4) Aspiration pneumonia: (5) Sepsis: (6) Acute encephalopathy: (7) Acute hypoxemic respiratory failure: (8) Seizure: (9) Marijuana abuse: (10) Acute kidney injury: Admission and Anticipated Discharge Date Admission Date: March 24, 2022 Supervising Physician Co-Signing Physician Notes Dr. Guevara was resident physician during care of patient. I separately evaluated patient for burns portions of the history and the exam. I was present during the critical portion of medical decision making, and I discussed the case with the resident. I generally agree with the findings and plan. Minimal ventilator settings, CXR reviewed, following commands, proceeded with extubation. Patient calm and conversant after extubation. Continued precedex to facilitate high flow nasal cannula, was able to be downgraded simple nasal cannula. Later became aggitated, removing nasal cannula, moved his bowels, stated he could not follow commands because he was aggressive. Multiple attempts at redirection by staff unsuccessful and patient became combative. Dropped oxygen saturation. Given risk to self and staff patient was re- intubated. Patient's hypoxia resolved promptly. I feel his functional reserve is improving; however, the neuropsychiatric axis and agitation despite precedex and seroquel is precluding him remaining extubated. Accordingly I am increasing the Seroquel from 50 mg twice daily to 100 mg twice daily. Anticipate 48 to 72 hours of additional mechanical ventilation in the hopes that medications will have better effect as well as increasing patient's functional reserve. Continues being febrile, repeat blood cultures despite negative white count, send C. difficile, bilateral venous duplex ultrasound, repeat UA, repeat lipase: I think pancreatitis is unlikely no complaint of abdominal pain. Lyme negative, CSF bio fire unremarkable, no indication of encephalitis/meningitis on CSF analysis, methicillin sensitive Staph aureus isolated on BAL, no growth on fungal smear. Awaiting hepatitis panel results HIV negative LFTs are elevated, question if this could be aspect of viral hepatitis: RSV and rhino enterovirus were both detected on bio fire respiratory PCR. I have personally spent 60 minutes of critical care time in the direct management of this patient. This is a life/limb threatening event. This includes time spent evaluating patient, direct bedside care, chart review, placing orders, interpretation of diagnostic studies, discussion with consultants, patient, and/or family members regarding treatment decisions, as well as other required patient management activities. This time is exclusive of all separately billable procedures, and teaching time and separate from and in addition to any other critical care service time. Subjective Patient seen at bedside sedated. Attempted trial extubation today, patient saturated at 85% on room air tachypnic was agitated tried to remove oxymask, could respond to questions and commands but had difficulty understanding why oxymask was needed or where he was, unable to redirect, decision was made to sedate and reintubate patient. Review of Systems Review of Systems: Unobtainable due to endotracheal tube Physical Exam Constitutional: well developed, well nourished and + mechanically ventilated Eyes: PERRL, conjunctivae normal, anicteric sclerae ENMT: external ear and nose normal, oropharynx normal Neck: trachea midline, no thyromegaly Respiratory: Auscultation: lungs clear to auscultation bilaterally Cardiovascular: Rate/Rhythm: regular rate and regular rhythm Gastrointestinal (Abdomen): Inspection/Auscultation: abdomen normal to inspection Percussion/Palpation: abdomen soft Skin: no rashes, warm and dry Neurologic: + obtunded Results & Data Results & Data ([facility]) Vital Signs (Past 12 Hours) Vital Signs Temp Pulse Resp BP Pulse Ox O2 Del Method FiO2 03/31/22 06:15 107/66 03/31/22 06:15 38.2 C H 82 20 94 03/31/22 06:04 86/63 L 03/31/22 06:04 38.3 C H 82 18 03/31/22 06:00 38.3 C H 82 20 94 03/31/22 05:45 90/65 L 03/31/22 05:45 83 21 93 03/31/22 05:30 82 19 90 03/31/22 05:30 109/64 03/31/22 05:00 38.4 C H 81 21 93 03/31/22 05:00 113/81 03/31/22 04:45 117/75 03/31/22 04:45 38.4 C H 82 19 90 03/31/22 04:30 38.4 C H 82 20 91 03/31/22 04:30 116/80 03/31/22 04:15 38.5 C H 82 20 92 03/31/22 04:15 112/70 03/31/22 04:00 38.5 C H 84 20 92 03/31/22 04:00 110/74 03/31/22 03:45 112/72 03/31/22 03:45 38.5 C H 85 20 91 03/31/22 03:30 38.5 C H 85 20 91 03/31/22 03:30 114/75 03/31/22 03:15 38.5 C H 84 20 91 03/31/22 03:15 114/76 03/31/22 03:00 38.5 C H 84 18 91 03/31/22 03:00 115/77 03/31/22 02:45 38.5 C H 85 20 03/31/22 02:45 114/77 03/31/22 02:30 38.5 C H 84 20 03/31/22 02:30 113/78 03/31/22 02:15 115/73 03/31/22 02:15 38.5 C H 85 20 92 03/31/22 02:00 38.5 C H 86 14 03/31/22 02:00 112/69 03/31/22 01:45 109/74 03/31/22 01:45 38.6 C H 85 20 89 L 03/31/22 01:30 38.6 C H 87 20 92 03/31/22 01:30 121/78 03/31/22 01:15 38.7 C H 86 20 93 03/31/22 01:15 115/78 03/31/22 04:00 Mechanical Vent 03/31/22 04:00 40 03/31/22 03:45 83 20 90 40 03/30/22 23:25 85 20 93 40 03/31/22 01:00 38.7 C H 87 20 91 03/31/22 01:00 112/76 03/31/22 00:45 121/76 03/31/22 00:45 38.6 C H 87 21 90 03/31/22 00:30 38.7 C H 86 20 92 03/31/22 00:30 118/76 03/31/22 00:15 112/78 03/31/22 00:15 38.6 C H 85 20 92 03/31/22 00:00 38.6 C H 89 22 92 03/31/22 00:00 124/77 03/30/22 23:45 113/72 03/30/22 23:45 38.6 C H 84 18 90 03/30/22 23:30 38.5 C H 85 21 90 03/30/22 23:30 115/74 03/30/22 23:15 119/79 03/30/22 23:15 84 21 92 03/30/22 23:00 115/75 03/31/22 00:00 40 03/30/22 21:00 38.3 C H 03/30/22 22:00 38.4 C H 03/30/22 23:00 38.5 C H 03/30/22 23:00 82 20 91 03/30/22 22:45 126/83 03/30/22 22:45 84 22 92 03/30/22 22:30 83 20 92 03/30/22 22:30 119/77 03/30/22 22:15 83 20 93 03/30/22 22:15 119/80 03/30/22 22:00 82 20 93 03/30/22 22:00 123/81 03/30/22 21:45 81 20 93 03/30/22 21:45 122/82 03/30/22 21:30 81 20 92 03/30/22 21:30 122/84 03/30/22 21:15 119/83 03/30/22 21:15 81 17 91 03/30/22 21:00 81 91 03/30/22 21:00 121/81 03/30/22 20:45 83 16 90 03/30/22 20:45 124/80 03/30/22 20:30 86 23 91 03/30/22 20:30 123/85 03/30/22 20:15 117/81 03/30/22 20:15 79 21 91 03/30/22 20:11 91 H 26 H 89 L 03/30/22 20:11 141/90 H 03/30/22 20:45 81 20 92 40 Resident Activity Tracking Resident Involvement: Resident Care Provided Care Provided: Adult Hospital Medicine
[2022-03-31] MEDS: LACTULOSE SYRUP 30 GM/45 ML UDP PO SCH (08:23)
[2022-03-31] MEDS: MULTI VIT W/MINERALS LIQUID 15 ML UDP PO SCH (08:23)
[2022-03-31] MEDS: ENOXAPARIN INJ 40 MG/0.4 ML SYR SQ SCH (08:23)
[2022-03-31] MEDS: POTASSIUM CHLORIDE 20 MEQ/15 ML UDC NG SCH ×2 (08:23→12:10)
[2022-03-31] MEDS: THIAMINE HCL 100 MG TAB PO SCH (08:25)
[2022-03-31] MEDS: PANTOprazole 40 MG in SYRINGE 0 ML IV SCH (08:25)
[2022-03-31] MEDS: QUEtiapine FUMARATE 25 MG TABLET PO SCH (08:25)
[2022-03-31] MEDS: MAGNESIUM SULFATE / D5W 1 GM/100 ML BAG IV SCH ×4 (08:26→15:59)
[2022-03-31] MEDS ORDERED: RAPID SEQUENCE INDUCTION BAG ONE (09:26)
[2022-03-31] MEDS ORDERED: HYDROmorphone INJ 1 MG/ML SYRINGE ONE (09:27)
[2022-03-31] MEDS ORDERED: VECURONIUM BROMIDE 10 MG VIAL IV ONE ×2 (09:35→13:06)
[2022-03-31] MEDS ORDERED: QUEtiapine FUMARATE 25 MG TABLET PO STA (09:55)
--- NOTE | 2022-03-31 10:09 | Billing Data ---
Date of Service March 30, 2022 Coding Level of Care Code Critical Care 1st - mins
--- NOTE | 2022-03-31 10:10 | Billing Data ---
Date of Service March 31, 2022 Coding Level of Care Code Critical Care 1st - mins
--- NOTE | 2022-03-31 10:36 | XRay Report ---
XR chest 1V portable HISTORY: 22 years-old Male ett placement status post placement of endotracheal tube. Acute respirato ry failure COMPARISON: Chest radiograph of same day at 6:41 AM TECHNIQUE: AP view of the chest FINDINGS: Cardiomediastinal and hilar silhouettes are unchanged. Endotracheal tube overlies the midline, 1.0 cm superior to the trever. Enteric tube courses into the stomach with distal tip outside the field-of-v iew. Gaseous distention of the stomach is new from prior. No pneumothorax. Pulmonary vascular congest ion, improved. Trace left and small right pleural effusions with decreased bibasilar opacities. IMPRESSION: 1. Lines and tubes as above with low-lying endotracheal tube. 2. Slightly improved pulmonary vascular congestion with improving bibasilar opacities. 3. Trace left and small right pleural effusions. 4. No pneumothorax identified. ACT 112: Negative or not required by law. The above report was generated using voice recognition software. It may contain grammatical, syntax o r spelling errors. Electronically signed by: Jos Marin M.D. 03/31/2022 10:34 AM
[2022-03-31] MEDS: ACETAMINOPHEN 1,000 MG/100 ML VIAL IV PRN ×2 (10:43→18:31)
[2022-03-31] MEDS: fentaNYL citrate 2,500 MCG/250 ML BAG IV SCH ×2 (10:48→19:16)
--- NOTE | 2022-03-31 11:02 | Ultrasound Report ---
BILATERAL LOWER EXTREMITY VENOUS DOPPLER CLINICAL HISTORY: Respiratory failure. Evaluate for deep venous thrombus. COMPARISON STUDY: No previous studies for comparison. TECHNIQUE: Sonography of the deep venous system of the bilateral lower extremities was performed. Co mpression and augmentation were evaluated. FINDINGS: The bilateral common femoral, superficial femoral and popliteal veins were compressible. A ugmentation was normal. Flow was shown within the deep calf vessels. IMPRESSION: No evidence of deep venous thrombus within the bilateral lower extremities. ACT 112: Negative or not required by law. Electronically signed by: Tyler Shepard M.D. 03/31/2022 11:00 AM
[2022-03-31 12:41] LABS: HBSAG NON-REACTIVE (NON-REACTIVE); Hepatitis A Antibody IgM NON-REACTIVE (NON-REACTIVE); Hepatitis B Core Antibody IgM NON-REACTIVE (NON-REACTIVE)
[2022-03-31] MEDS ORDERED: SUCCINYLCHOLINE CHLORIDE 20 MG/ML 10 ML VIAL IV ONE (13:06)
[2022-03-31] MEDS ORDERED: ETOMIDATE 2 MG/ML 20 ML VIAL IV ONE (13:06)
[2022-03-31 13:38] LABS: Appearance Urine Cloudy (Clear); Bacteria Urine Automated Negative (Negative); Bilirubin Urine Negative (Negative); Blood Urine 1+ (Negative); Color Urine Yellow; Epithelial Cell Urine Auto >30 /lpf (0-5); Glucose Urine UA Negative (Negative); Ketones Urine Trace (Negative); Leukocyte Esterase Urine Negative (Negative); Nitrite Urine Negative (Negative); Protein Urine 1+ (Negative); Specific Gravity Urine 1.036 (1.000-1.030); Urobilinogen Urine Negative (Negative); pH Urine 5.5 (4.5-7.5)
[2022-03-31 14:02] LABS: Cast Urine Automated 0 /lpf (0-5)
--- NOTE | 2022-03-31 16:05 | Hospitalist Progress Note ---
Date of Service March 31, 2022 Assessment & Plan (1) Acute hypoxemic respiratory failure: Plan: ARDS and acute hypoxic respiratory failure, CXRs suggest aspiration pneumonia. RSV was also positive on admission. Vent suction sputum cx from 03/25 growing MSSA. Extubated on 03/29, but then re-intubated after approx. 2 hours due to laryngospasm, respiratory distress, and hypoxemia. - Extubated again on 03/31. Had great O2 saturation per RN (~95%), but became agitated, violent, and required re-intubation. - Currently on cefazolin for MSSA pneumonia. - Appreciate Critical care (2) Agitation: Plan: Both episodes of extubation, the patient became agitated and violent, requiring re-intubation for his safety and safety of staff. - Next extubation, will attempt to have family present for at least first day. Some concern from mingle operator that he has an undiagnosed mental health issue. (3) Hypotension: Plan: After re-intubation on 03/29, patient became hypotensive. Likely due to sedation requirements and possibly some hypovolemia. - Required Levophed for approx. 12 hours. Off by 10pm on 03/29. (4) Seizure: Plan: Patient was brought to the hospital after a seizure, no previous history of seizure according to his mother. Observed seizure activity while in the ER, initial lactate & prolactin elevated. Patient reported he uses about 7g of marijuana daily and also drinks daily alcohol. Extreme agitation in ER required intubation and sedation MRI brain essentially wnl, no suggestion of encephalitis, no meningeal enhancement. Initially empirically covered with acyclovir/azithromycin/ceftriaxone/vancomycin/dexamethasone - LP on 03/27 with negative BioFire panel. CSF culture pending. De-escalated abx to cefazolin per ICU attending. (5) Aspiration pneumonia: Plan: Following seizure. - As above (6) HTN (hypertension): Plan: Prior elevated blood pressure, no diagnosis of HTN. Presently low-normal at 115/76. - IV PRN meds for BP control (7) Delirium: Plan: Infectious encephalopathy. - Conservative measures. Presently sedated due to intubation. (8) DVT prophylaxis: Plan: Heparin on hold per ICU team - Resume as able Admission and Anticipated Discharge Date Admission Date: March 24, 2022 Subjective Intubated again this morning after agitation and aggression. Was a danger t himself and nursing staff. Ended up being intubated again. Physical Exam Constitutional: WD/WN, vitals as above + acute distress and + ill appearing Eyes: no conjunctival abnormality and + EOM not intact ENMT: external ear and nose normal, oropharynx normal Neck: trachea midline, no thyromegaly normal visual inspection Respiratory: no respiratory distress Auscultation: + rhonchi Intubated Cardiovascular: Rate/Rhythm: regular rhythm and + tachycardic Heart Sounds: normal S1 and normal S2 Gastrointestinal (Abdomen): Inspection/Auscultation: abdomen normal to inspection; abdomen not distended Skin: no rashes, warm and dry Neurologic: + does not move all extremities and + not awake Psychiatric: Orientation: + not alert and + not oriented to person Results & Data Results & Data ([facility]) Vital Signs (Past 12 Hours) Vital Signs Temp Pulse Resp BP Pulse Ox O2 Del Method FiO2 03/31/22 11:40 103 H 22 94 50 03/31/22 15:00 130 H 24 93 50 03/31/22 13:41 Mechanical Vent 50 03/31/22 13:00 38.3 C H 95 H 19 91 03/31/22 13:00 91/59 L 03/31/22 12:30 88/50 L 03/31/22 12:30 38.7 C H 95 H 18 93 03/31/22 12:00 39.0 C H 101 H 17 95 03/31/22 12:00 100/53 L 03/31/22 11:30 39.2 C H 107 H 17 93 03/31/22 11:30 92/75 L 03/31/22 11:00 39.5 C H 114 H 20 92 03/31/22 11:00 105/58 L 03/31/22 10:30 126/82 03/31/22 10:30 39.5 C H 125 H 23 03/31/22 10:21 189/108 H 03/31/22 10:21 132 H 28 H 94 03/31/22 10:07 191/105 H 03/31/22 10:07 116 H 18 95 03/31/22 10:01 197/109 H 03/31/22 10:01 118 H 18 94 03/31/22 10:00 114 H 18 93 03/31/22 10:00 223/117 H 03/31/22 09:00 92 H 24 91 03/31/22 08:30 37.9 C H 80 19 03/31/22 08:30 109/63 03/31/22 08:00 38.0 C H 81 21 94 03/31/22 08:00 117/60 03/31/22 07:30 112/67 03/31/22 07:30 38.1 C H 82 20 03/31/22 07:00 38.1 C H 89 20 94 03/31/22 07:00 117/75 03/31/22 06:45 38.2 C H 80 20 03/31/22 06:45 106/72 03/31/22 12:00 75 03/31/22 12:00 50 03/31/22 08:00 50 03/31/22 08:00 75 03/31/22 09:40 75 18 96 50 03/31/22 07:50 80 18 94 40 03/31/22 06:15 107/66 03/31/22 06:15 38.2 C H 82 20 94 03/31/22 06:04 86/63 L 03/31/22 06:04 38.3 C H 82 18 03/31/22 06:00 38.3 C H 82 20 94 03/31/22 05:45 90/65 L 03/31/22 05:45 83 21 93 03/31/22 05:30 82 19 90 03/31/22 05:30 109/64 03/31/22 05:00 38.4 C H 81 21 93 03/31/22 05:00 113/81 03/31/22 04:45 117/75 03/31/22 04:45 38.4 C H 82 19 90 03/31/22 04:30 38.4 C H 82 20 91 03/31/22 04:30 116/80 03/31/22 04:15 38.5 C H 82 20 92 03/31/22 04:15 112/70 03/31/22 04:00 38.5 C H 84 20 92 03/31/22 04:00 110/74 03/31/22 04:00 Mechanical Vent 03/31/22 04:00 40 PG Care Time/CCT Total # of Minutes Spent Total Time Spent with Patient: Total time spent is greater than 50% in coordination of care (as documented) at patient's floor/unit and/or counseling patient: Coding Level of Care Code 97145 Subseq Hosp Care Lvl 3 Diagnoses Acute hypoxemic respiratory failure J96.01 Agitation R45.1 Hypotension I95.9 Seizure R56.9 Aspiration pneumonia J69.0 HTN (hypertension) I10 Delirium R41.0 DVT prophylaxis Z29.9
[2022-03-31] MEDS ORDERED: OPTIRAY 350 100ml IV ONE (17:18)
--- NOTE | 2022-03-31 17:41 | CT Scan Report ---
CT SCAN OF THE CHEST WITH IV CONTRAST CLINICAL HISTORY: Pneumonia. Fever. COMPARISON STUDY: Chest x-ray dated 03/31/2022. Chest CT dated 03/24/2022. TECHNIQUE: Following the IV administration of 85 cc of Optiray 350, CT scan of the thorax was perform ed from the thoracic inlet to the upper abdomen. Images are reviewed in the axial, sagittal, and randall nal planes. IV contrast was administered without complication. A dose lowering technique was utilize d adhering to the principles of ALARA. The examination is degraded by motion artifact, as well as by streak artifact from the arms which could not be elbowed of the chest. CT DOSE: 842.45 mGy.cm FINDINGS: Thyroid: Imaged portions of the thyroid gland are normal in size and attenuation. Thoracic aorta: The thoracic aorta is normal in caliber and demonstrates bovine variant arch anatomy. No dissection is seen. Pulmonary vasculature: The pulmonary trunk is normal in caliber. There are no filling defects identif ied in the central pulmonary vessels to indicate pulmonary embolus. Note that this examination was no t protocoled for evaluation of the pulmonary arteries. Heart: The heart is top normal noting trace pericardial effusion. Lungs and pleural spaces: An endotracheal tube terminates above the trever. The trachea and central a irways appear clear. Evaluation of the lung parenchyma is degraded by motion artifact. Dense airspace consolidation is seen to the lower lobes bilaterally and there are trace bilateral pleural effusions . Patchy airspace consolidation is seen in the upper lobes, right greater than left. No pneumothorax is identified. No peripherally enhancing pulmonary or pleural-based fluid collection is seen. Mediastinum: There are numerous subcentimeter mediastinal lymph nodes. Stefani: Clear. Axillae: There is no axillary lymphadenopathy. Upper abdomen: An enteric tube extends below the diaphragm into the stomach. The spleen is mildly enl arged measuring at least 13.7 cm in length. Skeletal structures: No lytic or blastic bony lesions are seen. IMPRESSION: 1. There is dense bilateral lower lobe airspace consolidation with milder patchy consolidation throug hout the upper lobes. The appearance is typical for pneumonia/aspiration pneumonitis. This has somewh at worsened as compared to 03/24/2022. Radiographic follow-up to resolution is recommend. 2. Trace pleural effusions. 3. Endotracheal and enteric tubes are in place. 4. Additional findings as above. ACT 112: Negative or not required by law. Electronically signed by: Luis Contreras M.D. 03/31/2022 5:38 PM
[2022-03-31 19:34] LABS: Anion Gap 9 (3-11); Blood Urea Nitrogen 21 mg/dl (6-23); Calcium 8.8 mg/dl (8.5-10.1); Carbon Dioxide 25 mmol/L (21-32); Chloride 103 mmol/L (98-107); Creatinine Clr Calc Pharmacy 118.3 ml/min; Est GFR (African American) 117.6 ml/min; Est GFR (Non-African American) 101.4 ml/min; Glucose Fasting 95 mg/dl (70-99); Phosphorus 3.8 mg/dl (2.5-4.9); Potassium 4.3 mmol/L (3.5-5.1); Sodium 137 mmol/L (136-145)
[2022-03-31] MEDS: QUEtiapine FUMARATE 100 MG TABLET PO SCH (19:48)
[2022-03-31] MEDS: IBUPROFEN 200 MG/10 ML UDC PO PRN (19:48)
[2022-03-31] MEDS ORDERED: STAT IV Infusion **Titration per Protocol STA (20:21)
[2022-03-31] MEDS: dexMEDEtomidine 200 MCG/50 ML BAG IV SCH ×3 (20:26→23:58)
[2022-03-31] MEDS ORDERED: LORazepam 3 MG in SYRINGE 0 ML IV PRN (20:30)
[2022-03-31] MEDS ORDERED: Ativan IV Alcohol Withdrawal--Active Protocol IV PRN (20:30)
[2022-03-31] MEDS ORDERED: LORazepam 1 MG in SYRINGE 0 ML IV PRN (20:30)
[2022-03-31] MEDS ORDERED: ZIPRASIDONE 20 MG/ML SDV IM ONE (21:01)
[2022-03-31] MEDS: LORazepam 2 MG in SYRINGE 0 ML IV PRN ×2 (22:08→23:07)
[2022-03-31] MEDS ORDERED: FUROSEMIDE INJ 20 MG/2 ML VIAL IV ONE (22:15)
[2022-03-31] MEDS ORDERED: Nursing to Pharmacy Communication STA (22:48)
[2022-04-01] MEDS: LORazepam 2 MG in SYRINGE 0 ML IV PRN ×2 (00:33→03:03)
[2022-04-01] MEDS: TUBE FEEDING WATER FLUSH NG SCH ×2 (01:14→04:31)
[2022-04-01] MEDS: dexMEDEtomidine 200 MCG/50 ML BAG IV SCH ×3 (01:50→04:15)
[2022-04-01] MEDS: ceFAZolin 2,000 MG in SYRINGE 0 ML IV SCH ×3 (04:31→20:02)
[2022-04-01 04:59] LABS: Basophils # (auto) 0.05 K/uL (0-0.2); Basophils % (auto) 0.4 %; Eosinophils # (auto) 0.17 K/uL (0-0.50); Eosinophils % (auto) 1.2 %; Hematocrit (blood only) 39.3 % (40.1-51.0); Hemoglobin 13.8 g/dl (14.0-18.0); Immature Granulocytes # (auto) 0.14 K/uL (0.00-0.02); Lymphocytes # (auto) 1.01 K/uL (1.2-3.4); Lymphocytes % (auto) 7.3 %; Mean Corpuscular Hemoglobin 32.3 pg (25.0-34.0); Mean Corpuscular Hgb Conc 35.1 g/dL (32.0-36.0); Mean Platelet Volume 9.2 fL (9.4-12.4); Monocytes # (auto) 0.92 K/uL (0.24-0.82); Monocytes % (auto) 6.7 %; Neutrophils # (auto) 11.54 K/uL (1.4-6.5); Neutrophils % (auto) 83.4 %; Platelet Count 296 K/uL (130-400); RDW Standard Deviation 40.7 fL (36.4-46.3); Red Blood Count 4.27 M/uL (4.63-6.08); White Blood Count 13.83 K/ul (4.8-10.8)
[2022-04-01 05:22] LABS: Albumin Level 3.9 gm/dl (3.4-5.0); BUN Creatinine Ratio 21.1 (10-20); Bilirubin Direct 0.2 mg/dl (0-0.2); Bilirubin,Total 0.7 mg/dl (0.2-1.0); Calcium 9.3 mg/dl (8.5-10.1); Creatinine Clr Calc Pharmacy 112.9 ml/min; Est GFR (African American) 111.1 ml/min; Est GFR (Non-African American) 95.8 ml/min; Magnesium 2.3 mg/dl (1.7-2.4); Potassium 4.7 mmol/L (3.5-5.1); Total Protein 8.1 gm/dl (6.0-8.3)
[2022-04-01] MEDS: dexMEDEtomidine 400 MCG/100 ML BAG IV SCH ×7 (06:14→23:55)
[2022-04-01] MEDS: ICU ELECTROLYTE REPLACEMENT PROTOCOL SCH ×2 (06:25→18:03)
[2022-04-01] MEDS ORDERED: PHENobarbital sodium 130 MG/ML VIAL IV PRN (07:40)
[2022-04-01] MEDS ORDERED: PHENobarbital sodium 65 MG/ML VIAL IV STA (07:40)
--- NOTE | 2022-04-01 08:07 | Critical Care Progress Note ---
Date of Service April 01, 2022 Assessment & Plan (1) ARDS (adult respiratory distress syndrome): Plan: ICU Assessment and Plans Reason Critically Ill: 22-year-old male here with PMHx medical marijuana usage who presented with seizure and who was admitted for [facility]. Neuro - Sedation: Precedex: Upper limit guardrail reached, Seroquel 100 mg twice daily, Geodon given overnight. Multiple doses of Ativan administered -Loading with phenobarbital: 500 mg x 1 then 250 mg every 3 hours x 2 doses then start oral at 9 PM this meeting Heavy alcohol dependence -Convert from CIWA to phenobarb Analgesia: PRN tylenol, motrin Acute Encephalopathy: Improved -MRI brain unremarkable. CT head negative. -Neurology consulted, seizure 03/24 likely 2/2 infection - EEG: severe nonspecific encephalopathy -lumbar puncture 03/27 CSF studies and meningitis panel negative, low concern meningitis -he has been off acyclovir since 03/25 4am -cefepime flyagyl azithromycin discontinued, switched to rocephin 03/28, dc'd and switched to cefazolin: To finish 7-day course Cardiac - Tachycardia -Propranolol 20 mg 3 times daily -Suspect secondary to anxiety and possible withdrawal Respiratory - ARDS: Resolved -Patient with ARDS essentially secondary to RSV and aspiration pneumonitis: Resolved -sputum culture MSSA: Finish 7-day course cefazolin -mechanically vented, extubation trial 03/29 failed, reintubated; extubation 03/31 failed, reintubated; self extubated 03/31 in the evening -Currently tolerating room air and saturating 96% Mucus Plugging -bronch 03/29 negative for mucus plugging GI - -speech evaluation today -Discontinue prophylactic PPI - discontinue bowel regime -ordered dignishield RENAL/LYTES - CARLEE -resolved, replace lytes as needed, continue to monitor -SUSANNE screen, ANCA screen and anti-GBM screen pending. - No concerns at this time. ENDO - No concerns at this time. HEME - Stable H&H. ID - Sepsis 2/2 MSSA pneumonia -cefepime Flagyl azithromycin discontinued, switched to rocephin 03/28, dc'd and switched to cefazolin for 10 days total abx -monitor fever curve, continue PRN tylenol motrin INTEGUMENTARY - skin clean dry intact LINES/IV ACCESS - PIVs intact. DVT PROPHYLAXIS - -lovenox (2) RSV (acute bronchiolitis due to respiratory syncytial virus): (3) HTN (hypertension): (4) Aspiration pneumonia: (5) Sepsis: (6) Acute encephalopathy: (7) Acute hypoxemic respiratory failure: (8) Seizure: (9) Marijuana abuse: (10) Acute kidney injury: Admission and Anticipated Discharge Date Admission Date: March 24, 2022 Supervising Physician Co-Signing Physician Notes I have personally spent 45 minutes of critical care time in the direct management of this patient. This is a life/limb threatening event. This includes time spent evaluating patient, direct bedside care, chart review, placing orders, interpretation of diagnostic studies, discussion with consultants, patient, and/or family members regarding treatment decisions, as well as other required patient management activities. This time is exclusive of all separately billable procedures, and teaching time and separate from and in addition to any other critical care service time. Subjective Notified the patient self extubated overnight, they were able to bridge him through the overnight into the morning. He has significantly improved mental status, there is still aspects of significant agitation however he is much more redirectable than he has been after the previous 2 extubations. Minimal recall of previous events. Alert and fairly appropriate. Still somewhat impulsive however significant improvement over the last episode. Physical Exam Physical Exam: General: Alert. Tremulous Skin: Warm, dry, Head: Atraumatic Ears, nose, mouth and throat: airway patent Cardiovascular: Normal peripheral perfusion, tachycardia noted on bedside monitor Respiratory: no respiratory distress, mild tachypnea however saturating 96% on room air Gastrointestinal: Non distended Musculoskeletal: No deformity Results & Data Results & Data ([facility]) Vital Signs (Past 12 Hours) Vital Signs Temp Pulse Pulse Resp BP Pulse Ox O2 Del Method 04/01/22 04:30 140 H 14 98 04/01/22 04:30 127/87 04/01/22 04:15 138 H 16 98 04/01/22 04:15 124/92 04/01/22 04:00 139 H 25 H 04/01/22 04:00 37.7 C H 118/84 04/01/22 03:45 141 H 36 H 04/01/22 03:45 125/81 04/01/22 03:30 142 H 26 H 04/01/22 03:30 119/91 04/01/22 03:15 132/87 04/01/22 03:15 140 H 17 98 04/01/22 03:00 147 H 41 H 97 04/01/22 03:00 123/81 04/01/22 02:45 131/72 04/01/22 02:45 145 H 38 H 04/01/22 02:30 144 H 36 H 04/01/22 02:30 134/86 04/01/22 02:15 121/85 04/01/22 02:15 38.6 C H 143 H 38 H 81 L 04/01/22 02:00 38.3 C H 139 H 35 H 98 04/01/22 02:00 140/88 04/01/22 01:45 146/91 H 04/01/22 01:45 38.6 C H 136 H 30 H 98 04/01/22 01:31 38.6 C H 144 H 32 H 100 04/01/22 01:31 131/112 H 04/01/22 01:30 38.7 C H 146 H 26 H 100 04/01/22 01:15 116/81 04/01/22 01:15 38.6 C H 143 H 36 H 04/01/22 01:00 38.7 C H 147 H 38 H 97 04/01/22 01:00 127/94 04/01/22 00:45 139/97 04/01/22 00:45 38.7 C H 157 H 27 H 96 04/01/22 00:15 38.6 C H 153 H 34 H 97 04/01/22 00:15 136/104 H 04/01/22 00:00 38.6 C H 151 H 33 H 98 04/01/22 00:00 131/100 03/31/22 23:30 38.5 C H 158 H 34 H 98 03/31/22 23:30 140/83 03/31/22 23:15 137/97 03/31/22 23:15 38.4 C H 158 H 18 95 04/01/22 03:23 138 H 25 H 98 High Flow Nasal Cannula 04/01/22 00:00 152 H 04/01/22 00:37 153 H 25 H 95 High Flow Nasal Cannula 03/31/22 23:00 38.4 C H 154 H 36 H 94 03/31/22 23:00 132/98 03/31/22 22:47 38.4 C H 151 H 17 95 03/31/22 22:47 154/88 H 03/31/22 22:31 38.4 C H 158 H 14 88 L 03/31/22 22:30 38.4 C H 152 H 16 92 03/31/22 22:16 139/93 03/31/22 22:16 38.3 C H 150 H 24 92 03/31/22 22:20 149 H 22 93 High Flow Nasal Cannula 03/31/22 22:04 38.5 C H 148 H 21 90 03/31/22 22:04 175/113 H 03/31/22 22:00 38.5 C H 155 H 21 94 03/31/22 21:45 38.8 C H 94 03/31/22 21:45 140/96 03/31/22 21:30 38.9 C H 156 H 93 03/31/22 21:30 133/94 03/31/22 21:15 39.0 C H 153 H 28 H 93 03/31/22 21:15 123/92 03/31/22 21:01 39.1 C H 166 H 14 96 03/31/22 21:01 135/87 03/31/22 21:00 39.1 C H 169 H 13 94 03/31/22 20:30 39.2 C H 169 H 29 H 96 03/31/22 20:30 131/99 03/31/22 20:00 39.2 C H 155 H 21 93 03/31/22 20:00 123/79 03/31/22 20:00 High Flow Nasal Cannula 03/31/22 21:13 170 H 28 H 95 High Flow Nasal Cannula O2 Flow Rate FiO2 04/01/22 04:30 04/01/22 04:30 04/01/22 04:15 04/01/22 04:15 04/01/22 04:00 04/01/22 04:00 04/01/22 03:45 04/01/22 03:45 04/01/22 03:30 04/01/22 03:30 04/01/22 03:15 04/01/22 03:15 04/01/22 03:00 04/01/22 03:00 04/01/22 02:45 04/01/22 02:45 04/01/22 02:30 04/01/22 02:30 04/01/22 02:15 04/01/22 02:15 04/01/22 02:00 04/01/22 02:00 04/01/22 01:45 04/01/22 01:45 04/01/22 01:31 04/01/22 01:31 04/01/22 01:30 04/01/22 01:15 04/01/22 01:15 04/01/22 01:00 04/01/22 01:00 04/01/22 00:45 04/01/22 00:45 04/01/22 00:15 04/01/22 00:15 04/01/22 00:00 04/01/22 00:00 03/31/22 23:30 03/31/22 23:30 03/31/22 23:15 03/31/22 23:15 04/01/22 03:23 40 50 04/01/22 00:00 04/01/22 00:37 60 70 03/31/22 23:00 03/31/22 23:00 03/31/22 22:47 03/31/22 22:47 03/31/22 22:31 03/31/22 22:30 03/31/22 22:16 03/31/22 22:16 03/31/22 22:20 60 70 03/31/22 22:04 03/31/22 22:04 03/31/22 22:00 03/31/22 21:45 03/31/22 21:45 03/31/22 21:30 03/31/22 21:30 03/31/22 21:15 03/31/22 21:15 03/31/22 21:01 03/31/22 21:01 03/31/22 21:00 03/31/22 20:30 03/31/22 20:30 03/31/22 20:00 03/31/22 20:00 03/31/22 20:00 70 03/31/22 21:13 60 60 Critical Care Results & Data Vital Signs (Past 12 Hours) Vital Signs Temp Pulse Pulse Resp BP Pulse Ox O2 Del Method 04/01/22 04:30 140 H 14 98 04/01/22 04:30 127/87 04/01/22 04:15 138 H 16 98 04/01/22 04:15 124/92 04/01/22 04:00 139 H 25 H 04/01/22 04:00 37.7 C H 118/84 04/01/22 03:45 141 H 36 H 04/01/22 03:45 125/81 04/01/22 03:30 142 H 26 H 04/01/22 03:30 119/91 04/01/22 03:15 132/87 04/01/22 03:15 140 H 17 98 04/01/22 03:00 147 H 41 H 97 04/01/22 03:00 123/81 04/01/22 02:45 131/72 04/01/22 02:45 145 H 38 H 04/01/22 02:30 144 H 36 H 04/01/22 02:30 134/86 04/01/22 02:15 121/85 04/01/22 02:15 38.6 C H 143 H 38 H 81 L 04/01/22 02:00 38.3 C H 139 H 35 H 98 04/01/22 02:00 140/88 04/01/22 01:45 146/91 H 04/01/22 01:45 38.6 C H 136 H 30 H 98 04/01/22 01:31 38.6 C H 144 H 32 H 100 04/01/22 01:31 131/112 H 04/01/22 01:30 38.7 C H 146 H 26 H 100 04/01/22 01:15 116/81 04/01/22 01:15 38.6 C H 143 H 36 H 04/01/22 01:00 38.7 C H 147 H 38 H 97 04/01/22 01:00 127/94 04/01/22 00:45 139/97 04/01/22 00:45 38.7 C H 157 H 27 H 96 04/01/22 00:15 38.6 C H 153 H 34 H 97 04/01/22 00:15 136/104 H 04/01/22 00:00 38.6 C H 151 H 33 H 98 04/01/22 00:00 131/100 03/31/22 23:30 38.5 C H 158 H 34 H 98 03/31/22 23:30 140/83 03/31/22 23:15 137/97 03/31/22 23:15 38.4 C H 158 H 18 95 04/01/22 03:23 138 H 25 H 98 High Flow Nasal Cannula 04/01/22 00:00 152 H 04/01/22 00:37 153 H 25 H 95 High Flow Nasal Cannula 03/31/22 23:00 38.4 C H 154 H 36 H 94 03/31/22 23:00 132/98 03/31/22 22:47 38.4 C H 151 H 17 95 03/31/22 22:47 154/88 H 03/31/22 22:31 38.4 C H 158 H 14 88 L 03/31/22 22:30 38.4 C H 152 H 16 92 03/31/22 22:16 139/93 03/31/22 22:16 38.3 C H 150 H 24 92 03/31/22 22:20 149 H 22 93 High Flow Nasal Cannula 03/31/22 22:04 38.5 C H 148 H 21 90 03/31/22 22:04 175/113 H 03/31/22 22:00 38.5 C H 155 H 21 94 03/31/22 21:45 38.8 C H 94 03/31/22 21:45 140/96 03/31/22 21:30 38.9 C H 156 H 93 03/31/22 21:30 133/94 03/31/22 21:15 39.0 C H 153 H 28 H 93 03/31/22 21:15 123/92 03/31/22 21:01 39.1 C H 166 H 14 96 03/31/22 21:01 135/87 03/31/22 21:00 39.1 C H 169 H 13 94 03/31/22 20:30 39.2 C H 169 H 29 H 96 03/31/22 20:30 131/99 03/31/22 21:13 170 H 28 H 95 High Flow Nasal Cannula O2 Flow Rate FiO2 04/01/22 04:30 04/01/22 04:30 04/01/22 04:15 04/01/22 04:15 04/01/22 04:00 04/01/22 04:00 04/01/22 03:45 04/01/22 03:45 04/01/22 03:30 04/01/22 03:30 04/01/22 03:15 04/01/22 03:15 04/01/22 03:00 04/01/22 03:00 04/01/22 02:45 04/01/22 02:45 04/01/22 02:30 04/01/22 02:30 04/01/22 02:15 04/01/22 02:15 04/01/22 02:00 04/01/22 02:00 04/01/22 01:45 04/01/22 01:45 04/01/22 01:31 04/01/22 01:31 04/01/22 01:30 04/01/22 01:15 04/01/22 01:15 04/01/22 01:00 04/01/22 01:00 04/01/22 00:45 04/01/22 00:45 04/01/22 00:15 04/01/22 00:15 04/01/22 00:00 04/01/22 00:00 03/31/22 23:30 03/31/22 23:30 03/31/22 23:15 03/31/22 23:15 04/01/22 03:23 40 50 04/01/22 00:00 04/01/22 00:37 60 70 03/31/22 23:00 03/31/22 23:00 03/31/22 22:47 03/31/22 22:47 03/31/22 22:31 03/31/22 22:30 03/31/22 22:16 03/31/22 22:16 03/31/22 22:20 60 70 03/31/22 22:04 03/31/22 22:04 03/31/22 22:00 03/31/22 21:45 03/31/22 21:45 03/31/22 21:30 03/31/22 21:30 03/31/22 21:15 03/31/22 21:15 03/31/22 21:01 03/31/22 21:01 03/31/22 21:00 03/31/22 20:30 03/31/22 20:30 03/31/22 21:13 60 60 Lab & Micro Results (Past 24 Hours) RBC 4.27 M/uL (4.63-6.08) L 04/01/22 WBC 13.83 K/ul (4.8-10.8) H 04/01/22 Hgb 13.8 g/dl (14.0-18.0) L 04/01/22 Hct 39.3 % (40.1-51.0) L 04/01/22 MCV 92.0 fL (80.0-100.0) 04/01/22 MCH 32.3 pg (25.0-34.0) 04/01/22 MCHC 35.1 g/dL (32.0-36.0) 04/01/22 RDW Standard Deviation 40.7 fL (36.4-46.3) 04/01/22 RDW Coefficient of Variation 12.0 % (11.5-14.5) 04/01/22 Plt Count 296 K/uL (130-400) 04/01/22 MPV 9.2 fL (9.4-12.4) L 04/01/22 Neutrophils (%) (Auto) 83.4 % 04/01/22 Lymphocytes (%) (Auto) 7.3 % 04/01/22 Monocytes # (Auto) 0.92 K/uL (0.24-0.82) H 04/01/22 Eosinophils # (Auto) 0.17 K/uL (0-0.50) 04/01/22 Immature Granulocyte % (Auto) 1.0 % 04/01/22 Neutrophils # (Auto) 11.54 K/uL (1.4-6.5) H 04/01/22 Lymphocytes # (Auto) 1.01 K/uL (1.2-3.4) L 04/01/22 Monocytes # (Auto) 0.92 K/uL (0.24-0.82) H 04/01/22 Eosinophils # (Auto) 0.17 K/uL (0-0.50) 04/01/22 Basophils # (Auto) 0.05 K/uL (0-0.2) 04/01/22 Immature Granulocyte # (Auto) 0.14 K/uL (0.00-0.02) H 04/01 Na 138 mmol/L (136-145) 04/01/22 K 4.7 mmol/L (3.5-5.1) 04/01/22 Cl 102 mmol/L (98-107) 04/01/22 CO2 23 mmol/L (21-32) 04/01/22 Anion Gap 13 (3-11) H 04/01/22 BUN 23 mg/dl (6-23) 04/01/22 Creatinine 1.09 mg/dl (0.6-1.4) 04/01/22 Estimated GFR ( Amer) 111.1 ml/min 04/01/22 Estimated GFR (Non-Af Amer) 95.8 ml/min 04/01/22 BUN/Creatinine Ratio 21.1 (10-20) H 04/01/22 Glu 104 mg/dl (70-99(Fasting)) H 04/01/22 Ca 9.3 mg/dl (8.5-10.1) 04/01/22 Phosphorus Level 4.0 mg/dl (2.5-4.9) 04/01/22 Total Bilirubin 0.7 mg/dl (0.2-1.0) 04/01/22 Direct Bilirubin 0.2 mg/dl (0-0.2) 04/01/22 AST 209 U/L (13-39) H 04/01/22 ALT 122 U/L (7-52) H 04/01/22 Alkaline Phosphatase 114 U/L (34-104) H 04/01/22 TP 8.1 gm/dl (6.0-8.3) 04/01/22 Albumin 3.9 gm/dl (3.4-5.0) 04/01/22 Mg 2.3 mg/dl (1.7-2.4) 04/01/22 04:42 Calcium Level 9.3 mg/dl (8.5-10.1) 04/01/22 04:42 Microbiology 03/26/22 19:10 Aerobic Blood Culture - Final Blood No growth in Aerobic bottle after 5 days. Anaerobic Blood Culture - Final No growth in Anaerobic bottle after 5 days. 03/26/22 19:11 Aerobic Blood Culture - Final Blood No growth in Aerobic bottle after 5 days. Anaerobic Blood Culture - Final Diagnostic Findings (Past 24 Hours) Chest X-Ray 03/31/22 09:37 XR chest 1V portable HISTORY: 22 years-old Male ett placement status post placement of endotracheal tube. Acute respiratory failure COMPARISON: Chest radiograph of same day at 6:41 AM TECHNIQUE: AP view of the chest FINDINGS: Cardiomediastinal and hilar silhouettes are unchanged. Endotracheal tube overlies the midline, 1.0 cm superior to the trever. Enteric tube courses into the stomach with distal tip outside the [id number]. Gaseous distention of the stomach is new from prior. No pneumothorax. Pulmonary vascular congestion, improved. Trace left and small right pleural effusions with decreased bibasilar opacities. IMPRESSION: 1. Lines and tubes as above with low-lying endotracheal tube. 2. Slightly improved pulmonary vascular congestion with improving bibasilar opacities. 3. Trace left and small right pleural effusions. 4. No pneumothorax identified. ACT 112: Negative or not required by law. The above report was generated using voice recognition software. It may contain grammatical, syntax or spelling errors. Electronically signed by: Jos Marin M.D. 03/31/2022 10:34 AM Venous Doppler Study 03/31/22 09:49 BILATERAL LOWER EXTREMITY VENOUS DOPPLER CLINICAL HISTORY: Respiratory failure. Evaluate for deep venous thrombus. COMPARISON STUDY: No previous studies for comparison. TECHNIQUE: Sonography of the deep venous system of the bilateral lower extremities was performed. Compression and augmentation were evaluated. FINDINGS: The bilateral common femoral, superficial femoral and popliteal veins were compressible. Augmentation was normal. Flow was shown within the deep calf vessels. IMPRESSION: No evidence of deep venous thrombus within the bilateral lower extremities. ACT 112: Negative or not required by law. Electronically signed by: Tyler Shepard M.D. 03/31/2022 11:[address] 03/31/22 16:33 CT SCAN OF THE CHEST WITH IV CONTRAST CLINICAL HISTORY: Pneumonia. Fever. COMPARISON STUDY: Chest x-ray dated 03/31/2022. Chest CT dated 03/24/2022. TECHNIQUE: Following the IV administration of 85 cc of Optiray 350, CT scan of the thorax was performed from the thoracic inlet to the upper abdomen. Images are reviewed in the axial, sagittal, and coronal planes. IV contrast was administered without complication. A dose lowering technique was utilized adhering to the principles of ALARA. The examination is degraded by motion artifact, as well as by streak artifact from the arms which could not be elbowed of the chest. CT DOSE: 842.45 mGy.cm FINDINGS: Thyroid: Imaged portions of the thyroid gland are normal in size and attenuation. Thoracic aorta: The thoracic aorta is normal in caliber and demonstrates bovine variant arch anatomy. No dissection is seen. Pulmonary vasculature: The pulmonary trunk is normal in caliber. There are no filling defects identified in the central pulmonary vessels to indicate pulmonary embolus. Note that this examination was not protocoled for evaluation of the pulmonary arteries. Heart: The heart is top normal noting trace pericardial effusion. Lungs and pleural spaces: An endotracheal tube terminates above the trever. The trachea and central airways appear clear. Evaluation of the lung parenchyma is degraded by motion artifact. Dense airspace consolidation is seen to the lower lobes bilaterally and there are trace bilateral pleural effusions. Patchy airspace consolidation is seen in the upper lobes, right greater than left. No pneumothorax is identified. No peripherally enhancing pulmonary or pleural-based fluid collection is seen. Mediastinum: There are numerous subcentimeter mediastinal lymph nodes. Stefani: Clear. Axillae: There is no axillary lymphadenopathy. Upper abdomen: An enteric tube extends below the diaphragm into the stomach. The spleen is mildly enlarged measuring at least 13.7 cm in length. Skeletal structures: No lytic or blastic bony lesions are seen. IMPRESSION: 1. There is dense bilateral lower lobe airspace consolidation with milder patchy consolidation throughout the upper lobes. The appearance is typical for pneumonia/aspiration pneumonitis. This has somewhat worsened as compared to 03/24/2022. Radiographic follow-up to resolution is recommend. 2. Trace pleural effusions. 3. Endotracheal and enteric tubes are in place. 4. Additional findings as above. ACT 112: Negative or not required by law. Electronically signed by: Luis Contreras M.D. 03/31/2022 5:38 PM I & O Totals 24 Hours 03/31/22 04/01/22 04/02/22 06:59 06:59 06:59 Intake Total 5644.274 / 5644.274 2180.975 / 2180.975 30.837 / 30.837 Output Total 3000 / 3000 5050 / 5050 Balance 2644.274 / 2644.274 -2869.025 / -2869.025 30.837 / 30.837 Cumulative 03/24/22 12:59 thru 04/01/22 07:12 Intake Total 29265.721 Output Total 93961 Balance 7555.721 RT Ventilator Mngmt (Last Documented) Ventilator Ordered Settings Ventilator Support Mode Assist Control 03/31/22 15:57 Respiratory Rate 14 04/01/22 04:30 Ventilator Tidal Volume 450 03/31/22 15:57 Setting Minute Ventilation 12.0 03/31/22 15:00 Positive End Expiratory 6 03/31/22 15:57 Pressure Fraction of Inspired Oxygen 50 04/01/22 03:23 Peak Inspiratory Flow 34 03/26/22 15:35 Machine Comment decreased PEEP to 8 03/29/22 23:19 Ventilator - PT Measurements Respiratory Rate 14 Exhaled Tidal Volume 452 Minute Ventilation 12.0 Peak Inspiratory Airway 18 Pressure Plateau Pressure 16 Respiratory Cycle Inspiratory: 1:2.0 Expiratory Ratio Inspiratory Phase Time 1 End-Tidal CO2 38 Static Lung Compliance 45.20 Dynamic Lung Compliance 37.67 Normal Static Lung Compliance 48.00 Patient Measurements Comment nurse aware of HR. Coding Level of Care Code Critical Care 1st 30-74 mins Diagnoses ARDS (adult respiratory distress syndrome) J80 RSV (acute bronchiolitis due to respiratory syncytial virus) J21.0 HTN (hypertension) I10 Aspiration pneumonia J69.0 Sepsis A41.9 Acute encephalopathy G93.40 Acute hypoxemic respiratory failure J96.01 Seizure R56.9 Marijuana abuse F12.10 Acute kidney injury N17.9
[2022-04-01] MEDS: ENOXAPARIN INJ 40 MG/0.4 ML SYR SQ SCH (08:26)
[2022-04-01] MEDS ORDERED: PHENobarbital sodium 65 MG/ML VIAL IV SCH (11:00)
[2022-04-01] MEDS: PHENOBARBITAL SODIUM IV SCH ×3 (11:05→20:02)
[2022-04-01] MEDS: QUEtiapine FUMARATE 100 MG TABLET PO SCH ×2 (11:06→23:08)
[2022-04-01] MEDS: MULTI VIT W/MINERALS LIQUID 15 ML UDP PO SCH (11:06)
[2022-04-01] MEDS: PROPRANOLOL HCL 20 MG TAB PO SCH ×3 (11:06→23:07)
[2022-04-01] MEDS: THIAMINE HCL 100 MG TAB PO SCH (11:06)
--- NOTE | 2022-04-01 11:54 | Hospitalist Progress Note ---
Date of Service April 01, 2022 Assessment & Plan (1) Agitation: Plan: Both episodes of extubation, the patient became agitated and violent, requiring re-intubation for his safety and safety of staff. - Now extubated. Some concern for alcohol withdrawal as etiology of his agitation. -> ICU treating with phenobarb PO & IV PRN (2) Acute hypoxemic respiratory failure: Plan: ARDS and acute hypoxic respiratory failure, CXRs suggest aspiration pneumonia. RSV was also positive on admission. Vent suction sputum cx from 03/25 growing MSSA. Extubated on 03/29, but then re-intubated after approx. 2 hours due to laryngospasm, respiratory distress, and hypoxemia. - Extubated again on 03/31. Had great O2 saturation per RN (~95%), but became agitated, violent, and required re-intubation. - Self-extubated on 04/01. - Currently on cefazolin for MSSA pneumonia. - Appreciate Critical care -> Presently now stable on room air. (3) Hypotension: Plan: After re-intubation on 03/29, patient became hypotensive. Likely due to sedation requirements and possibly some hypovolemia. - Required Levophed for approx. 12 hours. Off by 10pm on 03/29. (4) Seizure: Plan: Patient was brought to the hospital after a seizure, no previous history of se izure according to his mother. Observed seizure activity while in the ER, initial lactate & prolactin elevated. Patient reported he uses about 7g of marijuana daily and also drinks daily alcohol. Extreme agitation in ER required intubation and sedation MRI brain essentially wnl, no suggestion of encephalitis, no meningeal enhancement. Initially empirically covered with acyclovir/azithrom ycin/ceftriaxone/vancomycin/dexamethasone - LP on 03/27 with negative BioFire panel. CSF culture pending. De-escalated abx to cefazolin per ICU attending. (5) Aspiration pneumonia: Plan: Following seizure. - As above (6) HTN (hypertension): Plan: Prior elevated blood pressure, no diagnosis of HTN. Presently low-normal at 105/76. - IV PRN meds for BP control (7) Delirium: Plan: Infectious encephalopathy with possible alcohol withdrawal. - Conservative measures. As above (8) DVT prophylaxis: Plan: Lovenox 40 mg SQ daily Admission and Anticipated Discharge Date Admission Date: March 24, 2022 Subjective Doing some better today. Not overt agitated, though clearly delirious as he asks "if [I] am responsible for the manufacture of that device?" while pointing at the toilet. He then asks me to make him a smoothy. Reports no fevers/chills, chest pain, shortness of breath, abdominal pain, nausea, or vomiting. Physical Exam Constitutional: WD/WN, vitals as above Eyes: EOM intact bilaterally; no conjunctival abnormality ENMT: external ear and nose normal, oropharynx normal Neck: trachea midline, no thyromegaly normal visual inspection Respiratory: normal respiratory effort, lungs clear to auscultation no respiratory distress Cardiovascular: Rate/Rhythm: regular rhythm and + tachycardic Heart Sounds: normal S1 and normal S2 Gastrointestinal (Abdomen): Inspection/Auscultation: abdomen normal to inspection; abdomen not distended Musculoskeletal: no cyanosis or clubbing, extremities motor strength 5/5 Skin: no rashes, warm and dry Neurologic: moves all extremities and awake Psychiatric: Orientation: alert, oriented to person and cooperative; + not oriented to place and + not oriented to time Results & Data Results & Data ([facility]) Vital Signs (Past 12 Hours) Vital Signs Temp Pulse Pulse Resp BP Pulse Ox O2 Del Method 04/01/22 08:00 Room Air 04/01/22 04:30 140 H 14 98 04/01/22 04:30 127/87 04/01/22 04:15 138 H 16 98 04/01/22 04:15 124/92 04/01/22 04:00 139 H 25 H 04/01/22 04:00 37.7 C H 118/84 04/01/22 03:45 141 H 36 H 04/01/22 03:45 125/81 04/01/22 03:30 142 H 26 H 04/01/22 03:30 119/91 04/01/22 03:15 132/87 04/01/22 03:15 140 H 17 98 04/01/22 03:00 147 H 41 H 97 04/01/22 03:00 123/81 04/01/22 02:45 131/72 04/01/22 02:45 145 H 38 H 04/01/22 02:30 144 H 36 H 04/01/22 02:30 134/86 04/01/22 02:15 121/85 04/01/22 02:15 38.6 C H 143 H 38 H 81 L 04/01/22 02:00 38.3 C H 139 H 35 H 98 04/01/22 02:00 140/88 04/01/22 01:45 146/91 H 04/01/22 01:45 38.6 C H 136 H 30 H 98 04/01/22 01:31 38.6 C H 144 H 32 H 100 04/01/22 01:31 131/112 H 04/01/22 01:30 38.7 C H 146 H 26 H 100 04/01/22 01:15 116/81 04/01/22 01:15 38.6 C H 143 H 36 H 04/01/22 01:00 38.7 C H 147 H 38 H 97 04/01/22 01:00 127/94 04/01/22 00:45 139/97 04/01/22 00:45 38.7 C H 157 H 27 H 96 04/01/22 00:15 38.6 C H 153 H 34 H 97 04/01/22 00:15 136/104 H 04/01/22 00:00 38.6 C H 151 H 33 H 98 04/01/22 00:00 131/100 04/01/22 03:23 138 H 25 H 98 High Flow Nasal Cannula 04/01/22 00:00 152 H 04/01/22 00:37 153 H 25 H 95 High Flow Nasal Cannula O2 Flow Rate FiO2 04/01/22 08:00 04/01/22 04:30 04/01/22 04:30 04/01/22 04:15 04/01/22 04:15 04/01/22 04:00 04/01/22 04:00 04/01/22 03:45 04/01/22 03:45 04/01/22 03:30 04/01/22 03:30 04/01/22 03:15 04/01/22 03:15 04/01/22 03:00 04/01/22 03:00 04/01/22 02:45 04/01/22 02:45 04/01/22 02:30 04/01/22 02:30 04/01/22 02:15 04/01/22 02:15 04/01/22 02:00 04/01/22 02:00 04/01/22 01:45 04/01/22 01:45 04/01/22 01:31 04/01/22 01:31 04/01/22 01:30 04/01/22 01:15 04/01/22 01:15 04/01/22 01:00 04/01/22 01:00 04/01/22 00:45 04/01/22 00:45 04/01/22 00:15 04/01/22 00:15 04/01/22 00:00 04/01/22 00:00 04/01/22 03:23 40 50 04/01/22 00:00 04/01/22 00:37 60 70 PG Care Time/CCT Total # of Minutes Spent Total Time Spent with Patient: Total time spent is greater than 50% in coordination of care (as documented) at patient's floor/unit and/or counseling patient: Coding Level of Care Code 31027 Subseq Hosp Care Lvl 3 Diagnoses Agitation R45.1 Acute hypoxemic respiratory failure J96.01 Hypotension I95.9 Seizure R56.9 Aspiration pneumonia J69.0 HTN (hypertension) I10 Delirium R41.0 DVT prophylaxis Z29.9
[2022-04-01] MEDS ORDERED: PHENobarbital sodium 130 MG/ML VIAL IV SCH (21:00)
[2022-04-01] MEDS ORDERED: PHENobarbitaL 30 MG TAB PO SCH (21:00)
[2022-04-02] MEDS: dexMEDEtomidine 400 MCG/100 ML BAG IV SCH ×2 (03:05→06:11)
[2022-04-02] MEDS: ceFAZolin 2,000 MG in SYRINGE 0 ML IV SCH ×3 (04:44→21:15)
[2022-04-02 05:12] LABS: Basophils # (auto) 0.08 K/uL (0-0.2); Basophils % (auto) 0.9 %; Eosinophils # (auto) 0.53 K/uL (0-0.50); Eosinophils % (auto) 6.2 %; Hematocrit (blood only) 37.9 % (40.1-51.0); Hemoglobin 12.9 g/dl (14.0-18.0); Immature Granulocytes # (auto) 0.15 K/uL (0.00-0.02); Immature Granulocytes % (auto) 1.7 %; Lymphocytes # (auto) 1.71 K/uL (1.2-3.4); Lymphocytes % (auto) 19.9 %; Mean Corpuscular Hemoglobin 31.8 pg (25.0-34.0); Mean Corpuscular Volume 93.3 fL (80.0-100.0); Mean Platelet Volume 9.6 fL (9.4-12.4); Monocytes # (auto) 0.93 K/uL (0.24-0.82); Monocytes % (auto) 10.8 %; Neutrophils # (auto) 5.21 K/uL (1.4-6.5); Neutrophils % (auto) 60.5 %; Platelet Count 297 K/uL (130-400); RDW Coefficient of Variation 11.9 % (11.5-14.5); RDW Standard Deviation 41.1 fL (36.4-46.3); Red Blood Count 4.06 M/uL (4.63-6.08); White Blood Count 8.61 K/ul (4.8-10.8)
[2022-04-02 05:29] LABS: BUN Creatinine Ratio 37.9 (10-20); Calcium 9.5 mg/dl (8.5-10.1); Creatinine Clr Calc Pharmacy 119.5 ml/min; Est GFR (Non-African American) 102.6 ml/min; Magnesium 2.3 mg/dl (1.7-2.4); Phosphorus 3.3 mg/dl (2.5-4.9); Potassium 4.2 mmol/L (3.5-5.1)
[2022-04-02] MEDS: ICU ELECTROLYTE REPLACEMENT PROTOCOL SCH ×2 (06:50→17:53)
--- NOTE | 2022-04-02 08:13 | Critical Care Progress Note ---
Date of Service April 02, 2022 Assessment & Plan (1) ARDS (adult respiratory distress syndrome): Plan: ICU Assessment and Plans Reason Critically Ill: 22-year-old male admitted for acute hypoxic respiratory failure Neuro - Sedation: Discontinued Heavy alcohol dependence -Continue IV phenobarb until cleared to take orals Analgesia: PRN tylenol, motrin Acute Encephalopathy: Improved -MRI brain unremarkable. CT head negative. -Neurology consulted, seizure 03/24 likely 2/2 infection - EEG: severe nonspecific encephalopathy -lumbar puncture 03/27 CSF studies and meningitis panel negative, low concern meningitis Cardiac - Tachycardia: Significantly improved Respiratory - ARDS: Resolved -Patient with ARDS essentially secondary to RSV and aspiration pneumonitis: Resolved -sputum culture MSSA: Has received 10 days of effective antibiotic therapy. Would continue with cefazolin until hospital discharge or 7 days Tolerating room air Mucus Plugging -bronch 03/29 negative for mucus plugging GI - -waiting follow-up for speech evaluation -Discontinue prophylactic PPI - discontinue bowel regime -ordered dignishield RENAL/LYTES - CARLEE -resolved, replace lytes as needed, continue to monitor -SUSANNE screen, ANCA screen and anti-GBM screen pending. - No concerns at this time. ENDO - No concerns at this time. HEME - Stable H&H. ID - Per pulmonary above INTEGUMENTARY - skin clean dry intact LINES/IV ACCESS - PIVs intact. DVT PROPHYLAXIS - -lovenox Stable for downgrade out of ICU. (2) RSV (acute bronchiolitis due to respiratory syncytial virus): (3) HTN (hypertension): (4) Aspiration pneumonia: (5) Sepsis: (6) Acute encephalopathy: (7) Acute hypoxemic respiratory failure: (8) Seizure: (9) Marijuana abuse: (10) Acute kidney injury: Admission and Anticipated Discharge Date Admission Date: March 24, 2022 Subjective Significantly improved mental status as well as compliance. Reports he did not realize he has spent 14 days in the hospital. Today is hosptial day 10. Reports he would like to leave today. I advised he would be good for downgrade out of the ICU, but would benefit from remaining in the hospital at this time. Physical Exam Physical Exam: General: Alert. nontoxic. Skin: Warm, dry, Head: Atraumatic Ears, nose, mouth and throat: airway patent Cardiovascular: Normal peripheral perfusion, mild tachycardia on bedside monitor Respiratory: no respiratory distress Gastrointestinal: Non distended Musculoskeletal: No deformity Results & Data Results & Data ([facility]) Vital Signs (Past 12 Hours) Vital Signs Temp Pulse Resp BP Pulse Ox 04/02/22 05:00 80 29 H 04/02/22 05:00 105/72 04/02/22 04:00 81 28 H 04/02/22 04:00 36.8 C 106/74 04/02/22 03:01 83 17 92 04/02/22 03:01 120/89 04/02/22 03:00 84 21 93 04/02/22 02:00 80 18 04/02/22 02:00 36.7 C 116/72 04/02/22 01:00 85 26 H 04/02/22 01:00 107/83 04/02/22 00:00 89 30 H 04/02/22 00:00 36.8 C 108/69 04/01/22 23:00 90 20 04/01/22 23:00 112/80 04/01/22 22:00 91 H 28 H 04/01/22 22:00 119/79 04/01/22 21:00 37.2 C 102 H 34 H 04/01/22 21:00 105/79 04/02/22 00:00 87 Coding Level of Care Code 85731 Subseq Hosp Care Lvl 3 Diagnoses ARDS (adult respiratory distress syndrome) J80 RSV (acute bronchiolitis due to respiratory syncytial virus) J21.0 HTN (hypertension) I10 Aspiration pneumonia J69.0 Sepsis A41.9 Acute encephalopathy G93.40 Acute hypoxemic respiratory failure J96.01 Seizure R56.9 Marijuana abuse F12.10 Acute kidney injury N17.9
[2022-04-02] MEDS: QUEtiapine FUMARATE 100 MG TABLET PO SCH (08:42)
[2022-04-02] MEDS: THIAMINE HCL 100 MG TAB PO SCH (08:42)
[2022-04-02] MEDS: MULTI VIT W/MINERALS LIQUID 15 ML UDP PO SCH (08:42)
[2022-04-02] MEDS: PROPRANOLOL HCL 20 MG TAB PO SCH ×2 (08:42→13:25)
[2022-04-02] MEDS: ENOXAPARIN INJ 40 MG/0.4 ML SYR SQ SCH (08:44)
[2022-04-02] MEDS: PHENOBARBITAL SODIUM IV SCH (08:44)
--- NOTE | 2022-04-02 16:56 | Hospitalist Progress Note ---
Date of Service April 02, 2022 Assessment & Plan (1) Acute hypoxemic respiratory failure: Plan: ARDS and acute hypoxic respiratory failure, CXRs suggest aspiration pneumonia. RSV was also positive on admission. Vent suction sputum cx from 03/25 growing MSSA. Extubated on 03/29, but then re-intubated after approx. 2 hours due to laryngospasm, respiratory distress, and hypoxemia. - Extubated again on 03/31. Had great O2 saturation per RN (~95%), but became agitated, violent, and required re-intubation. - Self-extubated on 04/01. - Currently on cefazolin for MSSA pneumonia. -> Presently now stable on room air. Dispo: Discharge tomorrow with family. Must determine length of abx. Has been on cefazolin for 5 days, but probably will want longer course given severity of illness. Maybe an additional 5 days? (2) Agitation: Plan: Both episodes of extubation, the patient became agitated and violent, requiring re-intubation for his safety and safety of staff. - Now extubated. Concern for alcohol withdrawal as etiology of his agitation. -> ICU treated with phenobarb PO & IV PRN - No more indication of withdrawals. Given phenobarb half-life, will likely not need further tapering. (3) Hypotension: Plan: After re-intubation on 03/29, patient became hypotensive. Likely due to sedation requirements and possibly some hypovolemia. - Required Levophed for approx. 12 hours. Off by 10pm on 03/29. (4) Seizure: Plan: Patient was brought to the hospital after a seizure, no previous history of seizure according to his mother. Observed seizure activity while in the ER, initial lactate & prolactin elevated. Patient reported he uses about 7g of marijuana daily and also drinks daily alcohol. Extreme agitation in ER required intubation and sedation MRI brain essentially wnl, no suggestion of encephalitis, no meningeal enhancement. Initially empirically covered with acyclovir/azithromycin/ceftriaxone/vancomycin/dexamethasone - LP on 03/27 with negative BioFire panel. CSF culture pending. De-escalated abx to cefazolin per ICU attending. (5) Aspiration pneumonia: Plan: Following seizure. - As above (6) HTN (hypertension): Plan: Prior elevated blood pressure, no diagnosis of HTN. Presently low-normal at 125/76. - IV PRN meds for BP control (7) Delirium: Plan: Infectious encephalopathy with possible alcohol withdrawal. - Conservative measures. As above (8) DVT prophylaxis: Plan: Lovenox 40 mg SQ daily Admission and Anticipated Discharge Date Admission Date: March 24, 2022 Subjective Radically better today. Breathing comfortably on room air. Chatting with friends. Doing well. Reports no fevers/chills, chest pain, shortness of breath, abdominal pain, nausea, or vomiting. Physical Exam Constitutional: WD/WN, vitals as above Eyes: EOM intact bilaterally; no conjunctival abnormality ENMT: external ear and nose normal, oropharynx normal Neck: trachea midline, no thyromegaly normal visual inspection Respiratory: normal respiratory effort, lungs clear to auscultation no respiratory distress Cardiovascular: RRR, no murmur, no edema Heart Sounds: normal S1 and normal S2 Gastrointestinal (Abdomen): Inspection/Auscultation: abdomen normal to inspection; abdomen not distended Musculoskeletal: no cyanosis or clubbing, extremities motor strength 5/5 Skin: no rashes, warm and dry Neurologic: moves all extremities and awake Psychiatric: Orientation: alert, oriented to person, oriented to place, oriented to time and cooperative Results & Data Results & Data ([facility]) Vital Signs (Past 12 Hours) Vital Signs Temp Pulse Pulse Resp BP BP Pulse Ox 04/02/22 14:01 110 H 25 H 153/98 H 100 04/02/22 13:00 113 H 21 113/98 97 04/02/22 16:00 110 H 04/02/22 16:09 36.9 C 106 H 22 124/88 97 04/02/22 12:00 110 H 18 113/98 94 04/02/22 10:01 114 H 24 140/113 H 97 04/02/22 09:00 97 H 24 115/76 04/02/22 08:01 104 H 20 116/98 04/02/22 07:00 80 22 119/69 04/02/22 08:00 76 04/02/22 05:00 80 29 H 04/02/22 05:00 105/72 O2 Del Method 04/02/22 14:01 04/02/22 13:00 04/02/22 16:00 04/02/22 16:09 Room Air 04/02/22 12:00 04/02/22 10:01 04/02/22 09:00 04/02/22 08:01 04/02/22 07:00 Room Air 04/02/22 08:00 04/02/22 05:00 04/02/22 05:00 PG Care Time/CCT Total # of Minutes Spent Total Time Spent with Patient: Total time spent is greater than 50% in coordination of care (as documented) at patient's floor/unit and/or counseling patient: Coding Level of Care Code 40635 Subseq Hosp Care Lvl 3 Diagnoses Acute hypoxemic respiratory failure J96.01 Agitation R45.1 Hypotension I95.9 Seizure R56.9 Aspiration pneumonia J69.0 HTN (hypertension) I10 Delirium R41.0 DVT prophylaxis Z29.9
[2022-04-02] MEDS ORDERED: QUEtiapine FUMARATE 25 MG TABLET PO SCH (21:00)
--- NOTE | 2022-04-02 21:27 | Electrocardiogram Report ---
Test Reason : Blood Pressure : / mmHG Vent. Rate : 154 BPM Atrial Rate : 154 BPM P-R Int : 114 ms QRS Dur : 072 ms QT Int : 266 ms P-R-T Axes : 065 060 046 degrees QTc Int : 426 ms Poor data quality, interpretation may be adversely affected Sinus tachycardia Otherwise normal ECG When compared with ECG of 29-MAR-2022 09:24, Vent. rate has increased BY 53 BPM Nonspecific T wave abnormality no longer evident in Anterior leads Confirmed by Demarcus Yoon ([id number] on 04/02/2022 9:26:31 PM Referred By: REFERRED SELF Confirmed By:Demarcus Yoon
[2022-04-03] MEDS: ceFAZolin 2,000 MG in SYRINGE 0 ML IV SCH ×2 (03:31→11:50)
[2022-04-03] MEDS ORDERED: PHENobarbitaL 30 MG TAB PO SCH (09:00)
[2022-04-03 09:03] LABS: Basophils # (auto) 0.07 K/uL (0-0.2); Basophils % (auto) 0.8 %; Eosinophils # (auto) 0.31 K/uL (0-0.50); Eosinophils % (auto) 3.7 %; Hematocrit (blood only) 36.7 % (40.1-51.0); Hemoglobin 12.7 g/dl (14.0-18.0); Immature Granulocytes % (auto) 3.6 %; Lymphocytes # (auto) 1.85 K/uL (1.2-3.4); Mean Corpuscular Hemoglobin 31.8 pg (25.0-34.0); Mean Corpuscular Hgb Conc 34.6 g/dL (32.0-36.0); Mean Platelet Volume 9.3 fL (9.4-12.4); Monocytes # (auto) 0.81 K/uL (0.24-0.82); Monocytes % (auto) 9.6 %; Neutrophils # (auto) 5.06 K/uL (1.4-6.5); Neutrophils % (auto) 60.3 %; Platelet Count 345 K/uL (130-400); RDW Coefficient of Variation 11.7 % (11.5-14.5); RDW Standard Deviation 39.3 fL (36.4-46.3); Red Blood Count 3.99 M/uL (4.63-6.08)
--- NOTE | 2022-04-03 09:13 | Hospitalist Progress Note ---
Date of Service April 03, 2022 Assessment & Plan (1) Acute hypoxemic respiratory failure: Plan: ARDS and acute hypoxic respiratory failure, CXRs suggest aspiration pneumonia. RSV was also positive on admission. Vent suction sputum cx from 03/25 growing MSSA. Extubated on 03/29, but then re-intubated after approx. 2 hours due to laryngospasm, respiratory distress, and hypoxemia. - Extubated again on 03/31. Had great O2 saturation per RN (~95%), but became agitated, violent, and required re-intubation. - Self-extubated on 04/01. - Currently on cefazolin for MSSA pneumonia. -> Presently now stable on room air. Dispo: Discharge tomorrow with family. Must determine length of abx. Has been on cefazolin for 5 days, but probably will want longer course given severity of illness. Maybe an additional 5 days? (2) Agitation: Plan: Both episodes of extubation, the patient became agitated and violent, requiring re-intubation for his safety and safety of staff. - Now extubated. Concern for alcohol withdrawal as etiology of his agitation. -> ICU treated with phenobarb PO & IV PRN - No more indication of withdrawals. Given phenobarb half-life, will likely not need further tapering. (3) Hypotension: Plan: After re-intubation on 03/29, patient became hypotensive. Likely due to sedation requirements and possibly some hypovolemia. - Required Levophed for approx. 12 hours. Off by 10pm on 03/29. (4) Seizure: Plan: Patient was brought to the hospital after a seizure, no previous history of seizure according to his mother. Observed seizure activity while in the ER, initial lactate & prolactin elevated. Patient reported he uses about 7g of marijuana daily and also drinks daily alcohol. Extreme agitation in ER required intubation and sedation MRI brain essentially wnl, no suggestion of encephalitis, no meningeal enhancement. Initially empirically covered with acyclovir/azithromycin/ceftriaxone/vancomycin/dexamethasone - LP on 03/27 with negative BioFire panel. CSF culture pending. De-escalated abx to cefazolin per ICU attending. (5) Aspiration pneumonia: Plan: Following seizure. - As above (6) HTN (hypertension): Plan: Prior elevated blood pressure, no diagnosis of HTN. Presently low-normal at 125/76. - IV PRN meds for BP control (7) Delirium: Plan: Infectious encephalopathy with possible alcohol withdrawal. - Conservative measures. As above (8) DVT prophylaxis: Plan: Lovenox 40 mg SQ daily Admission and Anticipated Discharge Date Admission Date: March 24, 2022 Results & Data Results & Data ([facility]) Vital Signs (Past 12 Hours) Vital Signs Temp Pulse Resp BP Pulse Ox O2 Del Method 04/03/22 08:00 Room Air 04/03/22 08:13 98.2 F 84 17 122/78 98 Room Air PG Care Time/CCT Total # of Minutes Spent Total Time Spent with Patient: Total time spent is greater than 50% in coordination of care (as documented) at patient's floor/unit and/or counseling patient: Coding Diagnoses Acute hypoxemic respiratory failure J96.01 Agitation R45.1 Hypotension I95.9 Seizure R56.9 Aspiration pneumonia J69.0 HTN (hypertension) I10 Delirium R41.0 DVT prophylaxis Z29.9
[2022-04-03] MEDS: ENOXAPARIN INJ 40 MG/0.4 ML SYR SQ SCH (09:17)
[2022-04-03 09:37] LABS: BUN Creatinine Ratio 31.9 (10-20); Calcium 8.9 mg/dl (8.5-10.1); Creatinine Clr Calc Pharmacy 135.2 ml/min; Est GFR (African American) 138.2 ml/min; Est GFR (Non-African American) 119.2 ml/min; Magnesium 2.2 mg/dl (1.7-2.4); Phosphorus 2.9 mg/dl (2.5-4.9); Potassium 3.8 mmol/L (3.5-5.1)
--- NOTE | 2022-04-03 11:33 | Discharge Summary ---
Date of Service April 03, 2022 Admission HPI Per Admitting Provider Elías is a 22-year-old male who resents with altered mental status and who was found down, and on arrival to the ER was actively seizing. Patient was reportedly with altered behavior and increased anxiety for 1 day. 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 He received 200 mg of ketamine, 75 mg of Benadryl, and a total of 5 mg of Ativan and still remained extremely combative. Patient rec eived 20 mg of etomidate, another 100 mg of ketamine, and required rocuronium and intubation for sedation and airway protection. He was loaded with 1 g of Keppra for observed seizure on entry. Urine tox is pending. CThead is pending EKG: Sinus tachycardia, rate 110. No ST segment changes. No T wave inversions. History unable to be obtained the patient did intubation and sedation. Did talk to patient's brother and mother by phone. Patient's mother is Latrice Contreras available at [phone], who lives in [place] and is currently in route to the hospital. She reports that he is otherwise healthy with no chronic medical problems. Did have acne on Accutane as a teenager and history of some bloody noses in childhood, otherwise no medical problems and takes no regular medications. No known medication allergies. Occasional social alcohol use, marijuana use, no known recreational drug/heart drug use. No personal or family history of seizures. No family history of early PR, encephalopathy, heart/lung/renal disease. 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 Per report he was last normal yesterday evening and has had no fever, chills, cough and was not complaining of infectious symptoms or being ill leading up to his hospitalization. Per brother has vape in the past but has not in the last couple of months. Per patient's remain he has never seen the patient vape Medical History: Reviewed Medications: Reviewed Surgical History: Reviewed Allergies: Reviewed Social History: Social alcohol, marijuana use. No known heart drug/recreational drug use Code Status: Full code Principal Diagnosis acute hypoxic respiratory failure secondary to seizure pneumonia cannabis abuse alcohol use Discharge Exam The patient appeared stable Vital signs as documented. Lungs are clear to auscultation and appear unlabored Cardiac exam, Rhythm is regular.. No murmurs, rubs or gallops. Abdominal exam reveals normal bowel sounds, soft non tender, no masses Extremities are nonedematous and both pedal pulses are normal. Neurologic exam is alert and oriented, no focal loss of strength or sensation Skin is without bruises or rashes Psychologically is without concerns for anxiety or depression. Discharge Data Allergies Allergy/AdvReac Type Severity Reaction Status Date / Time No Known Allergies Allergy Verified 03/24/22 15:13 Consultations 03/24/22 16:28 ED Decision to Admit Stat 03/24/22 18:29 Consult Independent Jeweler Routine 03/25/22 07:11 Consult Neurology Routine Ordered Studies 03/24/22 14:02 CT head/brain wo con Stat 03/24/22 18:13 CT chest diagnostic wo con Routine 03/24/22 18:42 MR brain wo/w con Stat 03/25/22 09:13 US Renal Bladder [US renal/blad retro comp] Urgent 03/31/22 09:49 US venous doppler LE BI Urgent 03/31/22 16:33 CT chest diagnostic w con Urgent Hospital Course (1) Acute hypoxemic respiratory failure: ARDS and acute hypoxic respiratory failure, CXRs suggest aspiration pneumonia. RSV was also positive on admission. Vent suction sputum cx from 03/25 growing MSSA. Extubated on 03/29, but then re-intubated after approx. 2 hours due to laryngospasm, respiratory distress, and hypoxemia. - Extubated again on 03/31. Had great O2 saturation per RN (~95%), but became agitated, violent, and required re-intubation. - Self-extubated on 04/01. - complete Keflex po post discharge for MSSA pneumonia. -> Presently now stable on room air. (2) Agitation: Both episodes of extubation, the patient became agitated and violent, requiring re-intubation for his safety and safety of staff. - Now extubated. Concern for alcohol withdrawal as etiology of his agitation. -> ICU treated with phenobarb PO & IV PRN - No more indication of withdrawals. Given phenobarb half-life, will likely not need further tapering. (3) Hypotension: After re-intubation on 03/29, patient became hypotensive. Likely due to sedation requirements and possibly some hypovolemia. - Required Levophed for approx. 12 hours. Off by 10pm on 03/29. (4) Seizure: Patient was brought to the hospital after a seizure, no previous history of seizure according to his mother. Observed seizure activity while in the ER, initial lactate & prolactin elevated. Patient reported he uses about 7g of marijuana daily and also drinks daily alcohol. Extreme agitation in ER required intubation and sedation MRI brain essentially wnl, no suggestion of encephalitis, no meningeal enhancement. Initially empirically covered with acyclovir/azithromycin/ceft riaxone/vancomycin/dexamethasone - LP on 03/27 with negative BioFire panel. CSF culture pending. De-escalated abx to cefazolin no further seizures, counselled about drug and alcohol use (5) Aspiration pneumonia: Following seizure. - As above (6) HTN (hypertension): resolved (7) Delirium: resolved Infectious encephalopathy with possible alcohol withdrawal. - Conservative measures. As above Total Time Total Time Spent Total Time Spent (In Minutes): It required greater than 30 minutes to prepare this patient for discharge Discharge Plan Discharge Items Patient Disposition: Home - Self-Care Reason For Visit: SEIZURE, INTUBATED FOR AGITATION Discharge Diagnosis: seizure respiratory failure pneumonia cannabis use Activity: Per Instructions section Non-emergency contact: Primary Care Provider Call non-emergency contact if: your symptoms worsen Follow-up/Referrals: PCP,NO [Primary Care Provider] - Diet: Regular Addtl Attending Provider Instructions: please finish antibiotics do not use cannabis and avoid excessive alcohol please see your family doctor for follow up Pending Studies at Discharge: No [facility]Alone [facility] Medications and DC Order Prescriptions: New cephalexin 500 mg capsule 500 mg PO BID 5 Days Qty: 10 0RF Discharge Orders: Discharge Order (Routine); Ordered 04/03/22 Ordered By: Yehuda Graham Admission Data Admit Date/Time: 03/24/22 17:00 Attending Provider: Yehuda Graham Admit Provider: Orlin Euceda Primary Care Provider: PCP,NO Other Providers: Orlin Euceda ; Geo Coppola ; Gilmar Ramos Coding Level of Care Code D/C DAY MANAGEMENT >30 MINS Diagnoses Acute hypoxemic respiratory failure J96.01 Agitation R45.1 Hypotension I95.9 Seizure R56.9 Aspiration pneumonia J69.0 HTN (hypertension) I10 Delirium R41.0
[2022-04-04 01:57] LABS: ANCA Screen Negative (Negative); Anti Nuclear Antibody Screen POSITIVE (NEGATIVE); Anti-Glom Basement Antibody <1.0 AI (<1.0)
== END 2022-04-03 13:07 | disposition home or self-care (01) | DRG 870 ==
LOC: ED 13:05 → 1E 17:00 → SUATTDRO 17:00 → 1E 17:55 → 3N 04-02 16:50
DX: J80 Acute respiratory distress syndrome; F12.10 Cannabis abuse, uncomplicated; F10.239 Alcohol dependence with withdrawal, unspecified; G40.89 Other seizures; A41.01 Sepsis due to Methicillin susceptible Staphylococcus aureus; I95.2 Hypotension due to drugs; N17.9 Acute kidney failure, unspecified; J15.211 Pneumonia due to Methicillin susceptible Staphylococcus aureus; G93.40 Encephalopathy, unspecified; J69.0 Pneumonitis due to inhalation of food and vomit; E86.1 Hypovolemia; J21.0 Acute bronchiolitis due to respiratory syncytial virus; E87.20 Acidosis, unspecified; F17.200 Nicotine dependence, unspecified, uncomplicated; R45.1 Restlessness and agitation